=== PATIENT | female | born 1945 | race Caucasian/White ===

== ENCOUNTER 2016-07-03 17:02 | Observation (INO) | payer MEDICARE, BC ==
[~2016-07-03] VITALS: Ht 160 cm; Wt 56.2 kg
--- OUTSIDE RECORDS SUMMARY | 2016-07-03 17:08 | XMS REPORT | Summary of Care ---
Author Author Sherry Mckeon M.D. Unknown Address [address], [place] [id number] Phone Unavailable Care Team Providers Care Systems Trainer Name Role Phone Kadeem Jade M.D. Unavailable Unavailable Sherry Mckeon M.D. 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, K22.70) Status: Active Anemia (285.9, D64.9) Status: Active Chronic constipation (564.00, K59.09) Status: Active History of proctitis (V12.79, Z87.19) Status: Active Macrocytosis (289.89, D75.89) Status: Active Nicotine dependence (305.1, F17.200) Status: Active 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, 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) Status: Active Pseudophakia of left eye (V43.1, Z96.1) Status: Active Pseudophakia of right eye (V43.1, Z96.1) Status: Active WBC decreased (288.50, D72.819) Status: Active H/O endovascular stent graft for abdominal aortic aneurysm (V43.4, Z95.828) Status: Active Current every day smoker (305.1, F17.200) Status: Active Tobacco abuse counseling (V65.42, Z71.6) Status: Active Duodenal ulcer (532.90, K26.9) Status: Active Essential hypertension (401.9, I10) Status: Active Hypercholesterolemia (272.0, E78.0) Status: Active Osteoporosis (733.00, M81.0) Status: Active Malignant neoplasm of female breast (174.9, C50.919) Status: Active CAD S/P percutaneous coronary angioplasty (414.01, I25.10) Status: Active Actinic keratosis (702.0, L57.0) Status: Active History of squamous cell carcinoma of skin (V10.83, Z85.828) Status: Active Medications Name Dates Details Lisinopril 20 MG Oral Tablet take one tablet by mouth every day Quantity: 180 MckeonSherry M.D.* Started 29-Dec-2007 ActiveClaritin 10 MG Oral Capsule Take one tab daily as needed * Quantity: 30 Refills: 3 MckeonSherry M.D.* Started 11-Dec-2008 ActiveMetoprolol Tartrate 25 MG Oral Tablet TAKE ONE-HALF TABLET BY MOUTH TWO TIMES A DAY * Quantity: 90 Refills: 3 Kadeem Jade M.D.* Started 18-Nov-2012 ActiveAspirin EC 81 MG Oral Tablet Delayed Release TAKE 1 TABLET DAILY DIRECTED. * Quantity: 30 Refills: 0 MckeonSherry M.D.* Started 19-May-2013 ActiveBiotin 5000 MCG Oral Capsule TAKE 1 CAPSULE DAILY. * Refills: 0 MckeonSherry M.D.* Started 19-May-2013 ActiveVitamin D 1000 UNIT CAPS Take one tab daily. * Refills: 0 MckeonSherry M.D.* Started 19-May-2013 ActiveVitamin C 500 MG Oral Tablet TAKE 1 TABLET DAILY. * Refills: 0 MckeonSherry M.D.* Started 19-May-2013 ActiveDocusate Sodium 100 MG Oral Tablet TAKE 1 TABLET DAILY DIRECTED. * Refills: 0 MckeonSherry M.D.* Started 19-May-2013 ActiveAtorvastatin Calcium 20 MG Oral Tablet TAKE 1 TABLET DAILY. * Quantity: 180 Refills: 1 MckeonSherry M.D.* Started 09-Jan-2014 ActiveZoledronic Acid 5 MG/100ML Intravenous Solution INFUSE 5MG INTRAVENOUSLY OVER 15 MINUTES DIRECTED. * Quantity: 1 Refills: 0 MckeonSherry M.D.* Started 22-Jun-2014 ActivePepcid 20 MG Oral Tablet TAKE 1 TABLET DAILY DIRECTED. * Refills: 0 MckeonSherry M.D.* Started 09-Nov-2014 ActiveGuaiFENesin ER 600 MG Oral Tablet Extended Release 12 Hour TAKE 1 TABLET TWICE DAILY NEEDED. * Refills: 0 Sherry Mckeon M.D.* Started 18-May-2015 Active Allergies and Adverse Reactions Name Dates Details Morphine Derivatives Status: Active Penicillins Status: Active Past Medical History Name Dates Details History of Actinic keratosis (702.0, L57.0) Status: Resolved History of actinic keratosis (V13.3, Z87.2) Status: Resolved History of Basal Cell Carcinoma Of The Skin Of The Hand (173.61) Status: Resolved History of Combined form of senile cataract, left (366.19, H25.812) Status: Resolved History of diarrhea (V12.79, Z87.898) Status: Resolved History of diverticulitis of colon (V12.79, Z87.19) Status: Resolved History of Diverticulosis of colon (562.10, K57.30) Status: Resolved History of Encounter for screening colonoscopy (V76.51, Z12.11) Status: Resolved History of gastrointestinal hemorrhage (V12.79, Z87.19) Status: Resolved History of hyperopia (V12.49, Z86.69) Status: Resolved History of Microscopic hematuria (599.72, R31.2) Status: Resolved History of Multiparity (V61.5, Z64.1) Status: Resolved History of Postmenopausal status, age-related (V49.81, Z78.0) Status: Resolved History of Pre-operative exam (V72.84, Z01.818) Status: Resolved History of Proctitis (569.49, K62.89) Status: Resolved History of Rectal bleeding (569.3, K62.5) Status: Resolved History of Skin Cancer (V10.83) Status: Resolved History of Squamous Cell Carcinoma Of The Skin Of The Upper Extremities (173.6 ) Status: Resolved History of Visit for screening (V82.9, Z13.9) Status: Resolved Procedures Procedure Dates Details History of Total Knee Arthroplasty History of Tonsillectomy History of Breast Surgery Simple Mastectomy Completed:19-Oct-2012 History of Axillary Lymphadenectomy Completed:19-Oct-2012 History of Lymphatic Surgery Intraoperative Identification Of [place] Node Completed:19-Oct-2012 History of Deep Axillary Lymph Node Biopsy Completed:19-Oct-2012 History of Endovascular Repair Of Abdominal Aorta Aneurysm Completed: History of Endovasc Repair Aort Aneurysm Infrarenal Modul Bifurc Prosth Completed:04-Jan-2013 History of Placement Of Selective Arterial Catheter - Aortic Approach Completed:04-Jan-2013 History of Open Femoral Artery Expos For Deliv Aortic Endovasc Prosth Completed:04-Jan-2013 History of Central IV Line Child Age 5 Or Older Completed:04-Jan-2013 History of Diagnostic Esophagogastroduodenoscopy History of Upr GI Endoscopy With Control Of Bleeding History of Central IV Child Age 5 Or Older W/ Tunneling & Subcutan Port Completed:09-Feb-2013 History of Duodenoscopy With Biopsy History of Gastrotomy With Suture Of Bleeding Ulcer History of Vagotomy History of Cholecystectomy History of Tunneled Central IV Removal With Port Completed:07-Jun-2014 History of Extracaps Cataract Extract With Prosthesis Insert Right Eye History of Extracaps Cataract Extract With Prosthesis Insert Left Eye History of Cataract Extraction Procedures not documented Immunization Name Dates Details Diphtheria-Tetanus Toxoids 6.7-5 LFU/0.5ML Intramuscular Injectable Administered on:07-Jun-2006 Zoster (Zostavax) Administered on:04-Jun-2009 Fluzone Intramuscular Injectable Lot #: [id number] Administered on:01-Jan-2010 Influenza Administered on:08-Nov-2011 Pneumo (Pneumovax) Lot #: [id number] Administered on:05-Jan-2012 Influenza Lot #: [id number] Administered on:20-Dec-2012 Fluzone Intramuscular Injectable Lot #: [id number] Administered on:09-Jan-2014 Prevnar 13 Intramuscular Suspension Lot #: [id number] Administered on:22-Jun-2014 Family History natural daughter* Name Dates Details Family history of Adopted Status: Active natural son* Name Dates Details Family history of Adopted Status: Active Mother* Name Dates Details Family history of Acute Myocardial Infarction (V17.3) Status: Active Family history of Essential Hypertension Status: Active Family history of Skin Cancer (V16.8) Status: Active Family history of Mother At Age ____ Status: Active Father* Name Dates Details Family history of Heart Disease (V17.49) Status: Active Family history of CABG Status: Active Social History Name Dates Details Smoking Status* Current every day smoker Vital Signs Date Test Result Details 09:17 BP Systolic 140 mm[Hg] Status: BP Diastolic 70 mm[Hg] Status: Heart Rate 66 /min Status: Height 64.5 in Status: Weight 130 lb Status: Body Mass Index Calculated 21.97 kg/m2 Status: Body Surface Area Calculated 1.64 m2 Status: Results Date Description Value Details 08:10 CBC w/ Auto Diff 7150 Comments: Fastin hours WBC 4.6 K/uL (Better) Range: 4.5-11.0 RBC 4.19 mil/uL (Better) Range: 3.60-5.00 HGB 14.3 g/dL (Better) Range: 12.0-16.0 HCT 42.7 % (Better) Range: 36.0-48.0 MCV 101.9 fL (Above high threshold) Range: 80.0-99.0 MCH 34.1 pg (Above high threshold) Range: 27.3-32.5 MCHC 33.4 % (Better) Range: 32.0-36.0 RDW 13.8 % (Better) Range: 11.6-14.8 PLATELETS 197 K/uL (Better) Range: 150-400 MPV 7.7 fL (Better) Range: 6.0-11.0 %NEUTRO 68.8 % (Better) Range: 37.0-80.0 %LYMPHS 17.5 % (Better) Range: 13.0-50.0 %MONO 9.1 % (Better) Range: 0.0-12.0 %EOS 2.2 % (Better) Range: 0.0-7.0 %BASO 0.6 % (Better) Range: 0.0-2.5 %ANIBAL 1.8 % (Better) Range: 0.0-5.0 NEUTRO 3.2 K/uL (Better) Range: 2.0-6.9 LYMPHS 0.8 K/uL (Better) Range: 0.6-3.4 MONOS 0.4 K/uL (Better) Range: 0.0-0.9 EOS 0.1 K/uL (Better) Range: 0.0-0.7 BASO 0.0 K/uL (Better) Range: 0.0-0.2 08:22 Urinalysis, Reflex to Microscopic or Culture PRN 8005 Comments: Fastin hours pH 7.5 (Better) Range: 5.0-7.5 SP GRAVITY 1.010 (Better) Range: 1.010-1.030 APPEARANCE CLEAR (Better) Range: Clear COLOR YELLOW (Better) Range: Straw-Yellow PROTEIN NEGATIVE mg/dL (Better) Range: Negative-Trace GLUCOSE NEGATIVE mg/dL (Better) Range: Negative KETONE NEGATIVE mg/dL (Better) Range: Negative BILIRUB NEGATIVE (Better) Range: Negative BLOOD TRACE (Abnormal) Range: Negative UROBIL 1.0 EU/dL (Better) Range: 0.2-1.0 NITRITE NEGATIVE (Better) Range: Negative LEUK TRACE (Abnormal) Range: Negative 08:22 Urine Microscopic UMIC Comments: Fastin hours WBC 3-5 /HPF (Better) Range: 0-5 RBC 0-2 /HPF (Better) Range: 0-2 EPITH 0-2 /HPF (Better) Range: 0-10 08:57 LIPID PROFILE 1184 Comments: Fastin hours CHOLESTEROL 153 mg/dL (Better) Range: <200 TRIGLYCERIDES 40 mg/dL (Better) Range: 30-200 HDL Cholesterol 64 mg/dL (Better) Range: >39 NON HDL CHOLESTEROL 89 (Better) CARDIAC RSK FACTOR 2.4 units (Below low threshold) Range: 4.4-5.0 LDL - CALCULATED 81 mg/dL (Better) Range: 0-130 08:57 Comprehensive Metabolic Panel 1212 Comments: Fastin hours SODIUM 135 mmol/L (Better) Range: 133-144 POTASSIUM 4.2 mmol/L (Better) Range: 3.5-5.1 CHLORIDE 98 mmol/L (Better) Range: 98-110 CARBON DIOXIDE 25.4 mmol/L (Better) Range: 23.0-33.0 ANION GAP 12 mmol/L (Better) Range: 6-16 BUN 6 mg/dL (Below low threshold) Range: 7-18 CREATININE, SERUM 0.60 mg/dL (Better) Range: 0.55-1.02 Comments: Please note new reference ranges effective 2014.----- BUN:CREATININE RATIO 10 (Better) EST GFR, >60 ml/min (Better) Range: >60 EST GFR, NON-AFR TAJIK >60 ml/min (Better) Range: >60 Comments: EST GFR is reported in ml/min per 1.73 m2 of body surface area. For -Czech, please multiple result by 1.2.----- GLUCOSE 90 mg/dL (Better) Range: 70-100 ALK PHOSPHATASE 71 U/L (Better) Range: 46-116 TOTAL BILIRUBIN 0.50 mg/dL (Better) Range: 0.20-1.00 AST 20 U/L (Better) Range: 8-35 ALT 24 U/L (Better) Range: 14-59 Comments: Please note new reference ranges. Effective 05/18/2014.----- ALBUMIN 3.2 g/dL (Below low threshold) Range: 3.4-5.0 TOTAL PROTEIN 7.1 g/dL (Better) Range: 6.4-8.2 A/G RATIO 0.8 units (Below low threshold) Range: 1.0-1.8 CALCIUM 8.8 mg/dL (Better) Range: 8.5-10.1 09:24 THYROID STIM. HORMONE 3602 Comments: Fastin hours THYROID STIM. HORMONE 0.738 uIU/mL (Better) Range: 0.550-4.780 Comments: No established reference ranges for infants and children <2 years of age----- 14:17 CT CTA ABD WITH IV CONTRAST Comments: Exam Date: 08/20/2015 12: 59Dictation Date: 08/20/2015 14:17 XC CTA ABD (Better) Plan of Care Planned Observations* Name Dates Details Planned Goals not documented Goal Planned Encounters* Appointment; Provider: Jerod Paz On 02-Jul-2016 08:30 * Appointment; Provider: Sherry Mckeon On 02-Jan-2016 09:00 * Appointment; Provider: Kadeem Jade On 19-Dec-2015 09:30 * Appointment; Provider: Ja Palacios On 13:00 * Appointment; Provider: Schedule Radiology On 08-May-2015 08:30 * Appointment; Provider: Schedule Radiology On 09-Feb-2015 09:30 * Appointment; Provider: Tonya Dumont On 31-Jan-2015 11:45 * Appointment; Provider: Schedule Radiology On 06-Dec-2014 09:30 * Appointment; Provider: Schedule Radiology On 09:30 * Appointment; Provider: Schedule Radiology On 09:30 * Appointment; Provider: Tonya Dumont On 13:45 * Appointment; Provider: Schedule Radiology On 11:30 * Appointment; Provider: Schedule Radiology On 11:30 * Appointment; Provider: Schedule Radiology On 09:30 * Appointment; Provider: Schedule Radiology On 09:30 * Appointment; Provider: Daniele Gil On 08:00 * Appointment; Provider: Daniele Gil On 09-Jun-2013 10:00 * Appointment; Provider: Daniele Gil On 06-Apr-2013 14:00 * Appointment; Provider: Daniele Gil On 04-Jan-2013 07:30 * Appointment; Provider: Kadeem Jade On 30-Nov-2012 08:15 * Appointment; Provider: Daniele Gil On 19-Oct-2012 13:30 * Appointment; Provider: Sherry Mckeon On 04-Jul-2008 08:00 * Appointment; Provider: Sherry Mckeon On 08-Oct-2007 08:00 Instructions * Instructions not documented Encounters Appointment; Sherry Mckeon Encounter Diagnosis: Problem not documented On 09:30 Appointment; Jerod Paz Encounter Diagnosis: Problem not documented On 29-Jun-2015 08:30 Appointment; Sherry Mckeon Encounter Diagnosis: Problem not documented On 18-May-2015 13:45 Appointment; Sherry Mckeon Encounter Diagnosis: Problem not documented On 26-Jan-2015 14:00 Appointment; Kadeem Jade Encounter Diagnosis: Problem not documented On 13-Dec-2014 09:30 Appointment; Sherry Mckeon Encounter Diagnosis: Problem not documented On 09-Nov-2014 09:30 Appointment; Daniele Gil Encounter Diagnosis: Problem not documented On 13:00 Appointment; Ja Palacios Encounter Diagnosis: Problem not documented On 13:45 Appointment; Jerod Paz Encounter Diagnosis: Problem not documented On 18:15 Appointment; Jerod Paz Encounter Diagnosis: Problem not documented On 10:45 Appointment; Daniele Gil Encounter Diagnosis: Problem not documented On 14:00 Appointment; Ja Palacios Encounter Diagnosis: Problem not documented On 09:15 Appointment; Daniele Gil Encounter Diagnosis: Problem not documented On 10:30 Appointment; Ja Palacios Encounter Diagnosis: Problem not documented On 08:00 Appointment; Ja Palacios Encounter Diagnosis: Problem not documented On 09:00 Appointment; Ja Palacios Encounter Diagnosis: Problem not documented On 04-Aug-2014 10:45 Appointment; Ja Palacios Encounter Diagnosis: Problem not documented On 26-Jul-2014 08:30 Appointment; Ja Palacios Encounter Diagnosis: Problem not documented On 25-Jul-2014 12:00 Appointment; Ja Palacios Encounter Diagnosis: Problem not documented On 11-Jul-2014 09:00 Appointment; Ja Palacios Encounter Diagnosis: Problem not documented On 04-Jul-2014 15:00 Appointment; Jerod Paz Encounter Diagnosis: Problem not documented On 26-Jun-2014 18:00 Appointment; Marito Nickerson Encounter Diagnosis: Problem not documented On 23-Jun-2014 09:15 Appointment; Jerod Paz Encounter Diagnosis: Problem not documented On 23-Jun-2014 08:30 Appointment; Sherry Mckeon Encounter Diagnosis: Problem not documented On 22-Jun-2014 09:00 Appointment; Daniele Gil Encounter Diagnosis: Problem not documented On 21-Jun-2014 13:15 Appointment; Daniele Gil Encounter Diagnosis: Problem not documented On 07-Jun-2014 10:00 Appointment; Sherry Mckeon Encounter Diagnosis: Problem not documented On 09-Jan-2014 15:15 Appointment; Kadeem Jade Encounter Diagnosis: Problem not documented On 14-Dec-2013 09:30 Appointment; Bird Reyes Encounter Diagnosis: Problem not documented On 30-Nov-2013 09:30 Appointment; Indira Dumont Encounter Diagnosis: Problem not documented On 14:30 Appointment; Daniele Gil Encounter Diagnosis: Problem not documented On 10:00 Appointment; Sherry Mckeon Encounter Diagnosis: Problem not documented On 14:45 Appointment; Bird Reyes Encounter Diagnosis: Problem not documented On 11:30 Appointment; Daniele Gil Encounter Diagnosis: Problem not documented On 13:15
--- OUTSIDE RECORDS SUMMARY | 2016-07-03 17:08 | XMS REPORT ---
Author Author GENERATED, SYSTEM Organization Unknown Address Unknown Phone Unavailable Care Team Providers Care Senior Process Engineer Name Role Phone MD RUSSEL, GARRETT [phone] Reason For Visit Reason for Visit from 04/10/2015 10:20 AM:* Pt Stated Reason for Adm : Neupogen Injection Chief Complaint D70.1, Z92.21 Social History Functional Status Functional Status from 05/04/2015 10:25 AM:* LOC : Alert * Oriented To : Person,Place,Time Functional Status from 05/03/2015 10:18 AM:* LOC : Alert * Oriented To : Person,Place,Time,Event Functional Status from 05/02/2015 9:52 AM:* LOC : Alert * Oriented To : Person,Place,Time,Event Functional Status from 05/01/2015 9:22 AM:* LOC : Alert * Oriented To : Person,Place,Time,Event Functional Status from 04/27/2015 8:12 AM:* LOC : Alert * Oriented To : Person,Place,Time Functional Status from 04/26/2015 8:54 AM:* LOC : Alert * Oriented To : Person,Place,Time,Event Functional Status from 04/25/2015 9:30 AM:* LOC : Alert * Oriented To : Person,Place,Time Functional Status from 04/20/2015 10:25 AM:* LOC : Alert * Oriented To : Person,Place,Time Functional Status from 04/19/2015 9:37 AM:* LOC : Alert * Oriented To : Person,Place,Time Functional Status from 04/18/2015 9:54 AM:* LOC : Alert * Oriented To : Person,Place,Time Functional Status from 04/17/2015 11:03 AM:* LOC : Alert * Oriented To : Person,Place,Time,Event Functional Status from 04/13/2015 9:38 AM:* LOC : Alert * Oriented To : Person,Place,Time Functional Status from 04/12/2015 9:53 AM:* LOC : Alert * Oriented To : Person,Place,Time,Event Functional Status from 04/11/2015 10:54 AM:* LOC : Alert * Oriented To : Person,Place,Time Functional Status from 04/10/2015 10:20 AM:* LOC : Alert * Oriented To : Person,Place,Time,Event Vital Signs Hospital Vital Signs from 05/04/2015 10:25 AM:* Height : 5/4 ft,in * Temperature : 97.5 F * Pulse : 65 * Respirations : 18 * BP : 131/62 Hospital Vital Signs from 05/03/2015 10:18 AM:* Height : 5/4 ft,in * Temperature : 97.5 F * Pulse : 65 * Respirations : 18 * BP : 131/61 Hospital Vital Signs from 05/02/2015 9:42 AM:* Height : 5/4 ft,in * Temperature : 97.8 F * Pulse : 69 * Respirations : 20 * BP : 117/56 Hospital Vital Signs from 05/01/2015 9:23 AM:* Height : 5/4 ft,in * Temperature : 97.2 F * Pulse : 68 * BP : 162/88 Hospital Vital Signs from 04/27/2015 8:10 AM:* Height : 5/4 ft,in * Temperature : 96.5 F * Pulse : 73 * BP : 148/63 Hospital Vital Signs from 04/26/2015 8:54 AM:* Height : 5/4 ft,in * Temperature : 97.7 F * Pulse : 58 * Respirations : 18 * BP : 127/63 Hospital Vital Signs from 04/25/2015 10:04 AM:* Height : 5/4 ft,in * Temperature : 97.6 F * Pulse : 55 * Respirations : 18 * BP : 131/68 Hospital Vital Signs from 04/20/2015 10:05 AM:* Height : 5/4 ft,in * Temperature : 98.4 F * Pulse : 60 * Respirations : 18 * BP : 121/59 Hospital Vital Signs from 04/19/2015 9:35 AM:* Height : 5/4 ft,in * Temperature : 96.8 F * Pulse : 62 * Respirations : 18 * BP : 135/57 Hospital Vital Signs from 04/18/2015 9:54 AM:* Height : 5/4 ft,in * Temperature : 98.9 F * Pulse : 60 * Respirations : 18 * BP : 110/63 Hospital Vital Signs from 04/17/2015 10:45 AM:* Height : 5/4 ft,in * Temperature : 98.7 F * Pulse : 57 * Respirations : 18 * BP : 130/66 Hospital Vital Signs from 04/13/2015 9:55 AM:* Height : 5/4 ft,in * Temperature : 97.0 F * Pulse : 63 * Respirations : 18 * BP : 131/54 Hospital Vital Signs from 04/12/2015 9:52 AM:* Height : 5/4 ft,in * Temperature : 96.9 F * Pulse : 63 * Respirations : 16 * BP : 135/63 Hospital Vital Signs from 04/11/2015 10:56 AM:* Height : 5/4 ft,in * Temperature : 96.6 F * Pulse : 64 * Respirations : 18 * BP : 118/56 Hospital Vital Signs from 04/10/2015 10:20 AM:* Height : 5/4 ft,in * Temperature : 97.3 F * Pulse : 62 * Respirations : 18 * BP : 136/67 Results Problems Encounter Diagnosis No relevant problems exist. Additional Problems * Abdominal Aortic Aneurysm Comment:Problem resolved by [facility] upon Discharge, Status:Resolved. * Anemia Comment:Problem resolved by [facility] upon Discharge, Status: Resolved. * Coronary Arteriosclerosis Comment:Problem resolved by [facility] upon Discharge, Status:Resolved. * Excision of Breast Tissue Comment:Problem resolved by [facility] upon Discharge, Status:Resolved. * Repair of Aneurysm of Abdominal Aorta Comment:Problem resolved by [facility] upon Discharge, Status:Resolved. Encounters Encounter Diagnosis No relevant problems exist. Plan of Care Procedures * Completed Procedure Code: 00.00 Procedure Name: not valued, on 07/11/2014 12: 00 AM * Completed , on 04/06/2013 12:00 AM * Completed , on 04/06/2013 12:00 AM * Completed , on 04/06/2013 12:00 AM * Completed , on 04/06/2013 12:00 AM * Completed , on 04/06/2013 12:00 AM * Completed , on 04/06/2013 12:00 AM * Completed , on 04/04/2013 12:00 AM * Completed , on 01/04/2013 12:00 AM * Completed , on 01/04/2013 12:00 AM * Completed , on 01/04/2013 12:00 AM * Completed , on 11/30/2012 12:00 AM * Completed , on 11/30/2012 12:00 AM * Completed , on 11/30/2012 12:00 AM * Completed , on 11/30/2012 12:00 AM * Completed , on 11/30/2012 12:00 AM * Completed , on 11/30/2012 12:00 AM * Completed , on 11/30/2012 12:00 AM * Completed , on 11/30/2012 12:00 AM * Completed , on 11/30/2012 12:00 AM * Completed , on 10/19/2012 12:00 AM * Completed , on 10/19/2012 12:00 AM * Completed , on 10/19/2012 12:00 AM * Completed , on 10/19/2012 12:00 AM * Completed , on 10/19/2012 12:00 AM * Completed , on 10/19/2012 12:00 AM Immunizations No immunizations administered or ordered. Hospital Course Hospital Discharge Instructions Allergies, Adverse Reactions, Alerts * Penicillins causes "voice changed". * morphine causes Nausea. * No Latex Allergy. * No IV Contrast Allergy. * No Known Food Allergies. Medication Medication reconciliation has not been performed.
--- OUTSIDE RECORDS SUMMARY | 2016-07-03 17:08 | XMS REPORT ---
Author Author GENERATED, SYSTEM Organization Unknown Address Unknown Phone Unavailable Care Team Providers Care Adjunct English Instructor Name Role Phone MD RUSSEL, GARRETT [phone] Reason For Visit Reason for Visit from 01/09/2015 9:10 AM:* Pt Stated Reason for Adm : Neupogen Chief Complaint D70.1, Z92.21 Social History Functional Status Functional Status from 02/02/2015 11:22 AM:* LOC : Alert * Oriented To : Person,Place,Time,Event Functional Status from 02/01/2015 7:58 AM:* LOC : Alert * Oriented To : Person,Place,Time Functional Status from 01/31/2015 8:17 AM:* LOC : Alert * Oriented To : Person,Place,Time,Event Functional Status from 01/30/2015 10:37 AM:* LOC : Alert * Oriented To : Person,Place,Time,Event Functional Status from 01/26/2015 8:44 AM:* LOC : Alert * Oriented To : Person,Place,Time,Event Functional Status from 01/25/2015 7:44 AM:* LOC : Alert * Oriented To : Person,Place,Time,Event Functional Status from 01/24/2015 8:40 AM:* LOC : Alert * Oriented To : Person,Place,Time Functional Status from 01/23/2015 9:03 AM:* LOC : Alert * Oriented To : Person,Place,Time,Event Functional Status from 01/19/2015 9:14 AM:* LOC : Alert * Oriented To : Person,Place,Time,Event Functional Status from 01/18/2015 9:04 AM:* LOC : Alert * Oriented To : Person,Place,Time,Event Functional Status from 01/17/2015 8:23 AM:* LOC : Alert * Oriented To : Person,Place,Time Functional Status from 01/16/2015 7:26 AM:* LOC : Alert * Oriented To : Person,Place,Time,Event Functional Status from 01/12/2015 8:12 AM:* LOC : Alert * Oriented To : Person,Place,Time,Event Functional Status from 01/11/2015 8:04 AM:* LOC : Alert * Oriented To : Person,Place,Time,Event Functional Status from 01/10/2015 7:50 AM:* LOC : Alert * Oriented To : Person,Place,Time Functional Status from 01/09/2015 9:10 AM:* LOC : Alert * Oriented To : Person,Place,Time,Event Vital Signs Hospital Vital Signs from 02/02/2015 11:20 AM:* Height : 5/4 ft,in * Temperature : 98.0 F * Pulse : 69 * Respirations : 18 * BP : 125/64 Hospital Vital Signs from 02/01/2015 7:58 AM:* Height : 5/4 ft,in * Temperature : 97.7 F * Pulse : 68 * Respirations : 18 * BP : 122/61 Hospital Vital Signs from 01/31/2015 8:16 AM:* Height : 5/4 ft,in * Temperature : 97.0 F * Pulse : 65 * Respirations : 18 * BP : 130/65 Hospital Vital Signs from 01/30/2015 10:32 AM:* Height : 5/4 ft,in * Temperature : 98.2 F * Pulse : 61 * Respirations : 18 * BP : 130/75 Hospital Vital Signs from 01/26/2015 8:45 AM:* Height : 5/4 ft,in * Temperature : 97.6 F * Pulse : 62 * Respirations : 18 * BP : 128/66 Hospital Vital Signs from 01/25/2015 7:45 AM:* Height : 5/4 ft,in * Temperature : 98.1 F * Pulse : 62 * Respirations : 18 * BP : 126/59 Hospital Vital Signs from 01/24/2015 8:47 AM:* Height : 5/4 ft,in * Temperature : 98.6 F * Pulse : 64 * Respirations : 18 * BP : 121/54 Hospital Vital Signs from 01/23/2015 9:02 AM:* Height : 5/4 ft,in * Temperature : 98.7 F * Pulse : 69 * Respirations : 18 * BP : 150/69 Hospital Vital Signs from 01/19/2015 9:17 AM:* Height : 5/4 ft,in * Temperature : 96.8 F * Pulse : 63 * Respirations : 18 * BP : 133/63 Hospital Vital Signs from 01/18/2015 9:04 AM:* Height : 5/4 ft,in * Temperature : 97.1 F * Pulse : 66 * Respirations : 18 * BP : 134/60 Hospital Vital Signs from 01/17/2015 8:23 AM:* Height : 5/4 ft,in * Temperature : 98.2 F * Pulse : 60 * Respirations : 18 * BP : 132/57 Hospital Vital Signs from 01/16/2015 7:26 AM:* Height : 5/4 ft,in * Temperature : 98.0 F * Pulse : 67 * Respirations : 18 * BP : 139/71 Hospital Vital Signs from 01/12/2015 8:12 AM:* Height : 5/4 ft,in * Temperature : 98.3 F * Pulse : 66 * Respirations : 18 * BP : 133/68 Hospital Vital Signs from 01/11/2015 8:04 AM:* Height : 5/4 ft,in * Temperature : 97.0 F * Pulse : 61 * Respirations : 18 * BP : 134/66 Hospital Vital Signs from 01/10/2015 7:50 AM:* Height : 5/4 ft,in * Temperature : 98.0 F * Pulse : 68 * Respirations : 18 * BP : 139/66 Hospital Vital Signs from 01/09/2015 9:12 AM:* Height : 5/4 ft,in * Temperature : 98.7 F * Pulse : 69 * Respirations : 18 * BP : 154/76 Results Problems Encounter Diagnosis No relevant problems [...]
--- OUTSIDE RECORDS SUMMARY | 2016-07-03 17:08 | XMS REPORT | Summary of Care ---
Author Author Sherry Mckeon M.D. Unknown Address [address], [place] [id number] Phone Unavailable Care Team Providers Care Divinity Professor Name Role Phone Kadeem Jade M.D. Unavailable Unavailable Sherry Mckeon M.D. 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, K22.70) Status: Active Anemia (285.9, D64.9) Status: Active GI bleed (578.9, K92.2) Status: Active 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, 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 Postmenopausal status, age-related (V49.81, Z78.0) Status: Active Duodenal ulcer (532.90, K26.9) Status: Active Sinusitis (473.9, J32.9) Status: Active Encounter for screening colonoscopy (V76.51, Z12.11) Status: Active Rectal bleeding (569.3, K62.5) Status: Active Chronic constipation (564.00, K59.00) Status: Active Diverticulosis of colon (562.10, K57.30) Status: Active History of proctitis (V12.79, Z87.19) Status: Active Macrocytosis (289.89, D75.89) Status: Active Aneurysm of abdominal aorta (441.4, I71.4) Status: Active Nicotine dependence (305.1) Status: Active Tobacco abuse counseling (V65.42, Z71.6) Status: Active Hypertension (401.9, I10) Status: Active Hypercholesterolemia (272.0, E78.0) Status: Active CAD S/P percutaneous coronary angioplasty (414.01, I25.10) Status: Active Osteoporosis (733.00, M81.0) Status: Active Malignant neoplasm of female breast (174.9, C50.919) Status: Active Medications Name Dates Details Lisinopril 20 MG Oral Tablet take one tablet by mouth every day Quantity: 180 MckeonSherry M.D.* Started 29-Dec-2007 ActiveClaritin 10 MG Oral Capsule Take one tab daily as needed * Quantity: 30 Refills: 3 MckeonSherry M.D.* Started 11-Dec-2008 ActiveMetoprolol Tartrate 25 MG Oral Tablet TAKE ONE-HALF TABLET BY MOUTH TWO TIMES A DAY * Quantity: 90 Refills: 1 Kadeem Jade M.D.* Started 18-Nov-2012 ActiveAspirin EC 81 MG Oral Tablet Delayed Release TAKE 1 TABLET DAILY DIRECTED. * Quantity: 30 Refills: 0 MckeonSherry M.D.* Started 19-May-2013 ActiveLutein 20 MG Oral Capsule TAKE DIRECTED. * Refills: 0 MckeonSherry M.D.* Started 19-May-2013 ActiveBiotin 5000 MCG Oral Capsule TAKE 1 CAPSULE DAILY. * Refills: 0 MckeonSherry M.D.* Started 19-May-2013 ActiveVitamin D 1000 UNIT Oral Capsule Take one tab daily. * Refills: 0 MckeonSherry M.D.* Started 19-May-2013 ActiveVitamin C 500 MG Oral Tablet TAKE 1 TABLET DAILY. * Refills: 0 MckeonSherry M.D.* Started 19-May-2013 ActiveDocusate Sodium 100 MG Oral Tablet TAKE 1 TABLET DAILY DIRECTED. * Refills: 0 MckeonSherry M.D.* Started 19-May-2013 ActiveAtorvastatin Calcium 20 MG Oral Tablet TAKE 1 TABLET DAILY. * Quantity: 180 Refills: 0 MckeonSherry M.D.* Started 09-Jan-2014 ActiveClindamycin HCl - 150 MG Oral Capsule TAKE 4 CAPSULES BY MOUTH 1 HOUR PRIOR TO APPOINTMENT * Quantity: 12 Refills: 0 MckeonSherry M.D.* Started 09-Jan-2014 ActiveZoledronic Acid 5 MG/100ML Intravenous Solution INFUSE 5MG INTRAVENOUSLY OVER 15 MINUTES DIRECTED. * Quantity: 1 Refills: Sherry Sow M.D.* Started 22-Jun-2014 Active Allergies and Adverse Reactions Name Dates Details Morphine Derivatives Status: Active Penicillins Status: Active Past Medical History Name Dates Details History of Actinic keratosis (702.0, L57.0) Status: Resolved History of Basal Cell Carcinoma Of The Skin Of The Hand (173.61) Status: Resolved History of diverticulitis of colon (V12.79, Z87.19) Status: Resolved History of Microscopic hematuria (599.72, R31.2) Status: Resolved History of Multiparity (V61.5, Z64.1) Status: Resolved History of Proctitis (569.49, K62.89) Status: Resolved History of Skin Cancer (V10.83) [...] History of Lymphatic Surgery Intraoperative Identification Of [place] Node Completed:19-Oct-2012 History of Deep Axillary Lymph [...] Tunneled Central IV Removal With Port Completed:07-Jun-2014 CT CTA ABD WITH IV CONTRAST Ordered:21-Jun-2014 CT CTA PELVIS Ordered:21-Jun-2014 Immunization Name Dates Details Diphtheria-Tetanus Toxoids 6.7-5 LFU/0.5ML Intramuscular Injectable Administered on:07-Jun-2006 Zoster (Zostavax) Administered on:04-Jun-2009 Fluzone Intramuscular Injectable Lot #: [id number] Administered on:01-Jan-2010 Influenza Administered on:08-Nov-2011 Pneumo (Pneumovax) Lot #: [id number] Administered on:05-Jan-2012 Influenza Lot #: [id number] Administered on:20-Dec-2012 Fluzone Intramuscular Injectable Lot #: [id number] Administered on:09-Jan-2014 Prevnar 13 Intramuscular Suspension Lot #: [id number] Administered on:22-Jun-2014 Family History natural daughter* Name [...] Social History Name Dates Details Smoking Status* Smoker. current status unknown * Current every day smoker Vital Signs Date Test Result Details 22-Jun-2014 09:14 BP Systolic 150 mm[Hg] Status: BP Diastolic 80 mm[Hg] Status: Heart Rate 54 /min Status: Weight 143 lb Status: Body Mass Index Calculated 24.93 kg/m2 Status: Body Surface Area Calculated 1.69 m2 Status: Results Date Description Value Details 20-Jun-2014 08:09 CBC w/ Auto Diff 7150 Comments: 4-16 Fastin hours WBC 5.1 K/uL (Better) Range: 4.5-11.0 RBC 4.00 mil/uL (Better) Range: 3.60-5.00 HGB 13.5 g/dL (Better) Range: 12.0-16.0 HCT 39.3 % (Better) Range: 36.0-48.0 MCV 98.2 fL (Better) Range: 80.0-99.0 MCH 33.7 pg (Above high threshold) Range: 27.3-32.5 MCHC 34.3 % (Better) Range: 32.0-36.0 RDW 13.8 % (Better) Range: 11.6-14.8 PLATELETS 183 K/uL (Better) Range: 150-400 MPV 7.8 fL (Better) Range: 6.0-11.0 %NEUTRO 62.4 % (Better) Range: 37.0-80.0 %LYMPHS 25.2 % (Better) Range: 13.0-50.0 %MONO 7.9 % (Better) Range: 0.0-12.0 %EOS 2.4 % (Better) Range: 0.0-7.0 %BASO 0.6 % (Better) Range: 0.0-2.5 %ANIBAL 1.5 % (Better) Range: 0.0-5.0 NEUTRO 3.2 K/uL (Better) Range: 2.0-6.9 LYMPHS 1.3 K/uL (Better) Range: 0.6-3.4 MONOS 0.4 K/uL (Better) Range: 0.0-0.9 EOS 0.1 K/uL (Better) Range: 0.0-0.7 BASO 0.0 K/uL (Better) Range: 0.0-0.2 08:27 Urinalysis, Reflex to Microscopic or Culture PRN [id number] Comments: 4- 16 Fastin hours pH 6.5 (Better) Range: 5.0-7.5 SP GRAVITY 1.015 (Better) Range: 1.010-1.030 APPEARANCE CLEAR (Better) Range: Clear COLOR YELLOW (Better) Range: Straw-Yellow PROTEIN NEGATIVE mg/dL (Better) Range: Negative-Trace GLUCOSE NEGATIVE mg/dL (Better) Range: Negative KETONE NEGATIVE mg/dL (Better) Range: Negative BILIRUB NEGATIVE (Better) Range: Negative BLOOD SMALL (Abnormal) Range: Negative UROBIL 0.2 EU/dL (Better) Range: 0.2-1.0 NITRITE NEGATIVE (Better) Range: Negative LEUK NEGATIVE (Better) Range: Negative 08:26 Urine Microscopic UMIC Comments: Fastin hours RBC 3-5 /HPF (Abnormal) Range: 0-2 MUCUS 2+ /LPF (Better) Range: Negative-2+ BACTERIA Trace /HPF (Better) Range: Negative-Trace EPITH 0-2 /HPF (Better) Range: 0-10 08:37 Comprehensive Metabolic Panel 1212 Comments: Fastin hours SODIUM 135 mmol/L (Better) Range: 133-144 POTASSIUM 4.4 mmol/L (Better) Range: 3.5-5.1 CHLORIDE 101 mmol/L (Better) Range: 98-110 CARBON DIOXIDE 28.4 mmol/L (Better) Range: 23.0-33.0 ANION GAP 6 mmol/L (Better) Range: 6-16 BUN 9 mg/dL (Better) Range: 7-18 CREATININE, SERUM 0.70 mg/dL (Better) Range: 0.43-1.13 BUN:CREATININE RATIO 13 (Better) EST GFR, >60 ml/min (Better) Range: >60 EST GFR, NON-AFR LIBERIAN >60 ml/min (Better) Range: >60 Comments: EST GFR is reported in ml/min per 1.73 m2 of body surface area. For -Omani, please multiple result by 1.2.----- GLUCOSE 96 mg/dL (Better) Range: 70-100 ALK PHOSPHATASE 82 U/L (Better) Range: 46-116 TOTAL BILIRUBIN 0.40 mg/dL (Better) Range: 0.20-1.00 AST 18 U/L (Better) Range: 8-35 ALT 17 U/L (Better) Range: 14-59 Comments: Please note new reference ranges. Effective 05/18/2014.----- ALBUMIN 3.1 g/dL (Below low threshold) Range: 3.4-5.0 TOTAL PROTEIN 6.9 g/dL (Better) Range: 6.4-8.2 A/G RATIO 0.8 units (Below low threshold) Range: 1.0-1.8 CALCIUM 9.3 mg/dL (Better) Range: 8.5-10.1 08:36 LIPID PROFILE 1184 Comments: Fastin hours CHOLESTEROL 143 mg/dL (Better) Range: <200 TRIGLYCERIDES 53 mg/dL (Better) Range: 30-200 HDL Cholesterol 58 mg/dL (Better) Range: >39 NON HDL CHOLESTEROL 85 (Better) CARDIAC RSK FACTOR 2.5 units (Below low threshold) Range: 4.4-5.0 LDL - CALCULATED 74 mg/dL (Better) Range: 0-130 10:26 THYROID STIM. HORMONE 3602 Comments: Fastin hours THYROID STIM. HORMONE 1.718 uIU/mL (Better) Range: 0.550-4.780 Comments: \[id number]\No established reference ranges for infants and children < 2 years of ageNo established reference ranges for infants and children <2 years of age----- Plan of Care Planned Observations* Name Dates Details Planned Goals not documented Goal Planned Encounters* Appointment; Provider: Kadeem Jade On 13-Dec-2014 09:30 * Appointment; Provider: Sherry Mckeon On 09:00 * Appointment; Provider: Daniele Gil On 10:30 * Appointment; Provider: Marito Nickerson On 23-Jun-2014 09:15 * Appointment; Provider: Jerod Paz On 23-Jun-2014 08:30 * Appointment; Provider: Daniele Gil On 08:00 * Appointment; Provider: Daniele Gil On 09-Jun-2013 10:00 * Appointment; Provider: aDniele Gil On 06-Apr-2013 14:00 * Appointment; Provider: [...] Encounter Diagnosis: Problem not documented On 13:15 Appointment; Sherry Mckeon Encounter Diagnosis: Problem not documented On 03-Aug-2013 10:30 Appointment; Bird Reyes Encounter Diagnosis: Problem not documented On 01-Jul-2013 11:30 Appointment; Daniele Gil Encounter Diagnosis: Problem not documented On 24-Jun-2013 10:45 Appointment; Maritza Morris Encounter Diagnosis: Problem not documented On 22-Jun-2013 08:45 Appointment; Sherry Mckeon Encounter Diagnosis: Problem not documented On 21-Jun-2013 09:00 Appointment; Marito Nickerson Encounter Diagnosis: Problem not documented On 20-Jun-2013 08:45 Appointment; Sherry Mckeon Encounter Diagnosis: Problem not documented On 09-Jun-2013 14:45 Appointment; Indira Dumont Encounter Diagnosis: Problem not documented On 09-Jun-2013 13:00 Appointment; Daniele Gil Encounter Diagnosis: Problem not documented On 09-Jun-2013 09:00 Appointment; Bird Reyes Encounter Diagnosis: Problem not documented On 13-May-2013 14:15 Appointment; Daniele Gil Encounter Diagnosis: Problem not documented On 09-May-2013 14:45 Appointment; Mayco Galindo Encounter Diagnosis: Problem not documented On 27-Apr-2013 13:30 Appointment; Sherry Mckeon Encounter Diagnosis: Problem not documented On 20-Apr-2013 14:45 Appointment; Bird Reyes Encounter Diagnosis: Problem not documented On 20-Apr-2013 14:00 Appointment; Daniele Gil Encounter Diagnosis: Problem not documented On 18-Apr-2013 13:15 Appointment; TalonAugust Encounter Diagnosis: Problem not documented On 06-Apr-2013 10:00 Appointment; TalonAugust Encounter Diagnosis: Problem not documented On 04-Apr-2013 12:25 Appointment; Bird Reyes Encounter Diagnosis: Problem not documented On 01-Apr-2013 15:00 Appointment; Bird Reyes Encounter Diagnosis: Problem not documented On 10-Mar-2013 10:15 Appointment; Sherry Mckeon Encounter Diagnosis: Problem not documented On 21-Feb-2013 13:15 Appointment; Bird Reyes Encounter Diagnosis: Problem not documented On 18-Feb-2013 14:15 Appointment; Bird Reyes Encounter Diagnosis: Problem not documented On 09-Feb-2013 14:30 Appointment; Daniele Gil Encounter Diagnosis: Problem not documented On 09-Feb-2013 11:00 Appointment; Daniele Gil Encounter Diagnosis: Problem not documented On 07-Feb-2013 10:30 Appointment; Daniele Gil Encounter Diagnosis: Problem not documented On 19-Jan-2013 13:45 Appointment; Sherry Mckeon Encounter Diagnosis: Problem not documented On 11-Jan-2013 15:15 Appointment; Maritza Morris Encounter Diagnosis: Problem not documented On 22-Dec-2012 08:30 Appointment; Daniele Gil Encounter Diagnosis: Problem not documented On 20-Dec-2012 10:30 Appointment; Sherry Mckeon Encounter Diagnosis: Problem not documented On 20-Dec-2012 08:30 Appointment; Kadeem Jade Encounter Diagnosis: Problem not documented On 10-Dec-2012 10:00 Appointment; Daniele Gil Encounter Diagnosis: Problem not documented On 06-Dec-2012 11:15 Appointment; Daniele Gil Encounter Diagnosis: Problem not documented On 29-Nov-2012 14:00 Appointment; Kadeem Jade Encounter Diagnosis: Problem not documented On 24-Nov-2012 09:15 Appointment; Daniele Gil Encounter Diagnosis: Problem not documented On 19-Nov-2012 10:00 Appointment; Kadeem Jade Encounter Diagnosis: Problem not documented On 18-Nov-2012 09:30 Appointment; Daniele Gil Encounter Diagnosis: Problem not documented On 11-Nov-2012 13:15 Appointment; Sherry Mckeon Encounter Diagnosis: Problem not documented On 10-Nov-2012 09:00 Appointment; Daniele Gil Encounter Diagnosis: Problem not documented On 05-Nov-2012 10:00 Appointment; Bird Reyes Encounter Diagnosis: Problem not documented On 03-Nov-2012 13:30 Appointment; Paco Waller Encounter Diagnosis: Problem not documented On 28-Oct-2012 09:15 Appointment; Alon Cherry Encounter Diagnosis: Problem not documented On 11-Oct-2012 13:00 Appointment; Daniele Gil Encounter Diagnosis: Problem not documented On 08-Oct-2012 10:00 Appointment; Bird Reyes Encounter Diagnosis: Problem not documented On 10:30 Appointment; Daniele Gil Encounter Diagnosis: Problem not documented On 14:15 Appointment; Daniele Gil Encounter Diagnosis: Problem not documented On 11:00 Appointment; Sherry Mckeon Encounter Diagnosis: Problem not documented On 19-Jul-2012 11:30
--- OUTSIDE RECORDS SUMMARY | 2016-07-03 17:09 | XMS REPORT | Summary of Care ---
Author Author Mike Anderson, Sherry Shirley Unknown Address Unknown Phone Unavailable Care Team Providers Care Furniture Maker Name Role Phone Kadeem Jade M.D. Unavailable Unavailable Sherry Mckeon M.D. Unavailable Sherry Mckeon Unavailable Unavailable Unavailable Unavailable Functional Status Name Dates Details Functional status health issues are not documented Status: Name Dates Details Cognitive status health issues are not documented Status: Problems Name Dates Details Osteoarthritis (715.90, M19.90) Status: Active Vitamin D deficiency (268.9, E55.9) Status: Active Anemia (285.9, D64.9) Status: Active [...] Active WBC decreased (288.50, D72.819) Status: Active Duodenal ulcer (532.90, K26.9) Status: Active Actinic keratosis (702.0, L57.0) Status: Active History of squamous cell carcinoma of skin (V10.83, Z85.828) Status: Active H/O endovascular stent graft for abdominal aortic aneurysm (V43.4, Z95.828) Status: Active Acute frontal sinusitis (461.1, J01.10) Status: Active Vitreous floater, 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, 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) Status: Active Posterior capsular opacification, right eye (366.50, H26.491) Status: Active Tobacco abuse counseling (V65.42, Z71.6) Status: Active Flu vaccine need (V04.81, Z23) Status: Active Essential hypertension (401.9, I10) Status: Active Hypercholesterolemia (272.0, E78.00) Status: Active Osteoporosis (733.00, M81.0) Status: Active CAD S/P percutaneous coronary angioplasty (414.01, I25.10) Status: Active 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, K22.70) Status: Active Malignant neoplasm of female breast (174.9, C50.919) Status: Active Nausea (787.02, R11.0) Status: Active Medications Name Dates Details Lisinopril 20 MG Oral Tablet Take one tablet by mouth daily Quantity: 180 Mckeon M.D., Sherry * Start 13-Nov-2015 Active Claritin 10 MG Oral Capsule Take one tab daily as needed * Quantity: 30 Refills: 3 Mckeon M.D., Sherry * Start 11-Dec-2008 Active Metoprolol Tartrate 25 MG Oral Tablet TAKE ONE-HALF TABLET BY MOUTH TWO TIMES A DAY * Quantity: 90 Refills: 3 Jade M.D., T. K. * Start 18-Nov-2012 Active Aspirin EC 81 MG Oral Tablet Delayed Release TAKE 1 TABLET DAILY DIRECTED. * Quantity: 30 Refills: 0 Mckeon M.D., Sherry * Start 19-May-2013 Active Biotin 5000 MCG Oral Capsule TAKE 1 CAPSULE DAILY. * Refills: 0 Mckeon M.D., Sherry * Start 19-May-2013 Active Vitamin D 1000 UNIT CAPS Take one tab daily. * Refills: 0 Mckeon M.D., Sherry * Start 19-May-2013 Active Vitamin C 500 MG Oral Tablet TAKE 1 TABLET DAILY. * Refills: 0 Mckeon M.D., Sherry * Start 19-May-2013 Active Docusate Sodium 100 MG Oral Tablet TAKE 1 TABLET DAILY DIRECTED. * Refills: 0 Mckeon M.D., Sherry * Start 19-May-2013 Active Atorvastatin Calcium 20 MG Oral Tablet Take one tablet by mouth daily * Quantity: 180 Refills: 1 Mckeon M.D., Sherry * Start 13-Nov-2015 Active Zoledronic Acid 5 MG/100ML Intravenous Solution INFUSE 5MG INTRAVENOUSLY OVER 15 MINUTES DIRECTED. * Quantity: 1 Refills: 0 Mckeon M.D., Sherry * Start 22-Jun-2014 Active Pepcid 20 MG Oral Tablet TAKE 1 TABLET DAILY DIRECTED. * Refills: 0 Mckeon M.D., Sherry * Start 09-Nov-2014 Active GuaiFENesin ER 600 MG Oral Tablet Extended Release 12 Hour TAKE 1 TABLET TWICE DAILY NEEDED. * Refills: 0 Mckeon M.D., Sherry * Start 18-May-2015 Active Multi-Vitamin/Iron Oral Tablet * Refills: 0 Mckeon M.D., Sherry * Start 02-Jan-2016 Active Pantoprazole Sodium 40 MG Oral Tablet Delayed Release TAKE 1 TABLET DAILY. * Quantity: 30 Refills: 2 Mckeon M.D., Sherry * Start 01-May-2016 Active Allergies and Adverse Reactions Name Dates Details Morphine Derivatives (Allergy) Status: Active Penicillins (Allergy) Status: Active Past Medical History Name Dates Details History of Actinic keratosis (702.0, L57.0) Status: Resolved History of actinic keratosis (V13.3, Z87.2) Status: Resolved History of Basal Cell Carcinoma Of The Skin Of The Hand (173.61) Status: Resolved History of Combined form of senile cataract, left Status: Resolved History of diarrhea (V12.79, Z87.898) Status: Resolved History of diverticulitis of colon (V12.79, Z87.19) Status: Resolved History of Diverticulosis of colon (562.10, K57.30) Status: Resolved History of Encounter for screening colonoscopy (V76.51, Z12.11) Status: Resolved History of gastrointestinal hemorrhage (V12.79, Z87.19) Status: Resolved History of hyperopia (V12.49, Z86.69) Status: Resolved History of Microscopic hematuria (599.72, R31.29) Status: Resolved History of Multiparity (V61.5, Z64.1) [...] Tonsillectomy History of Breast Surgery Simple Mastectomy Completed: 19-Oct-2012 History of Axillary Lymphadenectomy Completed: 19-Oct-2012 History of Lymphatic Surgery Intraoperative Identification Of [place] Node Completed: 19-Oct-2012 History of Deep Axillary Lymph Node Biopsy Completed: 19-Oct-2012 History of Endovascular Repair Of Abdominal Aorta Aneurysm Completed: Dec-2012 History of Endovasc Repair Aort Aneurysm Infrarenal Modul Bifurc Prosth Completed: 04-Jan-2013 History of Placement Of Selective Arterial Catheter - Aortic Approach Completed: 04-Jan-2013 History of Open Femoral Artery Expos For Deliv Aortic Endovasc Prosth Completed: 04-Jan-2013 History of Central IV Line Child Age 5 Or Older Completed: 04-Jan-2013 History of Diagnostic Esophagogastroduodenoscopy History of Upr GI Endoscopy With Control Of Bleeding History of Central IV Child Age 5 Or Older W/ Tunneling & Subcutan Port Completed: 09-Feb-2013 History of Duodenoscopy With Biopsy History of Gastrotomy With Suture Of Bleeding Ulcer History of Vagotomy History of Cholecystectomy History of Tunneled Central IV Removal With Port Completed: 07-Jun-2014 History of Extracaps Cataract Extract With Prosthesis Insert Right Eye History of Extracaps Cataract Extract With Prosthesis Insert Left Eye History of Cataract Extraction CBC w/ Auto Diff 7150 Ordered: 01-May-2016 Comprehensive Metabolic Panel 1212 Ordered: 01-May-2016 THYROID STIM. HORMONE 3602 Ordered: 01-May-2016 Urinalysis, Reflex to Microscopic or Culture PRN 8005 Ordered: 01-May-2016 Immunization Name Dates Details Diphtheria-Tetanus Toxoids 6.7-5 LFU/0.5ML INJ on: 07-Jun-2006 Zoster (Zostavax) on: 04-Jun-2009 Fluzone INJ Lot #: [id number] on: 01-Jan-2010 Influenza on: 08-Nov-2011 Pneumo (Pneumovax) Lot #: [id number] on: 05-Jan-2012 Influenza Lot #: [id number] on: 20-Dec-2012 Fluzone INJ Lot #: [id number] on: 09-Jan-2014 Prevnar 13 Intramuscular Suspension Lot #: [id number] on: 22-Jun-2014 Fluzone Quadrivalent 0.5 ML Intramuscular Suspension Prefilled Syringe Lot #: [id number] on: 02-Jan-2016 Family History Name Dates Details Family history of Adopted Status: Active Name Dates Details Family history of Adopted Status: Active Name Dates Details Family history of Acute Myocardial Infarction (V17.3) Status: Active Family history of Essential Hypertension Status: Active Family history of Skin Cancer (V16.8) Status: Active Family history of Mother At Age ____ Status: Active Name Dates Details Family history of Heart Disease (V17.49) Status: Active Family history of CABG Status: Active Social History Name Dates Details - Status: Name Dates Details Current every day smoker Vital Signs Date Test Result Details 01-May-2016 10:33 BP Systolic 132 mm[Hg] Status: Comments: Location: ; Position: BP Diastolic 74 mm[Hg] Status: Comments: Location: ; Position: Heart Rate 57 /min Status: Comments: Location: ; Physical Findings 99 Status: Comments: O2 Saturation 01-May-2016 10:30 Temperature 97.7 f Status: Comments: Method: Weight 124 lb Status: Body Mass Index Calculated 20.96 kg/m2 Status: Body Surface Area Calculated 1.61 m2 Status: Results Date Description Value Details Results not documented Plan of Care Name Dates Details Planned Observations Planned Goals not documented Planned Encounters Appointment; Provider: Kadeem Jade M.D. On 20-Nov-2016 09:30 Appointment; Provider: Ja Palacios M.D. On 15-Oct-2016 09:00 Appointment; Provider: Jerod Paz M.D. On 02-Jul-2016 08:30 Appointment; Provider: Sherry Mckeon M.D. On 24-Jun-2016 08:30 Interventions Provided Medication Changes* Azithromycin 250 MG Oral Tablet - Completed * Pantoprazole Sodium 40 MG Oral Tablet Delayed Release - Start Labs/Procedures/Imaging* CBC w/ Auto Diff 7150; To be Done: 01 May 2016 * Comprehensive Metabolic Panel 1212; To be Done: 01 May 2016 * THYROID STIM. HORMONE 3602; To be Done: 01 May 2016 * Urinalysis, Reflex to Microscopic or Culture PRN [id number]; To be Done: 01 May 2016 Instructions Name Dates Details Instructions not documented Encounters Appointment; Sherry Mckeon M.D. Encounter Diagnosis: Problem not documented On 02-Jan-2016 09:00 Appointment; Kadeem Jade M.D. Encounter Diagnosis: Problem not documented On 19-Dec-2015 09:30 Appointment; Ja Palacios M.D. Encounter Diagnosis: Problem not documented On 13:00 Appointment; Sherry Mckeon M.D. Encounter Diagnosis: Problem not documented On 09:30 Appointment; Jerod Paz M.D. Encounter Diagnosis: Problem not documented On 29-Jun-2015 08:30 Appointment; Sherry Mckeon M.D. Encounter Diagnosis: Problem not documented On 18-May-2015 13:45 Appointment; Sherry Mckeon M.D. Encounter Diagnosis: Problem not documented On 26-Jan-2015 14:00 Appointment; Kadeem Jade M.D. Encounter Diagnosis: Problem not documented On 13-Dec-2014 09:30 Appointment; Sherry Mckeon M.D. Encounter Diagnosis: Problem not documented On 09-Nov-2014 09:30 Appointment; Daniele Gil M.D.|Manuela.Andrew.C.S.NICK Dominguez,JOHN, Encounter Diagnosis: Problem not documented On 13:00 Appointment; Ja Palacios M.D. Encounter Diagnosis: Problem not documented On 13:45 Appointment; Jerod Paz M.D. Encounter Diagnosis: Problem not documented On 18:15 Appointment; Jerod Paz M.D. Encounter Diagnosis: Problem not documented On 10:45 Appointment; Daniele Gil M.D.|F.Andrew.C.SKait|NICK Anderson,JOHN, Encounter Diagnosis: Problem not documented On 14:00 Appointment; Ja Palacios M.D. Encounter Diagnosis: Problem not documented On 09:15 Appointment; Daniele Gil M.D.|F.A.C.S.|NICK Anderson,JOHN, Encounter Diagnosis: Problem not documented On 10:30 Appointment; Ja Palacios M.D. Encounter Diagnosis: Problem not documented On 08:00 Appointment; Ja Palacios M.D. Encounter Diagnosis: Problem not documented On 09:00 Appointment; Ja Palacios M.D. Encounter Diagnosis: Problem not documented On 04-Aug-2014 10:45 Appointment; Ja Palacios M.D. Encounter Diagnosis: Problem not documented On 26-Jul-2014 08:30 Appointment; Ja Palacios M.D. Encounter Diagnosis: Problem not documented On 25-Jul-2014 12:00 Appointment; Ja Palacios M.D. Encounter Diagnosis: Problem not documented On 11-Jul-2014 09:00 Appointment; Ja Palacios M.D. Encounter Diagnosis: Problem not documented On 04-Jul-2014 15:00 Appointment; Jerod Paz M.D. Encounter Diagnosis: Problem not documented On 26-Jun-2014 18:00 Appointment; Marito Nickerson D.O. Encounter Diagnosis: Problem not documented On 23-Jun-2014 09:15 Appointment; Jerod Paz M.D. Encounter Diagnosis: Problem not documented On 23-Jun-2014 08:30 Appointment; Sherry Mckeon M.D. Encounter Diagnosis: Problem not documented On 22-Jun-2014 09:00 Appointment; Daniele Gil M.D.|GerryC.SKait|JOHN Anderson|Monica,JOHN, Encounter Diagnosis: Problem not documented On 21-Jun-2014 13:15 Appointment; Daniele Gil M.D.|FDedrick.C.S.|JOHN Anderson|Monica,JOHN, Encounter Diagnosis: Problem not documented On 07-Jun-2014 10:00"
--- OUTSIDE RECORDS SUMMARY | 2016-07-03 17:09 | XMS REPORT | Summary of Care ---
Author Author Mike Anderson, Sherry Shirley Unknown Address Unknown Phone Unavailable Care Team Providers Care Digital Printer Operator Name Role Phone Kadeem Jade M.D. 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) Status: Active Posterior capsular opacification, right eye (366.50, H26.491) Status: Active Flu vaccine need (V04.81, Z23) Status: Active Essential hypertension (401.9, I10) Status: Active Hypercholesterolemia (272.0, E78.00) Status: Active Osteoporosis (733.00, M81.0) Status: Active CAD S/P percutaneous coronary angioplasty (414.01, I25.10) Status: Active 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, K22.70) Status: Active Malignant neoplasm of female breast (174.9, C50.919) Status: Active Nausea (787.02, R11.0) Status: Active Duodenal ulcer (532.90, K26.9) Status: Active Fatigue (780.79, R53.83) Status: Active Tobacco abuse counseling (V65.42, Z71.6) Status: Active Hyponatremia (276.1, E87.1) Status: Active Medications Name Dates Details Lisinopril [...] DIRECTED. * Quantity: 30 Refills: 0 Mckeon M.D. Sherry * Start 19-May-2013 Active Biotin 5000 [...] Mckeon M.D., Sherry * Start 09-Nov-2014 Active Multi-Vitamin/Iron Oral Tablet * Refills: 0 Mckeon M.D., Sherry * Start 02-Jan-2016 Active Pantoprazole Sodium 40 MG Oral Tablet Delayed Release TAKE 1 TABLET DAILY. * Quantity: 30 Refills: 2 Mckeon M.D., Sherry * Start 01-May-2016 Active Lutein 20 MG Oral Capsule take 1 capsule daily * Refills: 0 * Start 23-Jun-2016 Active Fluticasone Propionate 50 MCG/ACT Nasal Suspension USE 1 TO 2 SPRAYS IN EACH NOSTRIL ONCE DAILY. * Quantity: 1 Refills: 1 Mckeon M.D., Sherry * Start 24-Jun-2016 Active 16 GM Bottle Clindamycin HCl - 150 MG Oral Capsule TAKE 4 CAPSULES BY MOUTH 1 HOUR PRIOR TO APPOINTMENT * Quantity: 4 Refills: 0 Mckeon M.D., Sherry * Start 24-Jun-2016 Active Allergies and Adverse Reactions Name Dates [...] History of Lymphatic Surgery Intraoperative Identification Of [place] Node Completed: 19-Oct-2012 History of Deep Axillary [...] Insert Left Eye History of Cataract Extraction CP Echo Ordered: 11-Jun-2016 DEXA Ordered: 24-Jun-2016 Immunization Name Dates Details Diphtheria-Tetanus Toxoids 6.7-5 LFU/0.5ML INJ on: 07-Jun-2006 Zoster (Zostavax) on: 04-Jun-2009 Fluzone INJ Lot #: [id number] on: 01-Jan-2010 Influenza on: 08-Nov-2011 Pneumo (Pneumovax) Lot #: [id number] on: 05-Jan-2012 Influenza Lot #: [id number] on: 20-Dec-2012 Fluzone INJ Lot #: [id number] on: 09-Jan-2014 Prevnar 13 Intramuscular Suspension Lot #: [id number] on: 22-Jun-2014 Fluzone Quadrivalent 0.5 ML Intramuscular Suspension Prefilled Syringe Lot #: [id number] on: 02-Jan-2016 Family History Name Dates Details [...] smoker Vital Signs Date Test Result Details 24-Jun-2016 09:06 Height 63.5 in Status: Body Mass Index Calculated 21.8 kg/m2 Status: Body Surface Area Calculated 1.59 m2 Status: 24-Jun-2016 08:57 BP Systolic 122 mm[Hg] Status: BP Diastolic 74 mm[Hg] Status: Heart Rate 62 /min Status: Physical Findings 20 Status: Comments: Respiration Weight 125 lb Status: Physical Findings 92 Status: Comments: O2 Saturation Body Mass Index Calculated 21.12 kg/m2 Status: Body Surface Area Calculated 1.61 m2 Status: Results Date Description Value Details 11-Jun-2016 17:50 CP Echo Y Linked PDF Report Available for Review by Clicking ImageLink Button 24-Jun-2016 08:53 Urinalysis, Reflex to Microscopic or Culture PRN [id number] Comments: Fastin hours pH 7.0 Range: 5.0-7.5 SP GRAVITY 1.015 Range: 1.010-1.030 APPEARANCE CLEAR Range: Clear COLOR DKYELLOW (Abnormal) Range: Straw-Yellow PROTEIN NEGATIVE mg/dL Range: Negative-Trace GLUCOSE NEGATIVE mg/dL Range: Negative KETONE NEGATIVE mg/dL Range: Negative BILIRUB NEGATIVE Range: Negative BLOOD TRACE (Abnormal) Range: Negative UROBIL 2.0 EU/dL (Abnormal) Range: 0.2-1.0 NITRITE NEGATIVE Range: Negative LEUK TRACE (Abnormal) Range: Negative 09:02 Urine Microscopic UMIC Comments: Fastin hours WBC 3-5 /HPF Range: 0-5 RBC 0-2 /HPF Range: 0-2 HYAL CAST 3-5 /LPF (Abnormal) Range: 0-2 MUCUS 2+ /LPF Range: Negative-2+ BACTERIA Trace /HPF Range: Negative-Trace EPITH 3-5 /HPF Range: 0-10 09:12 LIPID PROFILE 1184 Comments: Fastin hours CHOLESTEROL 126 mg/dL Range: <200 TRIGLYCERIDES 39 mg/dL Range: 30-200 HDL Cholesterol 52 mg/dL Range: >39 NON HDL CHOLESTEROL 74 CARDIAC RSK FACTOR 2.4 units (Below low threshold) Range: 4.4-5.0 LDL - CALCULATED 66 mg/dL Range: 0-130 09:23 THYROID STIM. HORMONE 3602 Comments: Fastin hours THYROID STIM. HORMONE 1.259 uIU/mL Range: 0.550-4.780 Comments: No established reference ranges for infants and children <2 years of age----- Plan of Care Name Dates Details Planned Observations DEXA On Intent Planned Goals not documented Planned Encounters Appointment; Provider: Kadeem Jade M.D. On 20-Nov-2016 09:30 Appointment; Provider: Ja Palacios M.D. On 15-Oct-2016 09:00 Appointment; Provider: Sherry Mckeon M.D. On 09:00 Appointment; Provider: Mayco Patel M.D. On 09:45 Appointment; Provider: Jerod Paz M.D. On 02-Jul-2016 08:30 Interventions Provided Medication Changes* Clindamycin HCl - 150 MG Oral Capsule - Start * Fluticasone Propionate 50 MCG/ACT Nasal Suspension - Start Instructions Name Dates Details Instructions not documented Encounters Appointment; Sherry Mckeon M.D. Encounter Diagnosis: Problem not documented On 01-May-2016 10:15 Appointment; Sherry Mckeon M.D. Encounter Diagnosis: Problem [...] documented On 09-Nov-2014 09:30 Appointment; Daniele Gil M.D.|F.Andrew.C.SKait|Monica,NICK,JOHN, Encounter Diagnosis: Problem not documented On 13:00 Appointment; Ja Palacios M.D. Encounter Diagnosis: Problem not documented On 13:45 Appointment; Jerod Paz M.D. Encounter Diagnosis: Problem not documented On 18:15 Appointment; Jerod Paz M.D. Encounter Diagnosis: Problem not documented On 10:45 Appointment; Daniele Gil M.D.|F.Andrew.C.SKait|JOHN Anderson|Monica,JOHN, Encounter Diagnosis: Problem not documented On 14:00 Appointment; Ja Palacios M.D. Encounter Diagnosis: Problem not documented On 09:15 Appointment; Daniele Gil M.D.|F.A.C.SKait|Monica,NICK,JOHN, Encounter Diagnosis: Problem not documented On 10:30 [...] Encounter Diagnosis: Problem not documented On 26-Jun-2014 18:00"
--- OUTSIDE RECORDS SUMMARY | 2016-07-03 17:09 | XMS REPORT | Continuity of care Document ---
Author Author GENERATED, SYSTEM Organization Unknown Address Unknown Phone Unavailable Purpose Hospital Course Allergies, Adverse Reactions, Alerts * Penicillins causes "voice changed". * morphine causes Nausea. * Latex Allergy has not been assessed. * IV Contrast Allergy has not been assessed. * No Known Food Allergies. Problems * Abdominal Aortic Aneurysm Status:Active. * Anemia Status:Active. * Coronary Arteriosclerosis Status:Active. * Excision of Breast Tissue Status:Active. * Repair of Aneurysm of Abdominal Aorta Status:Active. Procedures No relevant procedures performed. Medication Medication reconciliation has not been performed. Results
--- OUTSIDE RECORDS SUMMARY | 2016-07-03 17:09 | XMS REPORT | Summary of Care ---
Author Author Mike Anderson, Sherry Shirley Unknown Address Unknown Phone Unavailable Care Team Providers Care Automatic Teller Machine Servicer Name Role Phone Kadeem Jade M.D. Unavailable [...] Start 09-Nov-2014 Active GuaiFENesin ER 600 MG TB12 TAKE 1 TABLET TWICE DAILY NEEDED. * [...] * Refills: 0 * Start 23-Jun-2016 Active Allergies and Adverse Reactions Name Dates [...] History of Lymphatic Surgery Intraoperative Identification Of [place] Node Completed: 19-Oct-2012 History of Deep Axillary [...] of Cataract Extraction CP Echo Ordered: 11-Jun-2016 LIPID PROFILE 1184 Ordered: 29-May-2016 THYROID STIM. HORMONE 3602 Ordered: 29-May-2016 Urinalysis, Reflex to Microscopic or Culture PRN [id number] Ordered: 29-May-2016 Immunization Name Dates Details Diphtheria-Tetanus Toxoids 6.7-5 LFU/0.5ML INJ on: 07-Jun-2006 Zoster (Zostavax) on: 04-Jun-2009 Fluzone INJ Lot #: [id number] on: 01-Jan-2010 Influenza on: 08-Nov-2011 Pneumo (Pneumovax) Lot #: [id number] on: 05-Jan-2012 Influenza Lot #: [id number] on: 20-Dec-2012 Fluzone INJ Lot #: [id number] on: 09-Jan-2014 Prevnar 13 Intramuscular Suspension Lot #: [id number] on: 22-Jun-2014 Fluzone Quadrivalent 0.5 ML Intramuscular Suspension Prefilled Syringe Lot #: [id number] on: 02-Jan-2016 Family History Name Dates Details [...] smoker Vital Signs Date Test Result Details No Known Vitals to report Results Date Description Value Details 11-Jun-2016 17:50 CP Echo Y Linked PDF Report Available for Review by Clicking ImageLink Button Plan of Care Name Dates Details Planned Observations Planned Goals not documented Planned Encounters Appointment; Provider: Kadeem Jade M.D. On 20-Nov-2016 09:30 Appointment; Provider: Ja Palacios M.D. On 15-Oct-2016 09:00 Appointment; Provider: Jerod Paz M.D. On 02-Jul-2016 08:30 Appointment; Provider: Sherry Mckeon M.D. On 24-Jun-2016 08:30 Interventions Provided Labs/Procedures/Imaging* LIPID PROFILE 1184; To be Done: 24 Jun 2016 * THYROID STIM. HORMONE 3602; To be Done: 24 Jun 2016 * Urinalysis, Reflex to Microscopic or Culture PRN [id number]; To be Done: 24 Jun 2016 Instructions Name Dates Details Instructions not [...] documented On 09-Nov-2014 09:30 Appointment; Daniele Gil M.D.|F.Andrew.C.S.|Monica,NICK,JOHN, Encounter Diagnosis: Problem not documented On 13:00 Appointment; Ja Palacios M.D. Encounter Diagnosis: Problem not documented On 13:45 Appointment; Jerod Paz M.D. Encounter Diagnosis: Problem not documented On 18:15 Appointment; Jerod Paz M.D. Encounter Diagnosis: Problem not documented On 10:45 Appointment; Daniele Gil M.D.|F.Andrew.C.S.|Monica,JOHN|Monica,JOHN, Encounter Diagnosis: Problem not documented On 14:00 Appointment; Ja Palacios M.D. Encounter Diagnosis: Problem not documented On 09:15 Appointment; Daniele Gil M.D.|F.A.C.S.|Monica,JOHN|Monica,JOHN, Encounter Diagnosis: Problem not documented On 10:30 [...] Encounter Diagnosis: Problem not documented On 23-Jun-2014 08:30"
--- OUTSIDE RECORDS SUMMARY | 2016-07-03 17:09 | XMS REPORT | Summary of Care ---
Author Author Sherry Mckeon M.D. Unknown Address [address], [place] [id number] Phone Unavailable Care Team Providers Care Fuels Engineer Name Role Phone Kadeem Jade M.D. 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: Active Pre-operative exam (V72.84, Z01.818) Status: Active Cough (786.2, R05) Status: Active Aneurysm of abdominal aorta (441.4, I71.4) Status: Active Abnormal CT of the abdomen (793.6, R93.5) Status: Active Lymphadenopathy (785.6, R59.1) Status: Active Actinic keratosis (702.0, L57.0) Status: Active Pseudophakia of left eye (V43.1, Z96.1) Status: Active Pseudophakia of right eye (V43.1, Z96.1) Status: Active Hypertension (401.9, I10) Status: Active Hypercholesterolemia (272.0, E78.0) Status: Active CAD S/P percutaneous coronary angioplasty (414.01, I25.10) Status: Active Malignant neoplasm of female breast (174.9, C50.919) Status: Active Diarrhea (787.91, R19.7) Status: Active WBC decreased (288.50, D72.819) Status: Active Medications Name Dates Details Lisinopril [...] TAKE 1 TABLET DAILY. * Refills: 0 MckeonSherryD.* Started 19-May-2013 ActiveDocusate Sodium 100 MG Oral Tablet TAKE 1 TABLET DAILY DIRECTED. * Refills: 0 Sherry Mckeon M.D.* Started 19-May-2013 ActiveAtorvastatin Calcium 20 MG Oral Tablet TAKE 1 TABLET DAILY. * Quantity: 180 Refills: 1 Sherry Mckeon M.D.* Started 09-Jan-2014 ActiveZoledronic Acid 5 MG/100ML Intravenous Solution INFUSE 5MG INTRAVENOUSLY OVER 15 MINUTES DIRECTED. * Quantity: 1 Refills: 0 Sherry Mckeon M.D.* Started 22-Jun-2014 ActiveVigamox 0.5 % Ophthalmic Solution INSTILL 1 DROP INTO AFFECTED EYE(S) 3 TIMES DAILY. * Quantity: 1 Refills: 1 Ja Palacios M.D.* Started 11-Jul-2014 Active3 ML Bottle Cipro 500 MG Oral Tablet one tab bid * Quantity: 14 Refills: 0 Sherry Mckeon M.D.* Started 09-Nov-2014 ActiveCompazine 10 MG Oral Tablet TAKE 1 TABLET 3 TIMES DAILY. * Refills: 0 MckeonSherry M.D.* Started 09-Nov-2014 ActivePepcid 20 MG Oral Tablet TAKE 1 TABLET DAILY DIRECTED. * Refills: 0 Sherry Mckeon M.D.* Started 09-Nov-2014 ActiveChantix Starting Month Chito 0.5 MG X 11 & 1 MG X 42 Oral Tablet TAKE DIRECTED PER PACKAGE INSTRUCTIONS. * Quantity: 53 Refills: 0 MckeonSherry M.D.* Started 09-Nov-2014 Active Allergies and Adverse Reactions Name Dates Details Morphine Derivatives Status: Active Penicillins Status: Active Past Medical History Name Dates Details History of Actinic keratosis (702.0, L57.0) Status: Resolved History of Basal Cell Carcinoma Of The Skin Of The Hand (173.61) Status: Resolved History of Combined form of senile cataract, left (366.19, H25.812) Status: Resolved History of diverticulitis of colon [...] History of Lymphatic Surgery Intraoperative Identification Of [place] Node Completed:19-Oct-2012 History of Deep Axillary Lymph [...] Cataract Extract With Prosthesis Insert Left Eye CP Echo Ordered: CBC w/ Auto Diff 7150 Ordered:16-Nov-2014 Immunization Name Dates Details Diphtheria-Tetanus Toxoids 6.7-5 LFU/0.5ML Intramuscular Injectable Administered on:07-Jun-2006 Zoster (Zostavax) Administered on:04-Jun-2009 Fluzone Intramuscular Injectable Lot #: [id number] Administered on:01-Jan-2010 Influenza Administered on:08-Nov-2011 Pneumo (Pneumovax) Lot #: [id number] Administered on:05-Jan-2012 Influenza Lot #: [id number] Administered on:20-Dec-2012 Fluzone Intramuscular Injectable Lot #: [id number] Administered on:09-Jan-2014 Prevnar 13 Intramuscular Suspension Lot #: [id number] Administered on:22-Jun-2014 Family History natural daughter* Name [...] smoker Vital Signs Date Test Result Details 09-Nov-2014 09:44 BP Systolic 130 mm[Hg] Status: BP Diastolic 72 mm[Hg] Status: Heart Rate 77 /min Status: Weight 140 lb Status: O2 SAT 92 % Status: Body Mass Index Calculated 24.41 kg/m2 Status: Body Surface Area Calculated 1.67 m2 Status: Results Date Description Value Details Results not documented Plan of Care Planned Observations* Name Dates Details Planned Goals not documented Goal Planned Encounters* Appointment; Provider: Ja Palacios On 13:00 * Appointment; Provider: Jerod Paz On 29-Jun-2015 08:30 * Appointment; Provider: Kadeem Jade On 13-Dec-2014 09:30 * Appointment; Provider: Sherry Mckeon On 12-Dec-2014 09:00 * Appointment; Provider: Schedule Radiology On 09:30 [...] Problem not documented On 18-Apr-2013 13:15 Appointment; Talon, August Encounter Diagnosis: Problem not documented On 06-Apr-2013 10:00 Appointment; Talon, August Encounter Diagnosis: Problem not documented On 04-Apr-2013 [...]
--- OUTSIDE RECORDS SUMMARY | 2016-07-03 17:10 | XMS REPORT | Summary of Care ---
Author Author Kadeem Jade M.D. Organization Unknown Address [address] [place], [place] [id number] Phone Unavailable Care Team Providers Care Supervisor Payroll Name Role Phone Kadeem Jade M.D. Unavailable [...] percutaneous coronary angioplasty (414.01, I25.10) Status: Active Medications Name Dates Details Lisinopril [...] TABLET TWICE DAILY NEEDED. * Refills: 0 MckeonJeanaSherry M.D.* Started 18-May-2015 Active Allergies and Adverse [...] History of Lymphatic Surgery Intraoperative Identification Of [place] Node Completed:19-Oct-2012 History of Deep Axillary Lymph [...] Eye History of Cataract Extraction CP Echo Ordered:21-Jun-2015 CBC w/ Auto Diff 7150 Ordered:21-May-2015 Comprehensive Metabolic Panel 1212 Ordered:21-May-2015 LIPID PROFILE 1184 Ordered:21-May-2015 THYROID STIM. HORMONE 3602 Ordered:21-May-2015 Urinalysis, Reflex to Microscopic or Culture PRN 8005 Ordered:21-May-2015 Immunization Name Dates Details Diphtheria-Tetanus Toxoids 6.7-5 LFU/0.5ML Intramuscular Injectable Administered on:07-Jun-2006 Zoster (Zostavax) Administered on:04-Jun-2009 Fluzone Intramuscular Injectable Lot #: [id number] Administered on:01-Jan-2010 Influenza Administered on:08-Nov-2011 Pneumo (Pneumovax) Lot #: [id number] Administered on:05-Jan-2012 Influenza Lot #: [id number] Administered on:20-Dec-2012 Fluzone Intramuscular Injectable Lot #: [id number] Administered on:09-Jan-2014 Prevnar 13 Intramuscular Suspension Lot #: [id number] Administered on:22-Jun-2014 Family History natural daughter* Name [...] to report Results Date Description Value Details 29-May-2015 08:34 CBC w/ Auto Diff 7150 WBC 4.4 K/uL (Below low threshold) Range: 4.5-11.0 RBC 3.51 mil/uL (Below low threshold) Range: 3.60-5.00 HGB 12.2 g/dL (Better) Range: 12.0-16.0 HCT 37.9 % (Better) Range: 36.0-48.0 MCV 107.9 fL (Above high threshold) Range: 80.0-99.0 MCH 34.8 pg (Above high threshold) Range: 27.3-32.5 MCHC 32.3 % (Better) Range: 32.0-36.0 RDW 16.0 % (Above high threshold) Range: 11.6-14.8 PLATELETS 246 K/uL (Better) Range: 150-400 MPV 8.8 fL (Better) Range: 6.0-11.0 %NEUTRO 64.1 % (Better) Range: 37.0-80.0 %LYMPHS 18.1 % (Better) Range: 13.0-50.0 %MONO 10.1 % (Better) Range: 0.0-12.0 %EOS 4.5 % (Better) Range: 0.0-7.0 %BASO 1.2 % (Better) Range: 0.0-2.5 %ANIBAL 2.0 % (Better) Range: 0.0-5.0 NEUTRO 2.8 K/uL (Better) Range: 2.0-6.9 LYMPHS 0.8 K/uL (Better) Range: 0.6-3.4 MONOS 0.4 K/uL (Better) Range: 0.0-0.9 EOS 0.2 K/uL (Better) Range: 0.0-0.7 BASO 0.1 K/uL (Better) Range: 0.0-0.2 09:03 Comprehensive Metabolic Panel 1212 SODIUM 127 mmol/L (Below low threshold) Range: 133-144 POTASSIUM 4.2 mmol/L (Better) Range: 3.5-5.1 CHLORIDE 92 mmol/L (Below low threshold) Range: 98-110 CARBON DIOXIDE 27.7 mmol/L (Better) Range: 23.0-33.0 ANION GAP 7 mmol/L (Better) Range: 6-16 BUN 8 mg/dL (Better) Range: 7-18 CREATININE, SERUM 0.68 mg/dL (Better) Range: 0.55-1.02 Comments: Please note new reference ranges effective 2014.----- BUN:CREATININE RATIO 12 (Better) EST GFR, >60 ml/min (Better) Range: >60 EST GFR, NON-AFR ALGERIAN >60 ml/min (Better) Range: >60 Comments: EST GFR is reported in ml/min per 1.73 m2 of body surface area. For -Belizean, please multiple result by 1.2.----- GLUCOSE 92 mg/dL (Better) Range: 70-100 ALK PHOSPHATASE 93 U/L (Better) Range: 46-116 TOTAL BILIRUBIN 0.60 mg/dL (Better) Range: 0.20-1.00 AST 16 U/L (Better) Range: 8-35 ALT 17 U/L (Better) Range: 14-59 Comments: Please note new reference ranges. Effective 05/18/2014.----- ALBUMIN 3.0 g/dL (Below low threshold) Range: 3.4-5.0 TOTAL PROTEIN 6.6 g/dL (Better) Range: 6.4-8.2 A/G RATIO 0.8 units (Below low threshold) Range: 1.0-1.8 CALCIUM 8.8 mg/dL (Better) Range: 8.5-10.1 09:03 MAGNESIUM 1260 MAGNESIUM 1.7 mg/dL (Below low threshold) Range: 1.8-2.4 09:03 LDH 1140 LDH 111 U/L (Better) Range: 81-234 21-Jun-2015 12:29 CP Echo Y Linked PDF Report Available for Review by Clicking ImageLink Button ( Better) Plan of Care Planned Observations* Name Dates Details Planned Goals not documented Goal Planned Encounters* Appointment; Provider: Kadeem Jade On 19-Dec-2015 09:30 * Appointment; Provider: Ja Palacios On 13:00 * Appointment; Provider: Sherry Mckeon On 09:30 * Appointment; Provider: Jerod Paz On 29-Jun-2015 08:30 * Appointment; Provider: Schedule Radiology On 08-May-2015 [...]
--- OUTSIDE RECORDS SUMMARY | 2016-07-03 17:10 | XMS REPORT ---
Author Author GENERATED, SYSTEM Organization Unknown Address Unknown Phone Unavailable Care Team Providers Care Industrial Sales Representative Name Role Phone MD RUSSEL, GARRETT PP [phone] Reason For Visit Chief Complaint D70.1, Z92.21 Social History Functional Status Vital Signs Results Problems Encounter Diagnosis No relevant problems [...] been assessed. * No Known Food Allergies. Medication Medication reconciliation has not been performed.
--- OUTSIDE RECORDS SUMMARY | 2016-07-03 17:10 | XMS REPORT ---
Author Author GENERATED, SYSTEM Organization Unknown Address Unknown Phone Unavailable Care Team Providers Care Plasterer Stucco Name Role Phone MD RUSSEL, GARRETT PP [phone] Reason For Visit Reason for Visit from 07/11/2014 10:30 AM:* Pt Stated Reason for Adm : Reclast infusion Chief Complaint OSTEOPOROSIS 733.00 Social History Functional Status Functional Status from 07/11/2014 10:30 AM:* LOC : Alert * Oriented To : Person,Place,Time,Event Vital Signs Hospital Vital Signs from 07/11/2014 10:35 AM:* Height : 5/4 ft,in * Temperature : 98.1 F * Pulse : 51 * Respirations : 18 * BP : 150/66 Results Problems Encounter Diagnosis No relevant problems [...] exist. Plan of Care Procedures * Completed , on 04/06/2013 12:00 AM [...]
--- OUTSIDE RECORDS SUMMARY | 2016-07-03 17:10 | XMS REPORT | Summary of Care ---
Author Author Sherry Mckeon M.D. Unknown Address [address] [place], [place] [id number] Phone Unavailable Care Team Providers Care Cage Operator Name Role Phone Kadeem Jade M.D. [...] day Quantity: 180 MckeonSherry M.D.* Started 29-Dec-2007 ActiveMetoprolol Tartrate 25 MG Oral Tablet TAKE [...] * Refills: 0 MckeonSherry M.D.* Started 19-May-2013 ActiveAcidophilus Lactobacillus 10 BU/GM Powder USE DIRECTED. * Refills: 0 MckeonSherry M.D.* Started [...] 12 Refills: 0 MckeonSherry M.D.* Started 09-Jan-2014 ActiveClaritin 10 MG Oral Capsule Take one tab daily as needed * Quantity: 30 Refills: 3 Sherry Mckeon M.D.* Started 11-Dec-2008 Active Allergies and Adverse Reactions Name Dates [...] History of Lymphatic Surgery Intraoperative Identification Of [place] Node Completed:19-Oct-2012 History of Deep Axillary Lymph [...] Ulcer History of Vagotomy History of Cholecystectomy Comprehensive Metabolic Panel 1212 Ordered:29-May-2014 LIPID PROFILE 1184 Ordered:29-May-2014 CBC w/ Auto Diff 7150 Ordered:29-May-2014 Urinalysis, Reflex to Microscopic or Culture PRN 8005 Ordered:29-May-2014 THYROID STIM. HORMONE 3602 Ordered:29-May-2014 Immunization Name Dates Details Diphtheria-Tetanus Toxoids 6.7-5 LFU/0.5ML Intramuscular Injectable Administered on:07-Jun-2006 Zoster (Zostavax) Administered on:04-Jun-2009 Fluzone Intramuscular Injectable Lot #: [id number] Administered on:01-Jan-2010 Influenza Administered on:08-Nov-2011 Pneumo (Pneumovax) Lot #: [id number] Administered on:05-Jan-2012 Influenza Lot #: [id number] Administered on:20-Dec-2012 Fluzone Intramuscular Injectable Lot #: [id number] Administered on:09-Jan-2014 Family History natural daughter* Name Dates Details [...] to report Results Date Description Value Details Results not documented Plan of Care Planned Observations* Name Dates Details Planned Goals not documented Goal Planned Encounters* Appointment; Provider: Kadeem Jade On 13-Dec-2014 09:30 * Appointment; Provider: Marito Nickerson On 23-Jun-2014 09:15 * Appointment; Provider: Jerod Paz On 23-Jun-2014 08:30 * Appointment; Provider: Sherry Mckeon On 22-Jun-2014 09:00 * Appointment; Provider: Daniele Gil On 21-Jun-2014 13:15 * Appointment; Provider: Daniele Gil On 08:00 [...] Instructions * Instructions not documented Encounters Appointment; Daniele Gil Encounter Diagnosis: Problem not [...] not documented On 18-Apr-2013 13:15 Appointment; Talon, May Encounter Diagnosis: Problem not documented On 06-Apr-2013 [...]
--- OUTSIDE RECORDS SUMMARY | 2016-07-03 17:10 | XMS REPORT | Summary of Care ---
Author Author Kadeem Jade M.D. Organization Unknown Address [address] [place], [place] [id number] Phone Unavailable Care Team Providers Care Hat Mender Name Role Phone Kadeem Jade M.D. Unavailable Unavailable Sherry Mckeon M.D. 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, K22.70) Status: Active Anemia (285.9, D64.9) Status: Active Chronic constipation (564.00, K59.09) Status: Active History of proctitis (V12.79, Z87.19) Status: Active Macrocytosis (289.89, D75.89) Status: Active Nicotine dependence (305.1, F17.200) Status: Active 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, 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) Status: Active Pseudophakia of right eye (V43.1, Z96.1) Status: Active Pseudophakia of left eye (V43.1, Z96.1) Status: Active WBC decreased (288.50, D72.819) Status: Active Duodenal ulcer (532.90, K26.9) Status: Active Actinic keratosis (702.0, L57.0) Status: Active History of squamous cell carcinoma of skin (V10.83, Z85.828) Status: Active Osteoporosis (733.00, M81.0) Status: Active Malignant neoplasm of female breast (174.9, C50.919) Status: Active H/O endovascular stent graft for abdominal aortic aneurysm (V43.4, Z95.828) Status: Active Acute frontal sinusitis (461.1, J01.10) Status: Active Vitreous floater, 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, H43.393) Status: Active Posterior capsular opacification, right eye (366.50, H26.491) Status: Active CAD S/P percutaneous coronary angioplasty (414.01, I25.10) Status: Active Essential hypertension (401.9, I10) Status: Active Hypercholesterolemia (272.0, E78.00) Status: Active Tobacco abuse counseling (V65.42, Z71.6) Status: Active Medications Name Dates Details Lisinopril [...] Mckeon M.D., Sherry * Start 18-May-2015 Active Allergies and Adverse Reactions Name [...] History of Lymphatic Surgery Intraoperative Identification Of [place] Node Completed: 19-Oct-2012 History of Deep Axillary [...] History of Cataract Extraction CP Echo Ordered: 19-Dec-2015 Immunization Name Dates Details Diphtheria-Tetanus Toxoids 6.7-5 LFU/0.5ML INJ on: 07-Jun-2006 Zoster (Zostavax) on: 04-Jun-2009 Fluzone INJ Lot #: [id number] on: 01-Jan-2010 Influenza on: 08-Nov-2011 Pneumo (Pneumovax) Lot #: [id number] on: 05-Jan-2012 Influenza Lot #: [id number] on: 20-Dec-2012 Fluzone INJ Lot #: [id number] on: 09-Jan-2014 Prevnar 13 Intramuscular Suspension Lot #: [id number] on: 22-Jun-2014 Family History Name Dates Details Family history [...] smoker Vital Signs Date Test Result Details 19-Dec-2015 09:37 BP Systolic 130 mm[Hg] Status: Comments: Location: ; Position: BP Diastolic 72 mm[Hg] Status: Comments: Location: ; Position: 19-Dec-2015 09:16 BP Systolic 142 mm[Hg] Status: Comments: Location: LUE; Position: Sitting BP Diastolic 76 mm[Hg] Status: Comments: Location: LUE; Position: Sitting Heart Rate 55 /min Status: Weight 126 lb Status: Physical Findings 99 Status: Comments: O2 Saturation Body Mass Index Calculated 21.29 kg/m2 Status: Body Surface Area Calculated 1.62 m2 Status: Results Date Description Value Details 19-Dec-2015 09:08 ECG/ EKG (Specialists) Electro CardioGram 09:13 CP Echo Y Linked PDF Report Available for Review by Clicking ImageLink Button Plan of Care Name Dates Details Planned Observations Planned Goals not documented Planned Encounters Appointment; Provider: Kadeem Jade M.D. On 20-Nov-2016 09:30 Appointment; Provider: Ja Palacios M.D. On 15-Oct-2016 09:00 Appointment; Provider: Jerod Paz M.D. On 02-Jul-2016 08:30 Appointment; Provider: Sherry Mckeon M.D. On 02-Jan-2016 09:00 Appointment; Provider: Schedule Radiology On 28-Dec-2015 09:00 Interventions Provided Medication Changes* Azithromycin 250 MG Oral Tablet - Completed Labs/Procedures/Imaging* ECG/ EKG (Specialists); Done: Dec 19 2015 9:08AM Instructions Name Dates Details Instructions not documented Encounters Appointment; Ja Palacios M.D. Encounter Diagnosis: Problem [...] documented On 09-Nov-2014 09:30 Appointment; Daniele Gil M.D.|[facility].|Monica,JOHN|Monica,JOHN, Encounter Diagnosis: Problem not documented On 13:00 Appointment; Ja Palacios M.D. Encounter Diagnosis: Problem not documented On 13:45 Appointment; Jerod Paz M.D. Encounter Diagnosis: Problem not documented On 18:15 Appointment; Jerod Paz M.D. Encounter Diagnosis: Problem not documented On 10:45 Appointment; Daniele Gil M.D.|[facility].Andrew.[facility].SKait|Monica,JOHN|Monica,JOHN, Encounter Diagnosis: Problem not documented On 14:00 Appointment; Ja Palacios M.D. Encounter Diagnosis: Problem not documented On 09:15 Appointment; Daniele Gil M.D.|[facility].A.C.[facility].|Monica,JONH|Monica,JOHN, Encounter Diagnosis: Problem not documented On 10:30 [...] documented On 22-Jun-2014 09:00 Appointment; Daniele Gil M.D.|[facility].|Monica,JOHN|Monica,FACS, Encounter Diagnosis: Problem not documented On 21-Jun-2014 13:15 Appointment; Daniele Gil M.D.|F.Andrew.C.S.|JOHN Anderson|Monica,JOHN, Encounter Diagnosis: Problem not documented On 07-Jun-2014 10:00 Appointment; Sherry Mckeon M.D. Encounter Diagnosis: Problem not documented On 09-Jan-2014 15:15"
--- OUTSIDE RECORDS SUMMARY | 2016-07-03 17:10 | XMS REPORT | Summary of Care ---
Author Author Sherry Mckeon M.D. Unknown Address [address] [place], [place] [id number] Phone Unavailable Care Team Providers Care Show Worker Name Role Phone Kadeem Jade M.D. Unavailable [...] Refills: 3 Kadeem Jade M.D.* Started 18-Nov-2012 ActiveDocusate Sodium 100 MG Oral Tablet TAKE 1 TABLET DAILY DIRECTED. * Refills: 0 MckeonSherry M.D.* Started 19-May-2013 ActiveAtorvastatin Calcium 20 MG Oral Tablet TAKE 1 TABLET DAILY. * Quantity: 180 Refills: 1 MckeonSherry M.D.* Started 09-Jan-2014 ActiveZoledronic Acid 5 MG/100ML Intravenous Solution INFUSE 5MG INTRAVENOUSLY OVER 15 MINUTES DIRECTED. * Quantity: 1 Refills: 0 MckeonSherry M.D.* Started 22-Jun-2014 ActiveVitamin C 500 MG Oral Tablet TAKE 1 TABLET DAILY. * Refills: 0 MckeonSherry M.D.* Started 19-May-2013 ActiveVitamin D 1000 UNIT CAPS Take one tab daily. * Refills: 0 MckeonSherry M.D.* Started 19-May-2013 ActiveBiotin 5000 MCG Oral Capsule TAKE 1 CAPSULE DAILY. * Refills: 0 MckeonSherry M.D.* Started 19-May-2013 ActiveAspirin EC 81 MG Oral Tablet Delayed Release TAKE 1 TABLET DAILY DIRECTED. * Quantity: 30 Refills: 0 MckeonSherry M.D.* Started 19-May-2013 ActiveGuaiFENesin ER 600 MG Oral Tablet Extended Release 12 Hour TAKE 1 TABLET TWICE DAILY NEEDED. * Refills: 0 MckeonSherry M.D.* Started 18-May-2015 ActivePepcid 20 MG Oral Tablet TAKE 1 TABLET DAILY DIRECTED. * Refills: 0 MckeonSherry M.D.* Started 09-Nov-2014 Active [...] History of Lymphatic Surgery Intraoperative Identification Of [place] Node Completed:19-Oct-2012 History of Deep Axillary Lymph [...] History of Cataract Extraction CP Echo Ordered:21-Jun-2015 Immunization Name Dates Details Diphtheria-Tetanus Toxoids 6.7-5 LFU/0.5ML Intramuscular Injectable Administered on:07-Jun-2006 Zoster (Zostavax) Administered on:04-Jun-2009 Fluzone Intramuscular Injectable Lot #: [id number] Administered on:01-Jan-2010 Influenza Administered on:08-Nov-2011 Pneumo (Pneumovax) Lot #: [id number] Administered on:05-Jan-2012 Influenza Lot #: [id number] Administered on:20-Dec-2012 Fluzone Intramuscular Injectable Lot #: [id number] Administered on:09-Jan-2014 Prevnar 13 Intramuscular Suspension Lot #: [id number] Administered on:22-Jun-2014 Family History natural daughter* Name [...] Paz On 02-Jul-2016 08:30 * Appointment; Provider: Kadeem Jade On 19-Dec-2015 09:30 * Appointment; Provider: Ja Palacios On 13:00 * Appointment; Provider: Sherry Mckeon On 09:30 * Appointment; Provider: Schedule Radiology On 08-May-2015 [...] Instructions * Instructions not documented Encounters Appointment; Jerod Paz Encounter Diagnosis: Problem not documented On 29-Jun-2015 08:30 Appointment; Sherry Mckeon Encounter Diagnosis: Problem not documented On 18-May-2015 13:45 Appointment; Sherry Mckeon Encounter Diagnosis: Problem not documented On 26-Jan-2015 14:00 Appointment; Kadeem Jade Encounter Diagnosis: Problem not documented On 13-Dec-2014 09:30 Appointment; Sherry Mcekon Encounter Diagnosis: Problem not documented On 09-Nov-2014 [...]
--- OUTSIDE RECORDS SUMMARY | 2016-07-03 17:11 | XMS REPORT ---
Author Author GENERATED, SYSTEM Organization Unknown Address Unknown Phone Unavailable Care Team Providers Care Log Loader Name Role Phone MD RUSSEL, GARRETT [phone] Reason For Visit Reason for Visit from 03/09/2015 8:35 AM:* Pt Stated Reason for Adm : Granix injections Chief Complaint D70.1, Z92.21 Social History Functional Status Functional Status from 04/06/2015 8:11 AM:* LOC : Alert * Oriented To : Person,Place,Time Functional Status from 04/05/2015 10:07 AM:* LOC : Alert * Oriented To : Person,Place,Time,Event Functional Status from 04/04/2015 9:16 AM:* LOC : Alert * Oriented To : Person,Place,Time,Event Functional Status from 04/03/2015 9:55 AM:* LOC : Alert * Oriented To : Person,Place,Time Functional Status from 03/30/2015 10:48 AM:* LOC : Alert * Oriented To : Person,Place,Time Functional Status from 03/29/2015 2:25 PM:* LOC : Alert * Oriented To : Person,Place,Time Functional Status from 03/28/2015 9:15 AM:* LOC : Alert * Oriented To : Person,Place,Time,Event Functional Status from 03/27/2015 9:15 AM:* LOC : Alert * Oriented To : Person,Place,Time,Event Functional Status from 03/23/2015 9:58 AM:* LOC : Alert * Oriented To : Person,Place,Time Functional Status from 03/22/2015 10:18 AM:* LOC : Alert * Oriented To : Person,Place,Time Functional Status from 03/21/2015 10:12 AM:* LOC : Alert * Oriented To : Person,Place,Time,Event Functional Status from 03/20/2015 1:04 PM:* LOC : Alert * Oriented To : Person,Place,Time Functional Status from 03/16/2015 10:15 AM:* LOC : Alert * Oriented To : Person,Place,Time Functional Status from 03/15/2015 9:38 AM:* LOC : Alert * Oriented To : Person,Place,Time,Event Functional Status from 03/14/2015 10:30 AM:* LOC : Alert * Oriented To : Person,Place,Time Functional Status from 03/13/2015 9:13 AM:* LOC : Alert * Oriented To : Person,Place,Time Functional Status from 03/09/2015 8:35 AM:* LOC : Alert * Oriented To : Person,Place,Time,Event Vital Signs Hospital Vital Signs from 04/06/2015 8:11 AM:* Height : 5/4 ft,in * Temperature : 96.6 F * Pulse : 62 * Respirations : 18 * BP : 122/50 Hospital Vital Signs from 04/05/2015 10:13 AM:* Height : 5/4 ft,in * Temperature : 97.4 F * Pulse : 57 * Respirations : 18 * BP : 124/56 Hospital Vital Signs from 04/04/2015 9:17 AM:* Height : 5/4 ft,in * Temperature : 97.0 F * Pulse : 64 * Respirations : 18 * BP : 126/60 Hospital Vital Signs from 04/03/2015 9:54 AM:* Height : 5/4 ft,in * Temperature : 97.7 F * Pulse : 61 * Respirations : 18 * BP : 144/66 Hospital Vital Signs from 03/30/2015 10:48 AM:* Height : 5/4 ft,in * Temperature : 96.7 F * Pulse : 61 * Respirations : 18 * BP : 112/55 Hospital Vital Signs from 03/29/2015 2:27 PM:* Height : 5/4 ft,in * Temperature : 97.9 F * Pulse : 57 * Respirations : 18 * BP : 116/55 Hospital Vital Signs from 03/27/2015 9:18 AM:* Height : 5/4 ft,in * Temperature : 97.3 F * Pulse : 58 * Respirations : 20 * BP : 159/69 Hospital Vital Signs from 03/23/2015 10:00 AM:* Height : 5/4 ft,in * Temperature : 97.7 F * Pulse : 60 * Respirations : 18 * BP : 132/64 Hospital Vital Signs from 03/22/2015 10:17 AM:* Height : 5/4 ft,in * Temperature : 97.2 F * Pulse : 61 * Respirations : 18 * BP : 136/60 Hospital Vital Signs from 03/21/2015 10:14 AM:* Height : 5/4 ft,in * Temperature : 98.2 F * Pulse : 61 * Respirations : 18 * BP : 118/62 Hospital Vital Signs from 03/20/2015 1:09 PM:* Height : 5/4 ft,in * Temperature : 98.5 F * Pulse : 58 * Respirations : 18 * BP : 134/67 Hospital Vital Signs from 03/16/2015 10:18 AM:* Height : 5/4 ft,in * Temperature : 97.0 F * Pulse : 66 * Respirations : 18 * BP : 138/67 Hospital Vital Signs from 03/15/2015 9:38 AM:* Height : 5/4 ft,in * Temperature : 96.9 F * Pulse : 62 * Respirations : 18 * BP : 137/74 Hospital Vital Signs from 03/14/2015 10:34 AM:* Height : 5/4 ft,in * Temperature : 97.8 F * Pulse : 62 * Respirations : 18 * BP : 133/62 Hospital Vital Signs from 03/13/2015 9:18 AM:* Height : 5/4 ft,in * Temperature : 96.8 F * Pulse : 56 * Respirations : 18 * BP : 143/71 Hospital Vital Signs from 03/09/2015 8:35 AM:* Height : 5/4 ft,in * Temperature : 96.2 F * Pulse : 61 * Respirations : 18 * BP : 114/42 Results Problems Encounter Diagnosis No relevant problems [...]
--- OUTSIDE RECORDS SUMMARY | 2016-07-03 17:11 | XMS REPORT | Summary of Care ---
Author Author Sherry Mckeon M.D. Unknown Address [address], [place] [id number] Phone Unavailable Care Team Providers Care Roller Stitcher Name Role Phone Kadeem Jade M.D. 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 Combined form of senile cataract, left (366.19, H25.812) Status: Active Hyperopia (367.0, H52.00) Status: Active Hypertension (401.9, I10) Status: Active Hypercholesterolemia (272.0, E78.0) Status: Active CAD S/P percutaneous coronary angioplasty (414.01, I25.10) Status: Active Osteoporosis (733.00, M81.0) Status: Active Malignant neoplasm of female breast (174.9, C50.919) Status: Active Aneurysm of abdominal aorta (441.4, I71.4) Status: Active Medications Name Dates Details Lisinopril 20 MG Oral Tablet take one tablet by mouth every day Quantity: 180 MckeonSherry M.D.* Started 29-Dec-2007 ActiveClaritin 10 MG Oral Capsule Take one tab daily as needed * Quantity: 30 Refills: 3 MckeonhSerry M.D.* Started 11-Dec-2008 ActiveMetoprolol Tartrate 25 MG [...] 1 Refills: 0 MckeonSherry M.D.* Started 22-Jun-2014 Active Allergies and Adverse [...] History of Lymphatic Surgery Intraoperative Identification Of [place] Node Completed:19-Oct-2012 History of Deep Axillary Lymph [...] Administered on:04-Jun-2009 Fluzone Intramuscular Injectable Lot #: [id number] Administered on:01-Jan-2010 Influenza Administered on:08-Nov-2011 Pneumo (Pneumovax) Lot #: [id number] Administered on:05-Jan-2012 Influenza Lot #: [id number] Administered on:20-Dec-2012 Fluzone Intramuscular Injectable Lot #: [id number] Administered on:09-Jan-2014 Prevnar 13 Intramuscular Suspension Lot #: [id number] Administered on:22-Jun-2014 Family History natural daughter* Name [...] ml/min (Better) Range: >60 EST GFR, NON-AFR CITIZEN OF [place] >60 ml/min (Better) Range: >60 Comments: EST GFR is reported in ml/min per 1.73 m2 of body surface area. For -Bhutanese, please multiple result by 1.2.----- GLUCOSE 96 [...] Planned Encounters* Appointment; Provider: Jerod Paz On 29-Jun-2015 08:30 * Appointment; Provider: Kadeem Jade On 13-Dec-2014 09:30 * Appointment; Provider: Sherry Mckeon On 09:00 * Appointment; Provider: Daniele Gil On 10:30 * Appointment; Provider: Ja Palacios On 04-Jul-2014 15:00 * Appointment; Provider: Daniele Gil On 08:00 [...] Instructions * Instructions not documented Encounters Appointment; Marito Nickerson Encounter Diagnosis: Problem not [...]
--- OUTSIDE RECORDS SUMMARY | 2016-07-03 17:11 | XMS REPORT ---
Author Author GENERATED, SYSTEM Organization Unknown Address Unknown Phone Unavailable Care Team Providers Care Raise Driller Name Role Phone MD RUSSEL, GARRETT PP [phone] Reason For Visit Reason for Visit from 05/08/2015 8:40 AM:* Pt Stated Reason for Adm : neupogen Chief Complaint D70.1, Z92.21 Social History Functional Status Functional Status from 05/11/2015 10:32 AM:* LOC : Alert * Oriented To : Person,Place,Time,Event Functional Status from 05/10/2015 9:35 AM:* LOC : Alert * Oriented To : Person,Place,Time Functional Status from 05/09/2015 10:00 AM:* LOC : Alert * Oriented To : Person,Place,Time,Event Functional Status from 05/08/2015 8:40 AM:* LOC : Alert * Oriented To : Person Vital Signs Hospital Vital Signs from 05/11/2015 10:32 AM:* Height : 5/4 ft,in * Temperature : 98.0 F * Pulse : 64 * Respirations : 18 * BP : 119/58 Hospital Vital Signs from 05/10/2015 9:37 AM:* Height : 5/4 ft,in * Temperature : 96.7 F * Pulse : 64 * Respirations : 18 * BP : 124/54 Hospital Vital Signs from 05/09/2015 10:00 AM:* Height : 5/4 ft,in * Temperature : 97.2 F * Pulse : 55 * Respirations : 20 * BP : 121/34 Hospital Vital Signs from 05/08/2015 8:43 AM:* Weight : 89.2/ kg * Height : 5/4 ft,in * Temperature : 96.5 F * Pulse : 62 * Respirations : 18 * BP : 143/65 Hospital Vital Signs from 05/08/2015 8:40 AM:* Weight : 89.2/ kg * Height : 5/4 ft,in Results Problems Encounter Diagnosis No relevant problems [...]
--- OUTSIDE RECORDS SUMMARY | 2016-07-03 17:11 | XMS REPORT | Summary of Care ---
Author Author Sherry Mckeon M.D. Unknown Address [address], [place] [id number] Phone Unavailable Care Team Providers Care Air Vice Marshal Name Role Phone Kadeem Jade M.D. Unavailable [...] (285.9, D64.9) Status: Active Chronic constipation (564.00, K59.00) Status: Active History of proctitis (V12.79, Z87.19) [...] TABLET TWICE DAILY NEEDED. * Refills: 0 MckeonOha M.D.* Started 18-May-2015 Active Allergies and Adverse [...] History of Lymphatic Surgery Intraoperative Identification Of [place] Node Completed:19-Oct-2012 History of Deep Axillary Lymph [...] Eye History of Cataract Extraction CP Echo Ordered:27-Mar-2015 Immunization Name Dates Details Diphtheria-Tetanus Toxoids 6.7-5 LFU/0.5ML Intramuscular Injectable Administered on:07-Jun-2006 Zoster (Zostavax) Administered on:04-Jun-2009 Fluzone Intramuscular Injectable Lot #: [id number] Administered on:01-Jan-2010 Influenza Administered on:08-Nov-2011 Pneumo (Pneumovax) Lot #: [id number] Administered on:05-Jan-2012 Influenza Lot #: [id number] Administered on:20-Dec-2012 Fluzone Intramuscular Injectable Lot #: [id number] Administered on:09-Jan-2014 Prevnar 13 Intramuscular Suspension Lot #: [id number] Administered on:22-Jun-2014 Family History natural daughter* Name [...] smoker Vital Signs Date Test Result Details 18-May-2015 13:42 BP Systolic 146 mm[Hg] Status: BP Diastolic 84 mm[Hg] Status: Heart Rate 65 /min Status: Weight 141 lb Status: O2 SAT 98 % Status: Body Mass Index Calculated 24.59 kg/m2 Status: Body Surface Area Calculated 1.68 m2 Status: Results Date Description Value Details 08-May-2015 08:45 CT CHEST/AB/PEL WITH ORAL AND IV CONTRAST Comments: Exam Date: 05/08/2015 07:42Dictation Date: 05/08/2015 08:45 XC CHEST/AB/PEL 45 CT (Better) Plan of Care Planned Observations* Name [...]
--- OUTSIDE RECORDS SUMMARY | 2016-07-03 17:11 | XMS REPORT | Summary of Care ---
Author Author Mike Anderson, Sherry Shirley Unknown Address Unknown Phone Unavailable Care Team Providers Care Interactive Media Designer Name Role Phone Kadeem Jade M.D. Unavailable [...] Flu vaccine need (V04.81, Z23) Status: Active Medications Name Dates Details Lisinopril [...] Mckeon M.D., Sherry * Start 02-Jan-2016 Active Allergies and Adverse Reactions Name Dates [...] History of Lymphatic Surgery Intraoperative Identification Of [place] Node Completed: 19-Oct-2012 History of Deep Axillary [...] (Zostavax) on: 04-Jun-2009 Fluzone INJ Lot #: [id number] on: 01-Jan-2010 Influenza on: 08-Nov-2011 Pneumo (Pneumovax) Lot #: [id number] on: 05-Jan-2012 Influenza Lot #: [id number] on: 20-Dec-2012 Fluzone INJ Lot #: [id number] on: 09-Jan-2014 Prevnar 13 Intramuscular Suspension Lot #: [id number] on: 22-Jun-2014 Fluzone Quadrivalent 0.5 ML Intramuscular Suspension Prefilled Syringe Lot #: [id number] on: 02-Jan-2016 Family History Name Dates Details [...] smoker Vital Signs Date Test Result Details 02-Jan-2016 09:06 BP Systolic 146 mm[Hg] Status: Comments: Location: ; Position: BP Diastolic 80 mm[Hg] Status: Comments: Location: ; Position: Heart Rate 56 /min Status: Comments: Location: ; Weight 126 lb Status: Body Mass Index Calculated 21.29 kg/m2 Status: Body Surface Area Calculated 1.62 m2 Status: 19-Dec-2015 09:37 BP Systolic 130 mm[Hg] Status: Comments: Location: LUE; Position: Sitting BP Diastolic 72 mm[Hg] Status: Comments: Location: E; Position: Sitting 19-Dec-2015 09:16 BP Systolic 142 mm[Hg] Status: Comments: Location: ; Position: BP Diastolic 76 mm[Hg] Status: Comments: Location: ; Position: Heart Rate 55 /min Status: Comments: Location: ; Weight 126 lb Status: Physical Findings 99 Status: Comments: O2 Saturation Body Mass Index Calculated 21.29 kg/m2 Status: Body Surface Area Calculated 1.62 m2 Status: Results Date Description Value Details 19-Dec-2015 09:08 ECG/ EKG (Specialists) Electro CardioGram 09:13 CP Echo Y Linked PDF Report Available for Review by Clicking ImageLink Button 28-Dec-2015 09:21 CT CHEST/AB/PEL WITH ORAL AND IV CONTRAST Comments: Exam Date: 12/28/2015 08:05Dictation Date: 12/28/2015 09:21 XC CHEST/AB/PEL 45 [place] Plan of Care Name Dates Details Planned Observations Planned Goals not documented Planned Encounters Appointment; Provider: Kadeem Jade M.D. On 20-Nov-2016 09:30 Appointment; Provider: Ja Palacios M.D. On 15-Oct-2016 09:00 Appointment; Provider: Jerod Paz M.D. On 02-Jul-2016 08:30 Appointment; Provider: Sherry Mckeon M.D. On 24-Jun-2016 08:30 Interventions Provided Medications/Immunizations Administered* Fluzone Quadrivalent 0.5 ML Intramuscular Suspension Prefilled Syringe; Done: 02 Jan 2016 Instructions Name Dates Details Instructions not documented Encounters Appointment; Kadeem Jade M.D. Encounter Diagnosis: Problem [...] documented On 09-Nov-2014 09:30 Appointment; Daniele Gil M.D.|[facility].|Monica,NICK,JOHN, Encounter Diagnosis: Problem not documented On 13:00 Appointment; Ja Palacios M.D. Encounter Diagnosis: Problem not documented On 13:45 Appointment; Jerod Paz M.D. Encounter Diagnosis: Problem not documented On 18:15 Appointment; Jerod Paz M.D. Encounter Diagnosis: Problem not documented On 10:45 Appointment; Daniele Gil M.D.|[facility].|Monica,JOHN|Monica,JOHN, Encounter Diagnosis: Problem not documented On 14:00 [...] documented On 22-Jun-2014 09:00 Appointment; Daniele Gil M.D.|[facility].|MJacob,JOHN|Monica,JOHN, Encounter Diagnosis: Problem not documented On 21-Jun-2014 13:15 Appointment; Daniele Gil M.D.|[facility].|MJacob,JOHN|MJacob,JOHN, Encounter Diagnosis: Problem not documented On 07-Jun-2014 10:00 Appointment; Sherry Mckeon M.D. Encounter Diagnosis: Problem not documented On 09-Jan-2014 15:15"
--- OUTSIDE RECORDS SUMMARY | 2016-07-03 17:12 | XMS REPORT | Continuity of Care Document ---
Author Author [facility] Organization [facility] Address Unknown Phone Unavailable Allergies Medications Problems Procedures Results Test Result Range CBC WITH PLATELET AND DIFFERENTIAL - 06/20/16 08:02 SEGS 92.9 % NRG *BASOPHILS 0.0 % NRG *EOSINOPHILS 0.0 % NRG AUTOMATED DIFF PERFORMED NRG *LYMPHOCYTES 2.4 % NRG *MONOCYTES 4.7 % NRG *ABSOLUTE BASOPHILS 0.00 10*3/uL 0.00- 0.20 *ABSOLUTE EOSINOPHILS 0.00 10*3/uL 0.00- 0.50 *ABSOLUTE LYMPHOCYTES 0.20 10*3/uL 1.00- 3.00 *ABSOLUTE MONOCYTES 0.40 10*3/uL 0.30- 1.00 *ABSOLUTE NEUTROPHILS 7.30 10*3/uL 1.80- 7.80 MPV 7.6 fL 7.4-10.4 PLATELETS 243 10*3/uL 159-386 WBC 7.9 10*3/uL 3.6-11.2 RBC 3.59 3.63-4.92 HEMOGLOBIN 12.4 11.0-14.3 HEMATOCRIT 36.1 % 31.2-41.9 MCV 100.8 fL 79.0-98.0 MCH 34.6 pg 27.0-33.0 MCHC 34.3 32.0-36.0 RDW 13.7 % 12.3-17.0 RDWSD 48.1 37.1-47.8 COMPREHENSIVE METABOLIC PANEL - 06/20/16 08:02 BILIFUBIN TOTAL 0.60 0.20-1.00 TOTAL PROTEIN 7.1 6.4-8.2 ALBUMIN 3.1 3.4-5.0 *GLOBULIN 4.0 2.3-3.5 *A/G RATIO 0.8 1.5-2.2 ALK PHOS 69 U/L 46-116 ALT (SGPT) 18 U/L 16-63 AST (SGOT) 19 U/L 15-37 GFR ESTIMATION - 06/20/16 08:02 *GFR EST NON AFR DJIBOUTIAN 86 mL/min NRG *GRFA EST AFR AMER >90 mL/min NRG LIPASE - 06/20/16 08:02 LIPASE 117 U/L 73-393 TROPONIN-I - 06/20/16 08:02 TROPONIN-I <0.017 ng/mL 0.000-0.056 PROTHROMBIN TIME - 06/20/16 09:09 *INR 1.1 0.9-1.1 *PROTHROMBIN TIME 11.2 s 9.4-11.5 PARTIAL THROMBOPLASTIN TIME - 06/20/16 09:09 PARTIAL THROMBOPLASTIN TIME 27.1 s 23.0- 31.0 HEMOGLOBIN - 06/20/16 18:36 HEMOGLOBIN 10.7 11.0-14.3 BASIC METABOLIC PANEL - 06/20/16 18:36 SODIUM 130 mmol/L 136-145 POTASSIUM 3.7 mmol/L 3.5-5.1 CHLORIDE 98 mmol/L 98-107 TCO2 23.7 mmol/L 21.0-32.0 *ANION GAP 8.3 mmol/L 8.0-16.0 BUN 19 7-18 CREATININE 0.65 0.55-1.02 *BUN/CREATININE RATIO 29.2 9.1-17.0 GLUCOSE 137 65-99 CALCIUM 8.2 8.5-10.1 Encounters ACCT No. Visit Date/Time Discharge Status Pt. Type Provider Facility Loc./Unit Complaint [id number] 07/13/2015 08:56:00 2015 03:30:00 DIS Outpatient GARRETT GOODE [id number] 06/08/2015 00:01:00 2015 00:14:48 DIS Outpatient AMANUEL CARRANZA D70.1, Z92.21 [id number] 04/09/2015 00:01:00 2015 00:44:28 DIS Outpatient AMANUEL CARRANZA [id number] 03/09/2015 00:01:00 2015 00:44:06 DIS Outpatient AMANUEL CARRANZA [id number] 02/06/2015 00:01:00 2015 00:43:54 DIS Outpatient AMANUEL CARRANZA [id number] 01/09/2015 09:02:00 2014 00:42:27 DIS Outpatient AMANUEL CARRANZA [id number] 01/02/2015 11:08:00 2014 07:30:08 DIS Outpatient AMANUEL CARRANZA [id number] 06/20/2016 07:36:00 Document Registration [id number] 05/08/2015 00:01:00 ACT Outpatient AMANUEL CARRANZA
--- OUTSIDE RECORDS SUMMARY | 2016-07-03 17:12 | XMS REPORT | Summary of Care ---
Author Author Jerod Paz M.D. Unknown Address [address] [place], [place] [address] Phone Unavailable Care Team Providers Care Culinary Intern Name Role Phone Kadeem Jade M.D. Unavailable [...] of abdominal aorta (441.4, I71.4) Status: Active Tobacco abuse counseling (V65.42, Z71.6) Status: Active Nicotine dependence (305.1) Status: Active Hypertension (401.9, I10) Status: Active Hypercholesterolemia (272.0, E78.0) Status: Active CAD S/P percutaneous coronary angioplasty (414.01, I25.10) Status: Active Osteoporosis (733.00, M81.0) Status: Active Malignant neoplasm of female breast (174.9, C50.919) Status: Active Actinic keratosis (702.0, L57.0) Status: Active Medications Name Dates Details Lisinopril [...] Refills: 0 Sherry Mckeon M.D.* Started 22-Jun-2014 Active Allergies and Adverse [...] History of Lymphatic Surgery Intraoperative Identification Of [place] Node Completed:19-Oct-2012 History of Deep Axillary Lymph [...] Administered on:04-Jun-2009 Fluzone Intramuscular Injectable Lot #: [id number] Administered on:01-Jan-2010 Influenza Administered on:08-Nov-2011 Pneumo (Pneumovax) Lot #: [id number] Administered on:05-Jan-2012 Influenza Lot #: [id number] Administered on:20-Dec-2012 Fluzone Intramuscular Injectable Lot #: [id number] Administered on:09-Jan-2014 Prevnar 13 Intramuscular Suspension Lot #: [id number] Administered on:22-Jun-2014 Family History natural daughter* Name [...] ml/min (Better) Range: >60 EST GFR, NON-AFR [place] >60 ml/min (Better) Range: >60 Comments: EST GFR is reported in ml/min per 1.73 m2 of body surface area. For -Mexican, please multiple result by 1.2.----- GLUCOSE 96 [...] Daniele Gil On 10:30 * Appointment; Provider: Daniele Gil On 08:00 [...]
--- OUTSIDE RECORDS SUMMARY | 2016-07-03 17:12 | XMS REPORT | Summary of Care ---
Author Author Mike Anderson, Sherry Shirley Unknown Address Unknown Phone Unavailable Care Team Providers Care Web Production Artist Name Role Phone Kadeem Jade M.D. Unavailable [...] History of Lymphatic Surgery Intraoperative Identification Of [place] Node Completed: 19-Oct-2012 History of Deep Axillary [...] (Zostavax) on: 04-Jun-2009 Fluzone INJ Lot #: [id number] on: 01-Jan-2010 Influenza on: 08-Nov-2011 Pneumo (Pneumovax) Lot #: [id number] on: 05-Jan-2012 Influenza Lot #: [id number] on: 20-Dec-2012 Fluzone INJ Lot #: [id number] on: 09-Jan-2014 Prevnar 13 Intramuscular Suspension Lot #: [id number] on: 22-Jun-2014 Fluzone Quadrivalent 0.5 ML Intramuscular Suspension Prefilled Syringe Lot #: [id number] on: 02-Jan-2016 Family History Name Dates Details [...] 08:05Dictation Date: 12/28/2015 09:21 XC CHEST/AB/PEL 45 [place] Plan of Care Name Dates Details Planned [...] documented On 22-Jun-2014 09:00 Appointment; Daniele Gil M.D.|[facility].|Monica,JOHN|Monica,JOHN, Encounter Diagnosis: Problem not documented On 21-Jun-2014 13:15 Appointment; Daniele Gil M.D.|[facility].|Monica,JOHN|Monica,JOHN, Encounter Diagnosis: Problem not documented On 07-Jun-2014 10:00"
--- OUTSIDE RECORDS SUMMARY | 2016-07-03 17:12 | XMS REPORT ---
Author Author GENERATED, SYSTEM Organization Unknown Address Unknown Phone Unavailable Care Team Providers Care Epic [facility] Name Role Phone MD RUSSEL, GARRETT [phone] Reason For Visit Reason for Visit from 07/13/2015 9:05 AM:* Pt Stated Reason for Adm : Reclast Chief Complaint OSETOPORSIS Social History Functional Status Functional Status from 07/13/2015 9:05 AM:* LOC : Alert * Oriented To : Person,Place,Time Vital Signs Hospital Vital Signs from 07/13/2015 9:05 AM:* Weight : 140/ lbs,oz * Height : 5/4 ft,in * Height : 5/4 ft,in * Temperature : 98.1 F * Pulse : 61 * Respirations : 18 * BP : 163/67 Results Problems Encounter Diagnosis No relevant problems [...]
--- OUTSIDE RECORDS SUMMARY | 2016-07-03 17:12 | XMS REPORT | Summary of Care ---
Author Author Jeffery Anderson, FACS, ,, [facility] Organization Unknown Address [address], [place] [id number] Phone Unavailable Care Team Providers Care Engineering Faculty Member Name Role Phone Kadeem Jade M.D. 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 * Quantity: 180 Refills: 0 Sherry Mckeon M.D.* Started 09-Jan-2014 ActiveClindamycin HCl - 150 MG Oral Capsule TAKE 4 CAPSULES BY MOUTH 1 HOUR PRIOR TO APPOINTMENT * Quantity: 12 Refills: 0 Sherry Mckeon M.D.* Started 09-Jan-2014 ActiveZoledronic Acid 5 MG/100ML Intravenous Solution INFUSE 5MG INTRAVENOUSLY OVER 15 MINUTES DIRECTED. * Quantity: 1 Refills: 0 Sherry Mckeon M.D.* Started 22-Jun-2014 ActiveVigamox 0.5 % Ophthalmic Solution INSTILL 1 DROP INTO AFFECTED EYE(S) 3 TIMES DAILY. * Quantity: 1 Refills: 1 Ja Palacios M.D.* Started 11-Jul-2014 Active3 ML Bottle PrednisoLONE Acetate 1 % Ophthalmic Suspension Install 1 drop as directed 6 times daily (during waking hours) Starting after surgery. * Quantity: 10 Refills: 1 Ja Palacios M.D.* Started 11-Jul-2014 ActiveAzithromycin 250 MG Oral Tablet TAKE 2 TABLETS ON DAY 1 THEN TAKE 1 TABLET A DAY FOR 4 DAYS. * Quantity: 6 Refills: 0 Sherry Mckeon M.D.* Started 24-Jul-2014 Active Allergies and Adverse Reactions Name Dates [...] History of Lymphatic Surgery Intraoperative Identification Of [place] Node Completed:19-Oct-2012 History of Deep Axillary Lymph [...] Cataract Extract With Prosthesis Insert Left Eye BASIC METABOLIC PROFILE 1210 Ordered: CT CTA PELVIS Ordered:21-Jun-2014 Immunization Name Dates Details Diphtheria-Tetanus Toxoids 6.7-5 LFU/0.5ML Intramuscular Injectable Administered on:07-Jun-2006 Zoster (Zostavax) Administered on:04-Jun-2009 Fluzone Intramuscular Injectable Lot #: [id number] Administered on:01-Jan-2010 Influenza Administered on:08-Nov-2011 Pneumo (Pneumovax) Lot #: [id number] Administered on:05-Jan-2012 Influenza Lot #: [id number] Administered on:20-Dec-2012 Fluzone Intramuscular Injectable Lot #: [id number] Administered on:09-Jan-2014 Prevnar 13 Intramuscular Suspension Lot #: [id number] Administered on:22-Jun-2014 Family History natural daughter* Name [...] to report Results Date Description Value Details 12:22 CT CTA ABD WITH IV CONTRAST Comments: Exam Date: 08/07 09:16Dictation Date: 08/07/2014 12:22 XC CTA ABD (Better) Plan of Care Planned Observations* Name Dates Details Planned Goals not documented Goal Planned Encounters* Appointment; Provider: Jerod Paz On 29-Jun-2015 08:30 * Appointment; Provider: Kadeem Jade On 13-Dec-2014 09:30 * Appointment; Provider: Sherry Mckeon On 09:00 * Appointment; Provider: Jerod Paz On 10:45 * Appointment; Provider: Ja Palacios On 09:15 * Appointment; Provider: Daniele Gil On 10:30 * Appointment; Provider: Schedule Radiology On 09:30 [...] Instructions * Instructions not documented Encounters Appointment; Ja Palacios Encounter Diagnosis: Problem not [...] Problem not documented On 21-Jun-2014 13:15 Appointment; Dainele Gil Encounter Diagnosis: Problem not documented On [...] Problem not documented On 18-Apr-2013 13:15 Appointment; Talon May Encounter Diagnosis: Problem not documented On [...]
--- OUTSIDE RECORDS SUMMARY | 2016-07-03 17:12 | XMS REPORT | Summary of Care ---
Author Author Sherry Mckeon M.D. Unknown Address [address] [place], [place] [id number] Phone Unavailable Care Team Providers Care Baggage Checker Name Role Phone Kadeem Jade M.D. Unavailable [...] 1 TABLET DAILY DIRECTED. * Refills: 0 MkceonSherry M.D.* Started 19-May-2013 ActiveAtorvastatin Calcium 20 MG Oral Tablet TAKE 1 TABLET DAILY. * Quantity: 180 Refills: 0 MckeonSherry M.D.* Started 09-Jan-2014 ActiveClindamycin HCl - 150 MG Oral Capsule TAKE 4 CAPSULES BY MOUTH 1 HOUR PRIOR TO APPOINTMENT * Quantity: 12 Refills: 0 Sherry Mckeon M.D.* Started 09-Jan-2014 Active Allergies and Adverse Reactions Name Dates [...] History of Lymphatic Surgery Intraoperative Identification Of [place] Node Completed:19-Oct-2012 History of Deep Axillary Lymph [...] of Cholecystectomy Comprehensive Metabolic Panel 1212 Ordered:29-May-2014 CBC w/ Auto Diff 7150 Ordered:29-May-2014 Urinalysis, Reflex to Microscopic or Culture PRN 8005 Ordered:29-May-2014 LIPID PROFILE 1184 Ordered:29-May-2014 THYROID STIM. HORMONE 3602 Ordered:29-May-2014 Immunization Name Dates Details Diphtheria-Tetanus Toxoids 6.7-5 LFU/0.5ML Intramuscular Injectable Administered on:07-Jun-2006 Zoster (Zostavax) Administered on:04-Jun-2009 Fluzone Intramuscular Injectable Lot #: [id number] Administered on:01-Jan-2010 Influenza Administered on:08-Nov-2011 Pneumo (Pneumovax) Lot #: [id number] Administered on:05-Jan-2012 Influenza Lot #: [id number] Administered on:20-Dec-2012 Fluzone Intramuscular Injectable Lot #: [id number] Administered on:09-Jan-2014 Family History natural daughter* Name [...] Problem not documented On 14:45 Appointment; Bird Reyse Encounter Diagnosis: Problem not documented On 11:30 [...] Problem not documented On 06-Apr-2013 10:00 Appointment; Talno, August Encounter Diagnosis: Problem not documented On [...] not documented On 24-Nov-2012 09:15 Appointment; Daniele Gli Encounter Diagnosis: Problem not documented On 19-Nov-2012 10:00 Appointment; Kadeem Jade Encounter Diagnosis: Problem not documented On 18-Nov-2012 09:30 Appointment; Daniele Gil Encounter Diagnosis: Problem not documented On 11-Nov-2012 13:15 Appointment; Sherry Mckeon Encounter Diagnosis: Problem not documented On 10-Nov-2012 09:00 Appointment; Daniele Gil Encounter Diagnosis: Problem not documented On 05-Nov-2012 10:00 Appointment; Bird Reeys Encounter Diagnosis: Problem not documented On 03-Nov-2012 [...]
--- OUTSIDE RECORDS SUMMARY | 2016-07-03 17:13 | XMS REPORT | Summary of Care ---
Author Author Mike Anderson, Sherry Shirley Unknown Address Unknown Phone Unavailable Care Team Providers Care Bladder Trimmer Name Role Phone Kadeem Jade M.D. Unavailable [...] History of Lymphatic Surgery Intraoperative Identification Of [place] Node Completed: 19-Oct-2012 History of Deep Axillary [...] (Zostavax) on: 04-Jun-2009 Fluzone INJ Lot #: [id number] on: 01-Jan-2010 Influenza on: 08-Nov-2011 Pneumo (Pneumovax) Lot #: [id number] on: 05-Jan-2012 Influenza Lot #: [id number] on: 20-Dec-2012 Fluzone INJ Lot #: [id number] on: 09-Jan-2014 Prevnar 13 Intramuscular Suspension Lot #: [id number] on: 22-Jun-2014 Fluzone Quadrivalent 0.5 ML Intramuscular Suspension Prefilled Syringe Lot #: [id number] on: 02-Jan-2016 Family History Name Dates Details [...] m2 Status: Results Date Description Value Details 01-May-2016 11:16 CBC w/ Auto Diff 7150 Comments: Items were attached to this order: UA, Urinalysis LabelItems were attached to this order: TSHManual differential indicated. WBC 7.5 K/uL Range: 4.5-11.0 RBC 3.70 mil/uL Range: 3.60-5.00 HGB 13.2 g/dL Range: 12.0-16.0 HCT 39.2 % Range: 36.0-48.0 MCV 106.0 fL (Above high threshold) Range: 80.0-99.0 MCH 35.6 pg (Above high threshold) Range: 27.3-32.5 MCHC 33.6 % Range: 32.0-36.0 RDW 15.2 % (Above high threshold) Range: 11.6-14.8 PLATELETS 248 K/uL Range: 150-400 MPV 7.0 fL Range: 6.0-11.0 11:30 Urinalysis, Reflex to Microscopic or Culture PRN 8005 pH 6.5 Range: 5.0-7.5 SP GRAVITY 1.010 Range: 1.010-1.030 APPEARANCE CLEAR Range: Clear COLOR YELLOW Range: Straw-Yellow PROTEIN NEGATIVE mg/dL Range: Negative-Trace GLUCOSE NEGATIVE mg/dL Range: Negative KETONE NEGATIVE mg/dL Range: Negative BILIRUB NEGATIVE Range: Negative BLOOD MODERATE (Abnormal) Range: Negative UROBIL 1.0 EU/dL Range: 0.2-1.0 NITRITE NEGATIVE Range: Negative LEUK TRACE (Abnormal) Range: Negative 11:30 Comprehensive Metabolic Panel 1212 Comments: Items were attached to this order: UA, Urinalysis LabelItems were attached to this order: TSH SODIUM 128 mmol/L (Below low threshold) Range: 133-144 POTASSIUM 3.7 mmol/L Range: 3.5-5.1 CHLORIDE 92 mmol/L (Below low threshold) Range: 98-110 CARBON DIOXIDE 25.8 mmol/L Range: 23.0-33.0 ANION GAP 10 mmol/L Range: 6-16 BUN 8 mg/dL Range: 7-18 CREATININE, SERUM 0.68 mg/dL Range: 0.55-1.02 BUN:CREATININE RATIO 12 EST GFR, >60 ml/min Range: >60 EST GFR, NON-AFR IRAQI >60 ml/min Range: >60 Comments: EST GFR is reported in ml/min per 1.73 m2 of body surface area. ----- GLUCOSE 111 mg/dL (Above high threshold) Range: 70-100 ALK PHOSPHATASE 64 U/L Range: 46-116 TOTAL BILIRUBIN 0.50 mg/dL Range: 0.20-1.00 AST 15 U/L Range: 8-35 ALT 13 U/L (Below low threshold) Range: 14-59 ALBUMIN 2.9 g/dL (Below low threshold) Range: 3.4-5.0 TOTAL PROTEIN 7.0 g/dL Range: 6.4-8.2 A/G RATIO 0.7 units (Below low threshold) Range: 1.0-1.8 CALCIUM 8.8 mg/dL Range: 8.5-10.1 11:39 THYROID STIM. HORMONE 3602 Comments: Items were attached to this order : UA, Urinalysis LabelItems were attached to this order: TSH THYROID STIM. HORMONE 0.990 uIU/mL Range: 0.550-4.780 Comments: No established reference ranges for infants and children <2 years of age----- 11:40 Manual Differential 7400 Comments: Items were attached to this order: UA, Urinalysis LabelItems were attached to this order: TSH SEGS 82 % (Above high threshold) Range: 37-80 BANDS 0 % Range: 0-7 LYMPH 9 % (Below low threshold) Range: 13-50 MONO 9 % Range: 0-12 EOSIN 0 % Range: 0-7 BASO 0 % Range: 0-3 THOMAS LYMPH 0 % Range: 0-0 META 0 % Range: 0-0 MYELO 0 % Range: 0-0 PRO 0 % Range: 0-0 BLAST 0 % Range: 0-0 NUC RBC 0 /100 WBC Range: 0-0 SMUDGE 0 /100 WBC PLATELET Adequate Range: Adequate ANISO Slight MACROCYT Slight 11:55 Urine Microscopic UMIC WBC 3-5 /HPF Range: 0-5 RBC 6-10 /HPF (Abnormal) Range: 0-2 BACTERIA 1+ /HPF (Abnormal) Range: Negative-Trace EPITH 0-2 /HPF Range: 0-10 Plan of Care Name Dates Details Planned [...] Start Labs/Procedures/Imaging* CBC w/ Auto Diff 7150; Done: May 01 2016 11:01AM * Comprehensive Metabolic Panel 1212; Done: May 01 2016 11:01AM * THYROID STIM. HORMONE 3602; Done: May 01 2016 11:01AM * Urinalysis, Reflex to Microscopic or Culture PRN 8005; Done: May 01 2016 11: 01AM Instructions Name Dates Details Instructions not documented Encounters Appointment; Sherry Mckeon M.D. Encounter Diagnosis: Problem not documented On 02-Jan-2016 09:00 Appointment; Kadeem Jdae M.D. Encounter Diagnosis: Problem not documented On [...] documented On 09-Nov-2014 09:30 Appointment; Daniele Gil M.D.|FDedrick.C.SKait|Monica,NICK,JOHN, Encounter Diagnosis: Problem not documented On 13:00 Appointment; Ja Palacios M.D. Encounter Diagnosis: Problem not documented On 13:45 Appointment; Jerod Paz M.D. Encounter Diagnosis: Problem not documented On 18:15 Appointment; Jerod Paz M.D. Encounter Diagnosis: Problem not documented On 10:45 Appointment; Daniele Gil M.D.|FDedrick.C.SKait|JOHN Anderson|Monica,JOHN, Encounter Diagnosis: Problem not documented On [...] documented On 22-Jun-2014 09:00 Appointment; Daniele Gil M.D.|F.Andrew.C.SKait|NICK Anderson,JOHN, Encounter Diagnosis: Problem not documented On 21-Jun-2014 13:15 Appointment; Daniele Gil M.D.|F.A.C.S.|Monica,NICK,JOHN, Encounter Diagnosis: Problem not documented On 07-Jun-2014 10:00"
--- OUTSIDE RECORDS SUMMARY | 2016-07-03 17:13 | XMS REPORT | Summary of Care ---
Author Author Jeffery Anderson, FACS, ,, [facility] A Organization Unknown Address [address] [place], [place] [id number] Phone Unavailable Care Team Providers Care Credit Review Manager Name Role Phone Kadeem Jade M.D. Unavailable [...] of the abdomen (793.6, R93.5) Status: Active Medications Name Dates Details Lisinopril [...] 1 Refills: 0 MckeonSherry M.D.* Started 22-Jun-2014 ActiveVigamox 0.5 % Ophthalmic [...] History of Lymphatic Surgery Intraoperative Identification Of [place] Node Completed:19-Oct-2012 History of Deep Axillary Lymph [...] Cataract Extract With Prosthesis Insert Left Eye CBC w/ Auto Diff 7150 Ordered: Comprehensive Metabolic Panel 1212 Ordered: LDH 1140 Ordered: CEA 3502 Ordered: CA 27.29 [id number] Ordered: CT CTA PELVIS Ordered:21-Jun-2014 Immunization Name Dates Details Diphtheria-Tetanus Toxoids 6.7-5 LFU/0.5ML Intramuscular Injectable Administered on:07-Jun-2006 Zoster (Zostavax) Administered on:04-Jun-2009 Fluzone Intramuscular Injectable Lot #: [id number] Administered on:01-Jan-2010 Influenza Administered on:08-Nov-2011 Pneumo (Pneumovax) Lot #: [id number] Administered on:05-Jan-2012 Influenza Lot #: [id number] Administered on:20-Dec-2012 Fluzone Intramuscular Injectable Lot #: [id number] Administered on:09-Jan-2014 Prevnar 13 Intramuscular Suspension Lot #: [id number] Administered on:22-Jun-2014 Family History natural daughter* Name [...] smoker Vital Signs Date Test Result Details 11:07 BP Systolic 110 mm[Hg] Status: BP Diastolic 62 mm[Hg] Status: Results Date Description Value Details 12:22 CT CTA ABD WITH IV CONTRAST Comments: Exam Date: 08/07 09:16Dictation Date: 08/07/2014 12:22 XC CTA ABD (Better) 11:25 BASIC METABOLIC PROFILE 1210 SODIUM 129 mmol/L (Below low threshold) Range: 133-144 POTASSIUM 4.2 mmol/L (Better) Range: 3.5-5.1 CHLORIDE 93 mmol/L (Below low threshold) Range: 98-110 CARBON DIOXIDE 27.6 mmol/L (Better) Range: 23.0-33.0 ANION GAP 8 mmol/L (Better) Range: 6-16 BUN 9 mg/dL (Better) Range: 7-18 CREATININE, SERUM 0.70 mg/dL (Better) Range: 0.70-1.30 Comments: Please note new reference ranges effective 2014.----- EST GFR, >60 ml/min (Better) Range: >60 EST GFR, NON-AFR ETHIOPIAN >60 ml/min (Better) Range: >60 Comments: EST GFR is reported in ml/min per 1.73 m2 of body surface area. For -Citizen Of [place], please multiple result by 1.2.----- BUN:CREATININE RATIO 13 (Better) GLUCOSE 98 mg/dL (Better) Range: 70-100 CALCIUM 9.0 mg/dL (Better) Range: 8.5-10.1 Plan of Care Planned Observations* Name Dates Details Planned Goals not documented Goal Planned Encounters* Appointment; Provider: Jerod Paz On 29-Jun-2015 08:30 * Appointment; Provider: Kadeem Jade On 13-Dec-2014 09:30 * Appointment; Provider: Sherry Mckeon On 09:00 * Appointment; Provider: Jerod Paz On 10:45 * Appointment; Provider: Ja Palacios On 09:15 * Appointment; Provider: Schedule Radiology On 09:30 [...]
--- OUTSIDE RECORDS SUMMARY | 2016-07-03 17:13 | XMS REPORT | Continuity of care Document ---
Author Author GENERATED, SYSTEM Organization Unknown Address Unknown Phone Unavailable Purpose Hospital Course Allergies, Adverse Reactions, Alerts * Penicillins causes "voice changed". * morphine causes Nausea. * Latex Allergy has not been assessed. * IV Contrast Allergy has not been assessed. * No Known Food Allergies. Problems * Abdominal Aortic Aneurysm* Status:Active. * Anemia* Status:Active. * Coronary Arteriosclerosis* Status:Active. * Excision of Breast Tissue* Status:Active. * Repair of Aneurysm of Abdominal Aorta* Status:Active. Procedures No relevant procedures performed. Medication Medication reconciliation has not been performed. Results
--- OUTSIDE RECORDS SUMMARY | 2016-07-03 17:13 | XMS REPORT | Summary of Care ---
Author Author Mike Anderson, Sherry Shirley Unknown Address Unknown Phone Unavailable Care Team Providers Care Clinical Writer Name Role Phone Kadeem Jade M.D. 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 * Quantity: 30 Refills: 2 Mckeon M.D.Sherry * Start 01-May-2016 Active Lutein 20 MG Oral Capsule take 1 capsule daily * Refills: 0 * Start 23-Jun-2016 Active Fluticasone Propionate 50 MCG/ACT Nasal Suspension USE 1 TO 2 SPRAYS IN EACH NOSTRIL ONCE DAILY. * Quantity: 1 Refills: 1 Mckeon M.D.Sherry * Start 24-Jun-2016 Active 16 GM Bottle [...] History of Lymphatic Surgery Intraoperative Identification Of [place] Node Completed: 19-Oct-2012 History of Deep Axillary [...] (Zostavax) on: 04-Jun-2009 Fluzone INJ Lot #: [id number] on: 01-Jan-2010 Influenza on: 08-Nov-2011 Pneumo (Pneumovax) Lot #: [id number] on: 05-Jan-2012 Influenza Lot #: [id number] on: 20-Dec-2012 Fluzone INJ Lot #: [id number] on: 09-Jan-2014 Prevnar 13 Intramuscular Suspension Lot #: [id number] on: 22-Jun-2014 Fluzone Quadrivalent 0.5 ML Intramuscular Suspension Prefilled Syringe Lot #: [id number] on: 02-Jan-2016 Family History Name Dates Details [...] Urinalysis, Reflex to Microscopic or Culture PRN 8004 Comments: Fastin hours pH 7.0 Range: 5.0-7.5 [...] Sherry Mckeon M.D. On 09:00 Appointment; Provider: Schedule Radiology On 08:30 Appointment; Provider: Mayco Patel M.D. On 09:45 [...] not documented On 09:15 Appointment; Daniele Gil M.D.|F.A.C.S.|Monica,JHON|Monica,JOHN, Encounter Diagnosis: Problem not documented On 10:30 Appointment; Ja Palacios M.D. Encounter Diagnosis: Problem not documented On 08:00 Appointment; Ja Palacios M.D. Encounter Diagnosis: Problem not documented On 09:00 Appointment; Ja Palacios M.D. Encounter Diagnosis: Problem not documented On 04-Aug-2014 10:45 Appointment; Ja Palacios M.D. Encounter Diagnosis: Problem not documented On 26-Jul-2014 08:30 Appointment; Ja Palaicos M.D. Encounter Diagnosis: Problem not documented On 25-Jul-2014 12:00 Appointment; Ja Palacios M.D. Encounter Diagnosis: Problem not documented On 11-Jul-2014 09:00 Appointment; Ja Palacios M.D. Encounter Diagnosis: Problem not documented On 04-Jul-2014 15:00 Appointment; Jerod Paz M.D. Encounter Diagnosis: Problem not documented On 26-Jun-2014 18:00"
--- OUTSIDE RECORDS SUMMARY | 2016-07-03 17:14 | XMS REPORT | Summary of Care ---
Author Author Kadeem Jade M.D. Organization Unknown Address [address] [place], [place] [id number] Phone Unavailable Care Team Providers Care Civil Designer Name Role Phone Kadeem Jade M.D. 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, 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) Status: Active Cough (786.2, R05) Status: Active Abnormal CT of the abdomen (793.6, R93.5) Status: Active Lymphadenopathy (785.6, R59.1) Status: Active Actinic keratosis (702.0, L57.0) Status: Active Pseudophakia of left eye (V43.1, Z96.1) Status: Active Pseudophakia of right eye (V43.1, Z96.1) Status: Active Malignant neoplasm of female breast (174.9, C50.919) Status: Active WBC decreased (288.50, D72.819) Status: Active H/O endovascular stent graft for abdominal aortic aneurysm (V43.4, Z95.828) Status: Active CAD S/P percutaneous coronary angioplasty (414.01, I25.10) Status: Active Hypercholesterolemia (272.0, E78.0) Status: Active Essential hypertension (401.9, I10) Status: Active Current every day smoker (305.1, [...] colon (V12.79, Z87.19) Status: Resolved History of Encounter for screening colonoscopy (V76.51, Z12.11) Status: Resolved History of gastrointestinal hemorrhage (V12.79, Z87.19) Status: Resolved History of Microscopic hematuria (599.72, R31.2) Status: Resolved History of Multiparity (V61.5, Z64.1) Status: Resolved History of Pre-operative exam (V72.84, [...] History of Lymphatic Surgery Intraoperative Identification Of [place] Node Completed:19-Oct-2012 History of Deep Axillary Lymph [...] Administered on:04-Jun-2009 Fluzone Intramuscular Injectable Lot #: [id number] Administered on:01-Jan-2010 Influenza Administered on:08-Nov-2011 Pneumo (Pneumovax) Lot #: [id number] Administered on:05-Jan-2012 Influenza Lot #: [id number] Administered on:20-Dec-2012 Fluzone Intramuscular Injectable Lot #: [id number] Administered on:09-Jan-2014 Prevnar 13 Intramuscular Suspension Lot #: [id number] Administered on:22-Jun-2014 Family History natural daughter* Name [...] smoker Vital Signs Date Test Result Details 13-Dec-2014 09:47 BP Systolic 150 mm[Hg] Status: BP Diastolic 80 mm[Hg] Status: Heart Rate 60 /min Status: Respiration Rate 36 /min Status: Weight 146.4 lb Status: Body Mass Index Calculated 25.53 kg/m2 Status: Body Surface Area Calculated 1.7 m2 Status: Results Date Description Value Details 16-Nov-2014 10:02 CBC w/ Auto Diff 7150 Comments: send to Dr. Teague, he wanted lab done WBC 4.1 K/uL (Below low threshold) Range: 4.5-11.0 RBC 3.34 mil/uL (Below low threshold) Range: 3.60-5.00 HGB 11.6 g/dL (Below low threshold) Range: 12.0-16.0 HCT 34.1 % (Below low threshold) Range: 36.0-48.0 MCV 102.1 fL (Above high threshold) Range: 80.0-99.0 MCH 34.7 pg (Above high threshold) Range: 27.3-32.5 MCHC 34.0 % (Better) Range: 32.0-36.0 RDW 14.9 % (Above high threshold) Range: 11.6-14.8 PLATELETS 282 K/uL (Better) Range: 150-400 MPV 7.3 fL (Better) Range: 6.0-11.0 %NEUTRO 54.5 % (Better) Range: 37.0-80.0 %LYMPHS 34.2 % (Better) Range: 13.0-50.0 %MONO 8.4 % (Better) Range: 0.0-12.0 %EOS 0.7 % (Better) Range: 0.0-7.0 %BASO 0.5 % (Better) Range: 0.0-2.5 %ANIBAL 1.8 % (Better) Range: 0.0-5.0 NEUTRO 2.2 K/uL (Better) Range: 2.0-6.9 LYMPHS 1.4 K/uL (Better) Range: 0.6-3.4 MONOS 0.3 K/uL (Better) Range: 0.0-0.9 EOS 0.0 K/uL (Better) Range: 0.0-0.7 BASO 0.0 K/uL (Better) Range: 0.0-0.2 06-Dec-2014 10:05 CT CHEST/AB/PEL WITH ORAL AND IV CONTRAST Comments: Exam Date: 12/06/2014 08:37Dictation Date: 12/06/2014 10:05 XC CHEST/AB/PEL 45 MA (Better) 13-Dec-2014 09:37 ECG/ EKG (Specialists) Electro CardioGram (Better) Plan of Care Planned Observations* Name Dates Details Planned Goals not documented Goal Planned Encounters* Appointment; Provider: Kadeem Jade On 19-Dec-2015 09:30 * Appointment; Provider: Ja Palacios On 13:00 * Appointment; Provider: Jerod aPz On 29-Jun-2015 08:30 * Appointment; Provider: Sherry Mckeon On 26-Jan-2015 14:00 * Appointment; Provider: Schedule Radiology On 06-Dec-2014 [...] Instructions * Instructions not documented Encounters Appointment; Kadeem Jade Encounter Diagnosis: Problem not [...] not documented On 18-Apr-2013 13:15 Appointment; Talon August Encounter Diagnosis: Problem not documented On [...]
--- OUTSIDE RECORDS SUMMARY | 2016-07-03 17:14 | XMS REPORT | Summary of Care ---
Author Author Sherry Mckeon M.D. Unknown Address [address] [place], [place] [id number] Phone Unavailable Care Team Providers Care Wood Tile Installation Helper Name Role Phone Kadeem Jade M.D. 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) Status: Active Abnormal CT of the abdomen [...] Tobacco abuse counseling (V65.42, Z71.6) Status: Active Essential hypertension (401.9, I10) Status: Active Hypercholesterolemia (272.0, E78.0) Status: Active CAD S/P percutaneous coronary angioplasty (414.01, I25.10) Status: Active Duodenal ulcer (532.90, K26.9) Status: Active Malignant neoplasm of female breast (174.9, C50.919) Status: Active Medications Name Dates Details Lisinopril 20 MG Oral Tablet take one tablet by mouth every day Quantity: 180 MckeonSherry M.D.* Started 29-Dec-2007 ActiveClaritin 10 MG Oral Capsule Take one tab daily as needed * Quantity: 30 Refills: 3 MckeonSherry M.D.* Started 11-Dec-2008 ActiveAspirin EC 81 MG Oral Tablet Delayed [...] * Refills: 0 MckeonSherry M.D.* Started 19-May-2013 ActiveZoledronic Acid 5 MG/100ML Intravenous Solution INFUSE 5MG INTRAVENOUSLY OVER 15 MINUTES DIRECTED. * Quantity: 1 Refills: 0 MckeonSherry M.D.* Started 22-Jun-2014 ActivePepcid 20 MG Oral Tablet TAKE 1 TABLET DAILY DIRECTED. * Refills: 0 MckeonSherry M.D.* Started 09-Nov-2014 ActiveAtorvastatin Calcium 20 MG Oral Tablet TAKE 1 TABLET DAILY. * Quantity: 180 Refills: 1 Sherry Mckeon M.D.* Started 09-Jan-2014 ActiveMetoprolol Tartrate 25 MG Oral Tablet TAKE ONE-HALF TABLET BY MOUTH TWO TIMES A DAY * Quantity: 90 Refills: 3 Kadeem Jade M.D.* Started 18-Nov-2012 ActiveGuaiFENesin ER 600 MG Oral Tablet Extended [...] History of Lymphatic Surgery Intraoperative Identification Of [place] Node Completed:19-Oct-2012 History of Deep Axillary Lymph [...] Administered on:04-Jun-2009 Fluzone Intramuscular Injectable Lot #: [id number] Administered on:01-Jan-2010 Influenza Administered on:08-Nov-2011 Pneumo (Pneumovax) Lot #: [id number] Administered on:05-Jan-2012 Influenza Lot #: [id number] Administered on:20-Dec-2012 Fluzone Intramuscular Injectable Lot #: [id number] Administered on:09-Jan-2014 Prevnar 13 Intramuscular Suspension Lot #: [id number] Administered on:22-Jun-2014 Family History natural daughter* Name [...] 07:42Dictation Date: 05/08/2015 08:45 XC CHEST/AB/PEL 45 [place] (Better) Plan of Care Planned Observations* Name [...] Problem not documented On 25-Jul-2014 12:00 Appointment; aJ Palacios Encounter Diagnosis: Problem not documented On [...]
--- OUTSIDE RECORDS SUMMARY | 2016-07-03 17:14 | XMS REPORT | Summary of Care ---
Author Author Sherry Mckeon M.D. Unknown Address [address] [place], [place] [id number] Phone Unavailable Care Team Providers Care Supervisor Maintenance Name Role Phone Kadeem Jade M.D. Unavailable [...] Status: Active Macrocytosis (289.89, D75.89) Status: Active Tobacco abuse counseling (V65.42, Z71.6) Status: Active Nicotine dependence (305.1, F17.200) Status: [...] keratosis (702.0, L57.0) Status: Active Pseudophakia of right eye (V43.1, Z96.1) Status: Active Pseudophakia of left eye (V43.1, Z96.1) Status: Active Hypertension (401.9, I10) Status: Active Hypercholesterolemia (272.0, E78.0) Status: Active CAD S/P percutaneous coronary angioplasty (414.01, I25.10) Status: Active Malignant neoplasm of female breast (174.9, C50.919) Status: Active Diarrhea (787.91, R19.7) Status: Active Medications Name Dates Details Lisinopril [...] tab bid * Quantity: 14 Refills: 0 MckeonSherry M.D.* Started 09-Nov-2014 ActiveCompazine 10 MG Oral Tablet TAKE 1 TABLET 3 TIMES DAILY. * Refills: 0 MckeonSherry M.D.* Started 09-Nov-2014 ActivePepcid 20 MG Oral Tablet TAKE 1 TABLET DAILY DIRECTED. * Refills: 0 MckeonSherry M.D.* Started 09-Nov-2014 ActiveChantix Starting Month Chito [...] History of Lymphatic Surgery Intraoperative Identification Of [place] Node Completed:19-Oct-2012 History of Deep Axillary Lymph [...] Prosthesis Insert Left Eye CP Echo Ordered: Immunization Name Dates Details Diphtheria-Tetanus Toxoids 6.7-5 LFU/0.5ML Intramuscular Injectable Administered on:07-Jun-2006 Zoster (Zostavax) Administered on:04-Jun-2009 Fluzone Intramuscular Injectable Lot #: [id number] Administered on:01-Jan-2010 Influenza Administered on:08-Nov-2011 Pneumo (Pneumovax) Lot #: [id number] Administered on:05-Jan-2012 Influenza Lot #: [id number] Administered on:20-Dec-2012 Fluzone Intramuscular Injectable Lot #: [id number] Administered on:09-Jan-2014 Prevnar 13 Intramuscular Suspension Lot #: [id number] Administered on:22-Jun-2014 Family History natural daughter* Name [...]
--- OUTSIDE RECORDS SUMMARY | 2016-07-03 17:14 | XMS REPORT | Summary of Care ---
Author Author Angelina Tavarez APRN Unknown Address Unknown Phone Unavailable Care Team Providers Care Chief Load Dispatcher Name Role Phone Sherry Mckeon Unavailable Unavailable Unavailable Unavailable Functional Status Functional Status Health Issues* Name Dates Details No known functional status health issues Status: Cognitive Status Health Issues* Name Dates Details No known cognitive status health issues Status: Problems Name Dates Details Osteoarthritis (715.90, M19.90) Status: Active Nicotine dependence (305.1, F17.200) Status: Active Hypermetropia (367.0, H52.00) Status: Active Vitamin d deficiency (268.9, E55.9) Status: Active 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, K22.70) Status: Active Anemia (285.9, D64.9) Status: Active GI bleed (578.9, K92.2) Status: Active 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, 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 Postmenopausal status, age-related (V49.81, Z78.0) Status: Active Aneurysm of abdominal aorta (441.4, I71.4) Status: Active Duodenal ulcer (532.90, K26.9) Status: Active Sinusitis (473.9, J32.9) Status: Active Encounter for screening colonoscopy (V76.51, Z12.11) Status: Active Rectal bleeding (569.3, K62.5) Status: Active Chronic constipation (564.00, K59.00) Status: Active Diverticulosis of colon (562.10, K57.30) Status: Active History of proctitis (V12.79, Z87.19) Status: Active Hypertension (401.9, I10) Status: Active Hypercholesterolemia (272.0, E78.0) Status: Active Coronary artery disease (414.00, I25.10) Status: Active Osteoporosis (733.00, M81.0) Status: Active Malignant neoplasm of female breast (174.9, C50.919) Status: Active Macrocytosis (289.89, D75.89) Status: Active Medications Name Dates Details Simvastatin 20 MG Oral Tablet TAKE 1 TABLET DAILY. Quantity: 90 Tablet * Started 18-Oct-2007 ActiveLisinopril 20 MG Oral Tablet take one tablet by mouth every day * Quantity: 180 Tablet Refills: 2 * Started 29-Dec-2007 ActiveClaritin 10 MG Oral Capsule Take one tab daily as needed * Quantity: 30 Refills: 3 * Started 11-Dec-2008 ActiveMetoprolol Tartrate 25 MG Oral Tablet TAKE ONE-HALF TABLET BY MOUTH TWO TIMES A DAY * Quantity: 90 Tablet Refills: 1 * Started 18-Nov-2012 ActiveProtonix 40 MG Oral Tablet Delayed Release Take one tablet by mouth twice a day * Refills: 0 * Started 18-Apr-2013 ActiveAspirin EC 81 MG Oral Tablet Delayed Release TAKE 1 TABLET DAILY DIRECTED. * Quantity: 30 Tablet Delayed Release Refills: 0 * Started 19-May-2013 ActiveLutein 20 MG Oral Capsule TAKE DIRECTED. * Refills: 0 * Started 19-May-2013 ActiveBiotin 5000 MCG Oral Capsule TAKE 1 CAPSULE DAILY. * Refills: 0 * Started 19-May-2013 ActiveVitamin D 1000 UNIT Oral Capsule Take one tab daily. * Refills: 0 * Started 19-May-2013 ActiveVitamin C 500 MG Oral Tablet TAKE 1 TABLET DAILY. * Refills: 0 * Started 19-May-2013 ActiveAcidophilus Lactobacillus 10 BU/GM Powder USE DIRECTED. * Refills: 0 * Started 19-May-2013 ActiveCalcium [phone] Oral Tablet one daily * Refills: 0 * Started 19-May-2013 ActiveDocusate Sodium 100 MG Oral Tablet TAKE 1 TABLET DAILY DIRECTED. * Refills: 0 * Started 19-May-2013 Active Allergies and Adverse Reactions Name Dates Details Penicillins Status: Active Morphine Derivatives Status: Active Past Medical History Name Dates Details Skin Cancer (V10.83) Status: Resolved Squamous Cell Carcinoma Of The Skin Of The Upper Extremities (173.6) Status: Resolved Basal Cell Carcinoma Of The Skin Of The Hand (173.61) Status: Resolved Multiparity (V61.5, Z64.1) Status: Resolved History of diverticulitis of colon (V12.79, Z87.19) Status: Resolved Proctitis (569.49, K62.89) Status: Resolved Actinic keratosis (702.0, L57.0) Status: Resolved Visit for screening (V82.9, Z13.9) Status: Resolved Microscopic hematuria (599.72, R31.2) Status: Resolved Procedures Procedure Dates Details Total Knee Arthroplasty Tonsillectomy Breast Surgery Simple Mastectomy Completed:19-Oct-2012 Axillary Lymphadenectomy Completed:19-Oct-2012 Lymphatic Surgery Intraoperative Identification Of [place] Node Completed: 19-Oct-2012 Deep Axillary Lymph Node Biopsy Completed:19-Oct-2012 Endovascular Repair Of Abdominal Aorta Aneurysm Completed:04-Jan-2013 Endovasc Repair Aort Aneurysm Infrarenal Modul Bifurc Prosth Completed:Dec-2012 Placement Of Selective Arterial Catheter - Aortic Approach Completed: Open Femoral Artery Expos For Deliv Aortic Endovasc Prosth Completed: Central IV Line Type Central Line Child Age 5 Or Older Completed:2012 Esophagogastroduodenoscopy Upr GI Endoscopy With Control Of Bleeding Central IV Child Age 5 Or Older W/ Tunneling & Subcutan Port Completed:Feb-2013 Duodenoscopy With Biopsy Gastrotomy With Suture Of Bleeding Ulcer Vagotomy Cholecystectomy CP Echo Immunization Name Dates Details Diphtheria-Tetanus Toxoids 6.7-5 LFU/0.5ML Intramuscular Injectable Administered on:07-Jun-2006 Zoster (Zostavax) Administered on:04-Jun-2009 Fluzone Intramuscular Injectable Lot #: [id number] Administered on:01-Jan-2010 Influenza Comments: 11-08-2011 Pneumo (Pneumovax) Lot #: [id number] Administered on:05-Jan-2012 Influenza Lot #: [id number] Administered on:20-Dec-2012 Family History natural daughter* Name Dates Details Adopted Status: Active natural son* Name Dates Details Adopted Status: Active Mother* Name Dates Details Acute Myocardial Infarction (V17.3) Status: Active Essential Hypertension Status: Active Skin Cancer (V16.8) Status: Active Mother At Age ____ Status: Active Father* Name Dates Details Heart Disease (V17.49) Status: Active CABG (CABG) Status: Active Social History Name Dates Details Smoker, Current Status Unknown (305.1) Current every day smoker (305.1, F17.200) Smoking Status* Smoker. current status unknown * Current every day smoker Vital Signs Date Test Result Details 30-Nov-2013 09:42 BP Systolic 149 mm[Hg] Status: BP Diastolic 61 mm[Hg] Status: Heart Rate 53 /min Status: Temperature 97.9 f Status: Weight 151 lb Status: Body Mass Index Calculated 26.33 kg/m2 Status: Body Surface Area Calculated 1.73 Status: Results Date Description Value Details Resulted on: 14-Nov-2013 10:53 CBC w/ Auto Diff 7150 WBC 4.4 K/uL Range: 4.5-11.0=Below low threshold RBC 3.51 mil/uL Range: 3.60-5.00=Below low threshold HGB 12.5 g/dL Range: 12.0-16.0=Better HCT 38.1 % Range: 36.0-48.0=Better MCV 108.7 fL Range: 80.0-99.0=Above high threshold MCH 35.6 pg Range: 27.3-32.5=Above high threshold MCHC 32.7 % Range: 32.0-36.0=Better RDW 14.0 % Range: 11.6-14.8=Better PLATELETS 177 K/uL Range: 150-400=Better MPV 7.2 fL Range: 6.0-11.0=Better %NEUTRO 62.4 % Range: 37.0-80.0=Better %LYMPHS 28.0 % Range: 13.0-50.0=Better %MONO 6.3 % Range: 0.0-12.0=Better %EOS 1.2 % Range: 0.0-7.0=Better %BASO 0.5 % Range: 0.0-2.5=Better %ANIBAL 1.6 % Range: 0.0-5.0=Better NEUTRO 2.8 K/uL Range: 2.0-6.9=Better LYMPHS 1.2 K/uL Range: 0.6-3.4=Better MONOS 0.3 K/uL Range: 0.0-0.9=Better EOS 0.1 K/uL Range: 0.0-0.7=Better BASO 0.0 K/uL Range: 0.0-0.2=Better 11:10 Comprehensive Metabolic Panel 1212 SODIUM 130 mmol/L Range: 133-144=Below low threshold POTASSIUM 3.8 mmol/L Range: 3.5-5.1=Better CHLORIDE 96 mmol/L Range: 98-110=Below low threshold CARBON DIOXIDE 25.8 mmol/L Range: 23.0-33.0=Better ANION GAP 8 mmol/L Range: 6-16=Better BUN 8 mg/dL Range: 7-18=Better CREATININE, SERUM 0.60 mg/dL Range: 0.43-1.13=Better BUN:CREATININE RATIO 13 Better EST GFR, >60 ml/min Range: >60=Better EST GFR, NON-AFR TAIWANESE >60 ml/min Range: >60=Better Comments: EST GFR is reported in ml/min per 1.73 m2 of body surface area. For -Burmese, please multiple result by 1.2.----- GLUCOSE 125 mg/dL Range: 70-100=Above high threshold ALK PHOSPHATASE 82 U/L Range: 46-116=Better Comments: Please Note: New Reference Range effective 2013.----- TOTAL BILIRUBIN 0.80 mg/dL Range: 0.20-1.00=Better AST 18 U/L Range: 8-35=Better ALT 23 U/L Range: 12-78=Better ALBUMIN 3.1 g/dL Range: 3.4-5.0=Below low threshold TOTAL PROTEIN 6.8 g/dL Range: 6.4-8.2=Better A/G RATIO 0.8 units Range: 1.0-1.8=Below low threshold CALCIUM 9.0 mg/dL Range: 8.5-10.1=Better 11:10 MAGNESIUM 1260 MAGNESIUM 1.6 mg/dL Range: 1.8-2.4=Below low threshold 15-Nov-2013 12:35 CA 27.29 [id number] Comments: TESTING PERFORMED AT: [facility], [address] [place] [address], [place], [address], PHONE: , HOSE FINISHER: KALINA CYR MD CA 27.29 13.6 U/ML Range: 0.0-38.6=Better Comments: ANSELMO MOYA/ACS METHODOLOGY----- 30-Nov-2013 09:38 CP Echo Y Linked PDF Report Available for Review by Clicking ImageLink Button Better Plan of Care Instructions* Instructions not documented Planned Observations* Name Dates Details Planned Goals not documented Goal Planned Encounters* Appointment; Provider: Marito Nickerson On 23-Jun-2014 09:15 * Appointment; Provider: Jerod Paz On 23-Jun-2014 08:30 * Appointment; Provider: Sherry Mckeon On 09-Jan-2014 15:15 * Appointment; Provider: Kadeem Jade On 14-Dec-2013 09:30 * Appointment; Provider: Daniele Gil On [...] Sherry Mckeon On 08-Oct-2007 08:00 Instructions * No Known Instructions Encounters Appointment; Bird Reyes Encounter Diagnosis: Problem not [...] Reyes Encounter Diagnosis: Problem not documented On 03-Jun-2013 14:00 Appointment; Bird Reyes Encounter Diagnosis: Problem not [...] Problem not documented On 06-Apr-2013 10:00 Appointment; Talon May Encounter Diagnosis: Problem not documented On 04-Apr-2013 [...] Diagnosis: Problem not documented On 19-Jul-2012 11:30 Appointment; aMrito Nickerson Encounter Diagnosis: Problem not documented On 17-Jun-2012 08:45 Appointment; Maritza Morris Encounter Diagnosis: Problem not documented On 15-Jun-2012 08:30 Appointment; Maritza Morris Encounter Diagnosis: Problem not documented On 07-Jan-2012 09:00 Appointment; Sherry Mckeon Encounter Diagnosis: Problem not documented On 05-Jan-2012 10:30
--- OUTSIDE RECORDS SUMMARY | 2016-07-03 17:15 | XMS REPORT | Summary of Care ---
Author Author Sherry Mckeon M.D. Unknown Address [address] [place], [place] [id number] Phone Unavailable Care Team Providers Care Traffic Sign Erection Supervisor Name Role Phone Kadeem Jade M.D. Unavailable [...] Status: Active Lymphadenopathy (785.6, R59.1) Status: Active Malignant neoplasm of female breast (174.9, C50.919) Status: Active Actinic keratosis (702.0, L57.0) Status: Active Pseudophakia of right eye (V43.1, Z96.1) Status: Active Pseudophakia of left eye (V43.1, Z96.1) Status: Active Medications Name Dates Details Lisinopril [...] History of Lymphatic Surgery Intraoperative Identification Of [place] Node Completed:19-Oct-2012 History of Deep Axillary Lymph [...] Administered on:04-Jun-2009 Fluzone Intramuscular Injectable Lot #: [id number] Administered on:01-Jan-2010 Influenza Administered on:08-Nov-2011 Pneumo (Pneumovax) Lot #: [id number] Administered on:05-Jan-2012 Influenza Lot #: [id number] Administered on:20-Dec-2012 Fluzone Intramuscular Injectable Lot #: [id number] Administered on:09-Jan-2014 Prevnar 13 Intramuscular Suspension Lot #: [id number] Administered on:22-Jun-2014 Family History natural daughter* Name [...] Problem not documented On 18:15 Appointment; Jerod aPz Encounter Diagnosis: Problem not documented On 10:45 [...] Problem not documented On 18-Apr-2013 13:15 Appointment; August Encounter Diagnosis: Problem not documented On [...] not documented On 20-Dec-2012 10:30 Appointment; Sherry Mckoen Encounter Diagnosis: Problem not documented On 20-Dec-2012 [...] Problem not documented On 11-Nov-2012 13:15 Appointment; hSerry Mckeon Encounter Diagnosis: Problem not documented On 10-Nov-2012 09:00
--- OUTSIDE RECORDS SUMMARY | 2016-07-03 17:15 | XMS REPORT | Summary of Care ---
Author Author Sherry Mckeon M.D. Unknown Address [address] [place], [place] [id number] Phone Unavailable Care Team Providers Care Site Supervisor Name Role Phone Kadeem Jade M.D. [...] Postmenopausal status, age-related (V49.81, Z78.0) Status: Active Sinusitis (473.9, J32.9) Status: Active [...] TABLET DAILY. * Quantity: 180 Refills: 1 Mckeon, Sherry M.D.* Started 09-Jan-2014 ActiveZoledronic Acid 5 MG/100ML Intravenous Solution INFUSE 5MG INTRAVENOUSLY OVER 15 MINUTES DIRECTED. * Quantity: 1 Refills: 0 MckenoSherry M.D.* Started 22-Jun-2014 ActivePepcid 20 MG Oral [...] History of Lymphatic Surgery Intraoperative Identification Of [place] Node Completed:19-Oct-2012 History of Deep Axillary Lymph [...] Eye History of Cataract Extraction CP Echo Ordered:18-Jan-2015 Immunization Name Dates Details Diphtheria-Tetanus Toxoids 6.7-5 LFU/0.5ML Intramuscular Injectable Administered on:07-Jun-2006 Zoster (Zostavax) Administered on:04-Jun-2009 Fluzone Intramuscular Injectable Lot #: [id number] Administered on:01-Jan-2010 Influenza Administered on:08-Nov-2011 Pneumo (Pneumovax) Lot #: [id number] Administered on:05-Jan-2012 Influenza Lot #: [id number] Administered on:20-Dec-2012 Fluzone Intramuscular Injectable Lot #: [id number] Administered on:09-Jan-2014 Prevnar 13 Intramuscular Suspension Lot #: [id number] Administered on:22-Jun-2014 Family History natural daughter* Name [...] smoker Vital Signs Date Test Result Details 26-Jan-2015 14:18 BP Systolic 118 mm[Hg] Status: BP Diastolic 68 mm[Hg] Status: Heart Rate 69 /min Status: Weight 144 lb Status: O2 SAT 98 % Status: Body Mass Index Calculated 25.11 kg/m2 Status: Body Surface Area Calculated 1.69 m2 Status: Results Date Description Value Details 18-Jan-2015 12:24 CP Echo Y Linked PDF Report Available for Review by Clicking ImageLink Button ( Better) Plan of Care Planned Observations* Name Dates Details Planned Goals not documented Goal Planned Encounters* Appointment; Provider: Kadeem Jade On 19-Dec-2015 09:30 * Appointment; Provider: Ja Palacios On 13:00 * Appointment; Provider: Jerod Paz On 29-Jun-2015 08:30 * Appointment; Provider: Sherry Mckeon On 11-May-2015 09:00 * Appointment; Provider: Schedule Radiology On 06-Dec-2014 [...] Problem not documented On 26-Jun-2014 18:00 Appointment; Mariot Nickerson Encounter Diagnosis: Problem not documented On [...] Problem not documented On 18-Apr-2013 13:15 Appointment; May Hanley Encounter Diagnosis: Problem not documented On 06-Apr-2013 10:00 Appointment; May Hanley Encounter Diagnosis: Problem not documented On 04-Apr-2013 [...]
--- OUTSIDE RECORDS SUMMARY | 2016-07-03 17:15 | XMS REPORT | Summary of Care ---
Author Author Sherry Mckeon M.D. Unknown Address [address] [place], [place] [id number] Phone Unavailable Care Team Providers Care Marketing Analytics Specialist Name Role Phone Kadeem Jade M.D. Unavailable [...] History of Lymphatic Surgery Intraoperative Identification Of [place] Node Completed:19-Oct-2012 History of Deep Axillary Lymph [...] Administered on:04-Jun-2009 Fluzone Intramuscular Injectable Lot #: [id number] Administered on:01-Jan-2010 Influenza Administered on:08-Nov-2011 Pneumo (Pneumovax) Lot #: [id number] Administered on:05-Jan-2012 Influenza Lot #: [id number] Administered on:20-Dec-2012 Fluzone Intramuscular Injectable Lot #: [id number] Administered on:09-Jan-2014 Prevnar 13 Intramuscular Suspension Lot #: [id number] Administered on:22-Jun-2014 Family History natural daughter* Name [...] Problem not documented On 14:30 Appointment; Daniele Gli Encounter Diagnosis: Problem not documented On 10:00 [...]
--- OUTSIDE RECORDS SUMMARY | 2016-07-03 17:15 | XMS REPORT ---
Author Author GENERATED, SYSTEM Organization Unknown Address Unknown Phone Unavailable Care Team Providers Care Grout Worker Name Role Phone MD RUSSEL, GARRETT [phone] Reason For Visit Reason for Visit from 02/06/2015 1:41 PM:* Pt Stated Reason for Adm : Granix injection Chief Complaint D70.1, Z92.21 Social History Functional Status Functional Status from 03/08/2015 11:28 AM:* LOC : Alert * Oriented To : Person,Place,Time,Event Functional Status from 03/07/2015 10:30 AM:* LOC : Alert * Oriented To : Person,Place,Time Functional Status from 03/02/2015 9:24 AM:* LOC : Alert * Oriented To : Person,Place,Time Functional Status from 03/01/2015 9:10 AM:* LOC : Alert * Oriented To : Person,Place,Time Functional Status from 02/28/2015 9:34 AM:* LOC : Alert * Oriented To : Person,Place,Time,Event Functional Status from 02/27/2015 8:30 AM:* LOC : Alert * Oriented To : Person,Place,Time,Event Functional Status from 02/23/2015 10:16 AM:* LOC : Alert * Oriented To : Person,Place,Time,Event Functional Status from 02/22/2015 10:25 AM:* LOC : Alert * Oriented To : Person,Place,Time,Event Functional Status from 02/21/2015 2:28 PM:* LOC : Alert * Oriented To : Person,Place,Time,Event Functional Status from 02/16/2015 9:48 AM:* LOC : Alert * Oriented To : Person,Place,Time Functional Status from 02/15/2015 8:17 AM:* LOC : Alert * Oriented To : Person,Place,Time,Event Functional Status from 02/14/2015 9:05 AM:* LOC : Alert * Oriented To : Person,Place,Time,Event Functional Status from 02/13/2015 11:38 AM:* LOC : Alert * Oriented To : Person,Place,Time Functional Status from 02/09/2015 10:12 AM:* LOC : Alert * Oriented To : Person,Place,Time,Event Functional Status from 02/08/2015 8:33 AM:* LOC : Alert * Oriented To : Person,Place,Time,Event Functional Status from 02/06/2015 1:41 PM:* LOC : Alert * Oriented To : Person,Place,Time,Event Vital Signs Hospital Vital Signs from 03/08/2015 11:28 AM:* Height : 5/4 ft,in * Temperature : 96.5 F * Pulse : 62 * Respirations : 18 * BP : 147/60 Hospital Vital Signs from 03/07/2015 10:35 AM:* Height : 5/4 ft,in * Temperature : 97.4 F * Pulse : 61 * Respirations : 18 * BP : 143/65 Hospital Vital Signs from 03/02/2015 9:31 AM:* Height : 5/4 ft,in * Temperature : 97.8 F * Pulse : 65 * Respirations : 18 * BP : 136/68 Hospital Vital Signs from 03/01/2015 9:11 AM:* Height : 5/4 ft,in * Temperature : 97.8 F * Pulse : 62 * Respirations : 18 * BP : 122/57 Hospital Vital Signs from 02/28/2015 9:35 AM:* Height : 5/4 ft,in * Temperature : 97.8 F * Pulse : 67 * Respirations : 18 * BP : 135/64 Hospital Vital Signs from 02/27/2015 8:43 AM:* Height : 5/4 ft,in * Temperature : 97.2 F * Pulse : 56 * Respirations : 18 * BP : 133/69 Hospital Vital Signs from 02/23/2015 10:16 AM:* Height : 5/4 ft,in * Temperature : 96.1 F * Pulse : 64 * Respirations : 18 * BP : 136/66 Hospital Vital Signs from 02/22/2015 10:25 AM:* Height : 5/4 ft,in * Temperature : 98.9 F * Pulse : 64 * Respirations : 18 * BP : 115/65 Hospital Vital Signs from 02/16/2015 9:46 AM:* Height : 5/4 ft,in * Temperature : 98.2 F * Pulse : 70 * Respirations : 18 * BP : 112/59 Hospital Vital Signs from 02/15/2015 8:17 AM:* Height : 5/4 ft,in * Temperature : 97.5 F * Pulse : 62 * Respirations : 18 * BP : 124/60 Hospital Vital Signs from 02/13/2015 11:39 AM:* Height : 5/4 ft,in * Temperature : 98.9 F * Pulse : 59 * Respirations : 18 * BP : 152/68 Hospital Vital Signs from 02/09/2015 10:12 AM:* Height : 5/4 ft,in * Temperature : 97.8 F * Pulse : 66 * Respirations : 18 * BP : 110/66 Hospital Vital Signs from 02/08/2015 8:34 AM:* Height : 5/4 ft,in * Temperature : 97.3 F * Pulse : 69 * Respirations : 18 * BP : 113/57 Hospital Vital Signs from 02/07/2015 1:19 PM:* Height : 5/4 ft,in * Temperature : 97.1 F * Pulse : 82 * Respirations : 18 * BP : 119/53 Hospital Vital Signs from 02/06/2015 10:43 AM:* Height : 5/4 ft,in * Temperature : 96.9 F * Pulse : 63 * Respirations : 18 * BP : 135/71 Results Problems Encounter Diagnosis No relevant problems [...]
--- OUTSIDE RECORDS SUMMARY | 2016-07-03 17:15 | XMS REPORT | Summary of Care ---
Author Author Kadeem Jade M.D. Organization Unknown Address [address] [place], [place] [phone] Phone Unavailable Care Team Providers Care Service Support Representative Name Role Phone Kadeem Jade M.D. Unavailable [...] TAKE 1 TABLET DAILY. * Refills: 0 MckeonOha M.D.* Started 19-May-2013 ActiveDocusate Sodium 100 MG [...] Refills: 1 Ja Palacios M.D.* Started 11-Jul-2014 Active Allergies and Adverse Reactions Name Dates [...] History of Lymphatic Surgery Intraoperative Identification Of [place] Node Completed:19-Oct-2012 History of Deep Axillary Lymph [...] Administered on:04-Jun-2009 Fluzone Intramuscular Injectable Lot #: [id number] Administered on:01-Jan-2010 Influenza Administered on:08-Nov-2011 Pneumo (Pneumovax) Lot #: [id number] Administered on:05-Jan-2012 Influenza Lot #: [id number] Administered on:20-Dec-2012 Fluzone Intramuscular Injectable Lot #: [id number] Administered on:09-Jan-2014 Prevnar 13 Intramuscular Suspension Lot #: [id number] Administered on:22-Jun-2014 Family History natural daughter* Name [...] to report Results Date Description Value Details 12:13 Carbohydrate Antigen 19-9 [id number] Comments: Testing performed at: [facility], [address] [place] [address] [address], [place], [address], , Proposal Analyst: JAVON Brewer MD [place] 19-9 15 U/mL (Better) Range: 0-35 Comments: Micheal ECLIA methodology----- 17:37 CP Echo Y Linked PDF Report Available for Review by Clicking ImageLink Button ( Better) Plan of Care Planned Observations* Name Dates Details Planned Goals not documented Goal Planned Encounters* Appointment; Provider: Ja Palacios On 13:00 * Appointment; Provider: Jerod Paz On 29-Jun-2015 08:30 * Appointment; Provider: Kadeem Jade On 13-Dec-2014 09:30 * Appointment; Provider: Sherry Mckeon On 09-Nov-2014 09:30 * Appointment; Provider: Schedule Radiology On [...] Problem not documented On 19-Nov-2012 10:00 Appointment; Kademe Jade Encounter Diagnosis: Problem not documented On [...]
--- OUTSIDE RECORDS SUMMARY | 2016-07-03 17:15 | XMS REPORT ---
Author Author GENERATED, SYSTEM Organization Unknown Address Unknown Phone Unavailable Care Team Providers Care Supervisor Coffee Name Role Phone MD RUSSEL, GARRETT [phone] Reason For Visit Reason for Visit from 06/20/2016 1:14 PM:* Pt Stated Reason for Adm : Chemo induced nausea and vomiting Chief Complaint CHEMOTHERAPY INDUCED VOMITTING Social History Social History from 06/21/2016 10:03 AM:* Tobacco Use? : Current Everyday Smoker Social History from 06/20/2016 1:14 PM:* Tobacco Use? : Current Everyday Smoker Functional Status Functional Status from 06/21/2016 9:20 AM:* LOC : Alert * Oriented To : Person,Place,Time * Weight Bearing Status : Full * Assist Level : Partial * # Assists : 1 Functional Status from 06/21/2016 6:02 AM:* # Assists : 1 Functional Status from 06/21/2016 12:39 AM:* # Assists : 1 Functional Status from 06/20/2016 10:30 PM:* # Assists : 1 Functional Status from 06/20/2016 8:17 PM:* LOC : Alert * Oriented To : Person,Place,Time,Event * Weight Bearing Status : Full * Assist Level : Partial * # Assists : 1 Functional Status from 06/20/2016 1:14 PM:* LOC : Alert * Oriented To : Person,Place,Time,Event * Weight Bearing Status : Full * Assist Level : Partial * # Assists : 1 Vital Signs Hospital Vital Signs from 06/21/2016 7:08 AM:* Height : 5/4 ft,in * Pulse : 60 * Respirations : 18 * BP : 130/72 Hospital Vital Signs from 06/20/2016 9:38 PM:* Height : 5/4 ft,in * Temperature : 97.0 F * Pulse : 68 * Respirations : 20 * BP : 178/73 Hospital Vital Signs from 06/20/2016 3:17 PM:* Height : 5/4 ft,in * Temperature : 99.0 F * Pulse : 72 * Respirations : 18 * BP : 122/58 Hospital Vital Signs from 06/20/2016 2:46 PM:* Height : 5/4 ft,in * Temperature : 98.1 F * Pulse : 74 * Respirations : 18 * BP : 138/66 Hospital Vital Signs from 06/20/2016 1:14 PM:* Weight : 52/ kg * Height : 5/4 ft,in Hospital Vital Signs from 06/20/2016 1:06 PM:* Height : 5/4 ft,in * Temperature : 97.0 F * Pulse : 80 * Respirations : 18 * BP : 129/71 Results Chemistry from 06/20/2016 6:36 PMSODIUM 130 MMOL/L L (136-145 MMOL/L) POTASSIUM 3.7 MMOL/L (3.5-5.1 MMOL/L) CHLORIDE 98 MMOL/L (98-107 MMOL/L) TCO2 23.7 MMOL/L (21.0-32.0 MMOL/L) *ANION GAP 8.3 MMOL/L (8.0-16.0 MMOL/L) BUN 19 MG/DL H (7-18 MG/DL) CREATININE 0.65 MG/DL (0.55-1.02 MG/DL) *BUN/CREATININE RATIO 29.2 H (9.1-17.0 ) GLUCOSE 137 MG/DL H (65-99 MG/DL) CALCIUM 8.2 MG/DL L (8.5-10.1 MG/DL) Hematology from 06/20/2016 6:36 PMHEMOGLOBIN 10.7 G/DL L (11.0-14.3 G/DL) Problems Encounter Diagnosis * Nausea & Vomiting Status:Active. * Skin Integrity Impairment Risk Status:Active. Additional Problems * Abdominal Aortic Aneurysm Comment:Problem [...] Workflow upon Discharge, Status:Resolved. Encounters Encounter Diagnosis * Nausea & Vomiting Status:Active. * Skin Integrity Impairment Risk Status:Active. Plan of Care Treatment Plan from 06/21/2016 11:00 AM:* Care Management Note : BODY,TD,TH, BUTTON,INPUT,SELECT,TEXTAREA{FONT-SIZE: 10pt; FONT-FAMILY: Icard,Helvetica; COLOR: black;} P,DIV,UL,OL,BLOCKQUOTE{MARGIN-BOTTOM: 0px; MARGIN-TOP: 0px;} BODY {MARGIN: 5px;} Patient has improved and will discharge to home. SW notified of plan. Treatment Plan from 06/20/2016 4:33 PM:* Care Management Note : BODY,TD,TH,BUTTON ,INPUT,SELECT,TEXTAREA{FONT-SIZE: 10pt; FONT-FAMILY: Icard,Helvetica; COLOR: black;} P,DIV,UL,OL,BLOCKQUOTE{MARGIN-BOTTOM: 0px; MARGIN-TOP: 0px;} BODY{MARGIN : 5px;} Patient is Outpatient Observation status in a medical bed. Patient was seen in ER with complaints of chemo induced N/V. Patient's last chemo was 06/16. POC currently includes home medications PO, NS+20KCl@100, promethazine IV x1, PRN Zofran and reglan, and clear liquid diet- advanced to regular this AM. Abnormal labs are noted. VSS on RA at this time. Abdominal series shows moderate to marked fluid-filled distention of the stomach. SW notified of POC. Care Management will continue to follow. Patient remains Outpatient Observation status appropriate at this time. Procedures * Completed Procedure Code: 00.00 Procedure [...] or ordered. Hospital Course Hospital Discharge Instructions How to care for yourself at home from 06/21/2016 10:03 AM:* Discharge Activity : Activity as tolerated * Discharge Diet : Modification as given by physician * Discharge Diet: : low sodium * Call your doctor if: : Fever over 101 F or severe chills,Chest pain or other unexplained symptoms,Tingling or numbness develops,A sudden increase or decrease in weight,You have persistent or worsening symptoms * Specific Discharge Teaching Instructions provided: : No * Discharge on Warfarin : No Allergies, Adverse Reactions, Alerts This section is sales representative electric service of the current allergy information, at the time of the CCD generation. In the case of regeneration of the CCD, the allergy information may not reflect the state of known allergies at the time of the CCD' s subject visit. * NSAIDS (Non-Steroidal Anti-Inflammatory Drug) causes unspecified. * aspirin causes unspecified. * Penicillins causes "voice changed". * morphine causes Nausea. * No Latex Allergy. * No IV Contrast Allergy. * No Known Food Allergies. Medication It is the responsibility of the patient or patient sales representative electric service to confirm the list of medications with either the patient's personal care provider or the patient's follow-up care provider to ensure the patient has an appropriate list of medications to take at home. Discharge medications Continued medications* ascorbic acid (vitamin C) (Vitamin C) 500 mg Tablet, Ordered By: PARVEEN NORIEGA DO Directions: 1 tablet oral daily * docusate sodium 100 mg Capsule, Ordered By: PARVEEN NORIEGA DO Directions: 1 capsule oral daily * biotin 5 mg Tablet, Ordered By: PARVEEN NORIEGA DO Directions: 1 tablet oral daily * atorvastatin 20 mg Tablet, Ordered By: PARVEEN NORIEGA DO Directions: 1 tablet oral daily * lisinopril 20 mg Tablet, Ordered By: PARVEEN NORIEGA DO Directions: 1 tablet oral daily * metoprolol tartrate 25 mg Tablet, Ordered By: PARVEEN NORIEGA DO Directions: 0.5 tablet oral twice a day * vitamin D 1000 units oral tablet daily * lutein 20 mg Tablet, Ordered By: PARVEEN NORIEGA DO Directions: 1 tablet oral daily * loratadine (Claritin) 10 mg Tablet, Ordered By: PARVEEN NORIEGA DO Directions: 1 tablet oral daily PRN nasal congestion Changed medications* aspirin 81 mg tablet,chewable, Ordered By: PARVEEN NORIEGA DO Directions: 1 tablet oral daily every morning * pantoprazole 40 mg tablet,delayed release (/EC), Ordered By: PARVEEN NORIEGA DO Directions: 1 tablet oral daily before breakfast Stopped medications* None
--- OUTSIDE RECORDS SUMMARY | 2016-07-03 17:16 | XMS REPORT ---
Author Author GENERATED, SYSTEM Organization Unknown Address Unknown Phone Unavailable Care Team Providers Care Sandwich Wrapper Name Role Phone MD RUSSEL, GARRETT [phone] Reason For Visit Reason for Visit from 01/02/2015 11:20 AM:* Pt Stated Reason for Adm : Neupogen Chief Complaint C50.811 Social History Functional Status Functional Status from 01/04/2015 9:14 AM:* LOC : Alert * Oriented To : Person,Place,Time,Event Functional Status from 01/03/2015 9:43 AM:* LOC : Alert * Oriented To : Person,Place,Time Functional Status from 01/02/2015 11:20 AM:* LOC : Alert * Oriented To : Person,Place,Time,Event Vital Signs Hospital Vital Signs from 01/04/2015 9:14 AM:* Height : 5/4 ft,in * Temperature : 97.8 F * Pulse : 63 * Respirations : 18 * BP : 144/71 Hospital Vital Signs from 01/03/2015 9:45 AM:* Height : 5/4 ft,in * Temperature : 98.3 F * Pulse : 60 * Respirations : 18 * BP : 132/63 Hospital Vital Signs from 01/02/2015 11:19 AM:* Height : 5/4 ft,in * Temperature : 98.2 F * Pulse : 64 * Respirations : 18 * BP : 152/64 Results Problems Encounter Diagnosis No relevant problems [...]
--- OUTSIDE RECORDS SUMMARY | 2016-07-03 17:16 | XMS REPORT | Summary of Care ---
Author Author Sherry Mckeon M.D. Unknown Address [address], [place] [id number] Phone Unavailable Care Team Providers Care Atmospheric Physics Professor Name Role Phone Kadeem Jade M.D. [...] Active WBC decreased (288.50, D72.819) Status: Active Current every day smoker (305.1, F17.200) Status: Active Duodenal ulcer (532.90, K26.9) Status: Active Actinic keratosis (702.0, L57.0) Status: Active History of squamous cell carcinoma of skin (V10.83, Z85.828) Status: Active Essential hypertension (401.9, I10) Status: Active Hypercholesterolemia (272.0, E78.0) Status: Active CAD S/P percutaneous coronary angioplasty (414.01, I25.10) Status: Active Osteoporosis (733.00, M81.0) Status: Active Malignant neoplasm of female breast (174.9, C50.919) Status: Active H/O endovascular stent graft for abdominal aortic aneurysm (V43.4, Z95.828) Status: Active Tobacco abuse counseling (V65.42, Z71.6) [...] History of Lymphatic Surgery Intraoperative Identification Of [employer] Node Completed:19-Oct-2012 History of Deep Axillary Lymph [...] Administered on:04-Jun-2009 Fluzone Intramuscular Injectable Lot #: [id number] Administered on:01-Jan-2010 Influenza Administered on:08-Nov-2011 Pneumo (Pneumovax) Lot #: [id number] Administered on:05-Jan-2012 Influenza Lot #: [id number] Administered on:20-Dec-2012 Fluzone Intramuscular Injectable Lot #: [id number] Administered on:09-Jan-2014 Prevnar 13 Intramuscular Suspension Lot #: [id number] Administered on:22-Jun-2014 Family History natural daughter* Name [...] ml/min (Better) Range: >60 EST GFR, NON-AFR CYPRIOT >60 ml/min (Better) Range: >60 Comments: EST GFR is reported in ml/min per 1.73 m2 of body surface area. For -Filipino, please multiple result by 1.2.----- GLUCOSE 90 [...]
[2016-07-03 17:17] VITALS: Ht 160 cm; Wt 56.2 kg
[2016-07-03] MEDS: NORMAL SALINE 1,000 ML IV SCH (17:46)
[2016-07-03 18:02] LABS: BLOOD, URINE 2+ (NEGATIVE); COLOR,URINE YELLOW (YELLOW); LEUKOCYTE ESTERASE ,URINE 1+ (NEGATIVE); NITRITE,URINE NEGATIVE (NEGATIVE); UROBILINOGEN,URINE 0.2 EU/DL (NORMAL)
[2016-07-03 18:10] LABS: RBC,URINE 0-1 /HPF (0-3); SQUAMOUS EPITHELIAL CELL,UR NONE SEEN
[2016-07-03 18:11] LABS: BACTERIA,URINE NONE SEEN (NEGATIVE)
--- NOTE | 2016-07-03 18:31 | NUR ---
admit Pt to room at 1710 from [facility] via WC. PAC already accessed by [facility]. Flushed and new IVF started. Pt denies pain, ambulating well in room, denies dizziness. HX taken and made comfortable.
--- NOTE | 2016-07-03 18:48 | NUR ---
diet Verbal from dr Garza that pt can order dinner before kitchen closes and eat it after CT. Put reg diet order.
[2016-07-03] MEDS ORDERED: LORA10TA62 PO (18:57)
[2016-07-03] MEDS ORDERED: ATOR20TA PO (18:57)
[2016-07-03] MEDS ORDERED: METO25TA6 PO (18:57)
[2016-07-03] MEDS ORDERED: LISI-621 PO (18:57)
[2016-07-03] MEDS ORDERED: ASPI81TA2 PO (18:57)
--- NOTE | 2016-07-03 19:09 | HPPDOC ---
HPI - Adult Date DATE: 07/03/16 TIME: 19:03 General Chief Complaint: nausea/vomiting 2 weeks History of Present Illness Mrs. 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 She has been receiving chemotherapy with Herceptin and PERJETA since October 2014. She has tolerated therapy well but over the past 2 weeks she developed recurring episodes of nausea, vomiting, and dry heaves. She denies hematemesis or coffee-ground emesis. She has not had bilious emesis. Vomiting is been somewhat cyclic occur about every other day and she's generally been able to maintain good intake of liquids with small amounts of foods on alternate days. She was seen in the [place] emergency room about a week ago and kept overnight for IV fluids and subsequently saw her primary care physician earlier this week for a physical but no further interventions were felt necessary at that time. Patient reports that she consistently feels better after she vomits due to a sense of general unease and nausea which is relieved. She tried taking prescribed nausea medications on one occasion which relieved symptoms for about 4 hours but was then followed by vomiting and subsequently she has not continued to use it. She denies diarrhea, dizziness, fevers, or chills. Urine output has been good and she is not noted change in color or decreased frequency. She was seen by Dr. Teague the office today due to persistent GI symptoms or she was found to be orthostatic and hyponatremic. She is hospitalized now for continuation of fluids and further assessment. 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 Hyperlipidemia Hypertension Coronary artery disease with stent History peptic ulcer disease with major GI bleed requiring surgery Surgical History Patient's Surgical History: Laparotomy for GI bleed Bilateral mastectomies October 2012 Right TKA AAA stent graft Cataracts Current Medications Home Meds Reported Medications Zoledronic Acid/Mannitol&Water (Zoledronic Acid 5 mg/100 ml) 5 Mg/100 Ml Piggyback, 1 07/03/16 Zoledronic Acid (Zoledronic Acid) 4 Mg Vial, 1 IVP 07/03/16 Biotin (Biotin) 2,500 Mcg Capsule, 2 PO DAILY 07/03/16 Cholecalciferol (Vitamin D3) (Vitamin D-3) 2,000 Unit Capsule, 1 PO DAILY 07/03/16 Multivitamin (Multi Vitamin Daily) 1 Each Tablet, 1 PO DAILY 07/03/16 Ascorbic Acid (Vitamin C) 500 Mg Tablet, 1 TAB PO DAILY, TAB 07/03/16 Guaifenesin (Guaifenesin) 400 Mg Tablet, 400 MG PO BID 07/03/16 Docusate Sodium (Docusate Sodium) 250 Mg Capsule, 1 CAP PO BID Y for PRN ORDERS , CAP 07/03/16 Pantoprazole Sodium (Protonix) 40 Mg Tablet.dr, 40 MG PO ACB for ACID REFLUX, TAB Take 1 tablet, by mouth, one time a day before breakfast. 07/03/16 Atorvastatin Calcium (Lipitor) 20 Mg Tablet, 1 TAB PO HS, TAB 07/03/16 Lisinopril (Lisinopril) 20 Mg Tablet, 20 MG PO HS, TAB 07/03/16 Loratadine (Claritin) 10 Mg Tablet, 10 MG PO HS 07/03/16 Aspirin (Aspirin) 81 Mg Tab.chew, 1 TAB PO HS, #30 TAB 3 Refills 07/03/16 Metoprolol Tartrate (Metoprolol Tartrate) 25 Mg Tablet, 12.5 MG PO BIDWM, TAB Take 1 tab, by mouth, two time a day with meals. 07/03/16 Allergies: Coded Allergies: morphine (Verified Allergy, Intermediate, VOMITING, 07/03/16) Penicillins (Verified Allergy, Mild, 07/03/16) voice change Family History Family History: Maternal grandmother of pancreatic cancer Mother-CHF Father-CAD Social History Smoking Status: Current every day smoker (one half pack per day) Does patient use chewing tobac: No Substance Use Type: does not use Alcohol Intake: a few times a month Marital Status: Current Occupational Status: retired (x-ray tech/certified chief technology officer) Advance Directives: Yes DPOA for Healthcare Only (sister Staci Mcnair and daughter Yuliana Giang), Yes Full Code Social History Comments PCP-Sherry Mckeon Oncologist-Bernardino Teague Review of Systems All Other Systems Comments Comprehensive review of systems completed with patient describing congestion/ fullness in her ears which she is scheduled follow-up with ENT in the near future. She describes being more fatigued recently and having less get up and go. She bruises easily. Remainder of review is as noted in the history of present illness or negative. Physical Exam General Vital Signs Temperature 98.6, standing blood pressure 160/75 with pulse 73, standing blood pressure 114/71 with pulse 77 EXAM: General-NAD, alert, fluent speech, cooperative HEENT-PERRL, EOMI without nystagmus, conjugate gaze, facial structures symmetric , oropharynx clear, neck supple and without adenopathy anterior chain or supraclavicularly Lungs-respirations nonlabored, good airflow, breath sounds clear anteriorly and laterally Cardiac-regular rhythm, S1-S2, 2/6 systolic murmur right upper sternal border Abd-soft, nontender, without discrete palpable mass, bowel sounds present although diminished Ext-without edema Skin-without hyperpigmentation or generalized rash, small scattered bruises on the forearms Neuro-cranial nerves II through XII intact, motor tone and power within normal limits, no tremor, sensation intact to touch in the forearms and shins Psych-calm, pleasant, euthymic Height (Feet): 5 Height (Inches): 3.00 Neurologic RN Documented GCS Eye Opening: Verbal: Motor: Total: Laboratory Laboratory Tests Test 07/03/16 17:46 Urine Collection Type Cleancatch-midstream Urine Color Yellow Urine Turbidity Clear Urine pH 6.0 Urine Specific [place] 1.015 Urine Protein Negative Urine Glucose (UA) Negative Urine Ketones Negative Urine Blood 2+ Urine Nitrite Negative Urine Bilirubin Negative Urine Urobilinogen 0.2EU/DL Urine Leukocyte Esterase 1+ Urine RBC 0-1/HPF Urine WBC 1-3/HPF Urine Squamous Epithelial Cells None seen Urine Amorphous Urates Few Urine Bacteria None seen Urine Culture Indicated Cult not indicated Prior to admission data obtained in the office include white count 11.5, hemoglobin 11.0 and platelet count 269,000. Sodium 127 (down from 138 on 06/16), BUN 15, creatinine 0.5, liver enzymes unremarkable with LDH 259. Radiology CT abdomen/pelvis pending Assessment & Plan Assessment Intractable nausea/vomiting Orthostatic hypotension Dehydration Hyponatremia Metastatic breast cancer Hypertension Hyperlipidemia Normocytic anemia Mrs. Vidales presents with recurrent nausea/vomiting having required IV fluids overnight previously at the [facility]. She's developed hyponatremia in conjunction with GI symptoms although creatinine has remained relatively stable and urine is negative for ketones. She is significantly orthostatic. IV fluids will be continued for hydration. Case has been discussed with Dr. Teague. CT of the abdomen and pelvis has been scheduled with contrast to evaluate extent of adenopathy and determine if there is partial small bowel obstruction contributing to persistent symptoms. Limited home medications will be utilized and patient will be allowed to eat as tolerated. Antiemetics are available if needed. Plan/Intensity of Service Discussed with Dr. Teague, CT abdomen pelvis/ordered, outpatient labs earlier today reviewed. Office records reviewed. Code Status Full Code Hospital Course Summary Disclaimer The hospital course summary below is not to be considered part of the above Progress Note. Hospital Course Summary 07/03/16 Mrs. Vidales presents with recurrent nausea/vomiting having required IV fluids overnight previously at the [facility]. She's developed hyponatremia in conjunction with GI symptoms although creatinine has remained relatively stable and urine is negative for ketones. She is significantly orthostatic. IV fluids will be continued for hydration. Case has been discussed with Dr. Teague. CT of the abdomen and pelvis has been scheduled with contrast to evaluate extent of adenopathy and determine if there is partial small bowel obstruction contributing to persistent symptoms. Limited home medications will be utilized and patient will be allowed to eat as tolerated. Antiemetics are available if needed. BRADY RAMÍREZ MD Jul 03, 2016 19:07
[2016-07-03] MEDS ORDERED: PANT40TA PO (19:41)
[2016-07-03] MEDS ORDERED: GUAI400T65 PO (19:41)
[2016-07-03] MEDS ORDERED: DOCU250C77 PO (19:41)
[2016-07-03] MEDS ORDERED: CHOL200026 PO (19:47)
[2016-07-03] MEDS ORDERED: MULT-1198 PO (19:47)
[2016-07-03] MEDS ORDERED: ASCO500T9 PO (19:47)
[2016-07-03] MEDS ORDERED: BIOT25008 PO (19:55)
[2016-07-03] MEDS ORDERED: ZOLE4VIA IVP (19:55)
[2016-07-03] MEDS ORDERED: [UNRECOGNIZED DRUG - CODE] (19:55)
[2016-07-03] MEDS ORDERED: IOHEXOL 300 MG/ML 75ml INJECTION ONE (20:47)
[2016-07-03] MEDS ORDERED: NORMAL SALINE 100 ML ONE (20:47)
[2016-07-03] MEDS ORDERED: SALINE FLUSH 10ml SYRINGE ONE (20:47)
[2016-07-03] MEDS ORDERED: ONDANSETRON ODT 4 MG TAB PO PRN (22:00)
[2016-07-03] MEDS ORDERED: ASPIRIN 81 MG CHEWABLE TABLET PO SCH (22:00)
[2016-07-03] MEDS ORDERED: ONDANSETRON 4mg/2ml INJECTION IV PRN (22:00)
[2016-07-03] MEDS ORDERED: ATORVASTATIN 20 MG TABLET PO SCH (22:00)
[2016-07-03] MEDS ORDERED: METOCLOPRAMIDE 10mg/2ml INJECTION IV PRN (22:00)
[2016-07-03] MEDS ORDERED: LORATADINE 10 MG TABLET PO SCH (22:00)
[2016-07-04 00:03] VITALS: BP 140/67; PULSE 71
[2016-07-04 00:04] VITALS: BP_SYST 112; BP_SYST 131; BP_DIAS 60; BP_DIAS 66; PULSE 74; PULSE 75
[2016-07-04 00:05] VITALS: BP 140/67; PULSE 71; RESP 16; TEMP 96.7; O2SAT 91
[2016-07-04] MEDS: NORMAL SALINE 1,000 ML IV SCH ×2 (02:24→12:18)
--- NOTE | 2016-07-04 04:02 | NUR ---
SUMMARY PT IS ALERT AND ORIENTED. DENIES PAIN. HAS NOT HAD ANY NAUSEA OR VOMITING THIS SHIFT. PT IS STEADY ON FEET. PT DID NOT WANT TO TAKE HER MEDICATION LAST NIGHT, SHE STATED "I JUST WANT TO GO TO SLEEP". SHE DID FINALLY EAT HER DINNER AT 0300. GOOD OUT PUT THIS SHIFT.
[2016-07-04 05:22] LABS: BASOPHILS % (AUTO) 0.2 % (0-2); HCT - HEMATOCRIT 26.4 % (36-46); IMMATURE GRANULOCYTE # (AUTO) 0.01 T/MM3 (0.00-0.03); IMMATURE GRANULOCYTE % (AUTO) 0.2 % (0.0-0.5); LYMPHOCYTES # (AUTO) 0.8 T/MM3 (1-4.8); LYMPHOCYTES % (AUTO) 12.8 % (23-45); MEAN CORPUSCULAR HGB 33.3 UUG (26-34); MEAN CORPUSCULAR HGB CONC(MCHC 34.1 GM/DL (31-37); MEAN CORPUSCULAR VOLUME 97.8 UM3 (80-100); MEAN PLATELET VOLUME 9.3 UM3 (9.4-12.4); MONOCYTES # (AUTO) 0.7 T/MM3 (0-0.8); MONOCYTES % (AUTO) 11.6 % (0-9.0); NEUTROPHILS #(AUTO)-ABSOLUTE 4.8 T/MM3 (1.8-7.7); NEUTROPHILS % (AUTO) 75.2 % (33-66); WBC - WHITE BLOOD COUNT 6.3 T/MM3 (4.5-11.0)
[2016-07-04 05:42] LABS: ALBUMIN 2.5 G/DL (3.5-5.0); ANION GAP 7 MEQ/L (5-15); BUN/CREATININE RATIO 20 RATIO (6-26); CALCIUM 8.2 MG/DL (8.4-10.2); CHLORIDE 100 MEQ/L (98-107); CO2 - CARBON DIOXIDE 23 MEQ/L (22-30); CREATININE 0.5 MG/DL (0.7-1.2); GLOMERULAR FILTRATION RATE 121; GLUCOSE 108 MG/DL (65-110); MAGNESIUM 1.9 MG/DL (1.6-2.3); PHOSPHORUS 2.3 MG/DL (2.5-4.5); POTASSIUM 3.5 MEQ/L (3.6-5); SODIUM 130 MEQ/L (134-144)
[2016-07-04] MEDS ORDERED: PANTOPRAZOLE 40 MG TABLET PO SCH (06:30)
[2016-07-04 08:00] VITALS: BP 136/66; PULSE 65; RESP 16; TEMP 97.7; O2SAT 92
--- NOTE | 2016-07-04 09:05 | CONSPD ---
DERIC LEMUS SERVICE PLANNER 07/04/16 0853: Consultation Info Date DATE: 07/04/16 TIME: 08:49 Date of Consultation: Jul 04, 2016 Attending Physician: Dr. Zavaleta Reason for Consultation: metastatic breast cancer HPI - Adult Date DATE: 07/04/16 TIME: 08:49 General Chief Complaint: nausea/vomiting 2 weeks History of Present Illness Well-known patient of Dr. Teague'zohaib with history of metastatic breast cancer, ER/ [place] negative, HER- 2 positive, currently on chemotherapy with Perjeta and Herceptin, presented to our clinic yesterday with acute illness with nausea, vomiting/dry heaves, and weakness. Symptoms have occurred intermittently for the past 2 weeks. She had overnight admission to [facility] 06/20/2016. Received IV fluids/antiemetics and symptoms improved briefly. Had a physical exam with her PCP one week ago and was feeling okay then. States day after her physical, the nausea/vomiting recurred, intermittent with increased intensity yesterday. Has felt weak, sleeping often. Denies diarrhea, no abdominal pain. Denies headache, vision changes, no fever or chills. Was noted to be significantly orthostatic at her visit yesterday, IV fluids initiated with Zofran and hospitalist was called, patient admitted for further evaluation and symptom management. At time of intake, she is alone in the room, eating breakfast. Alert and oriented, pleasant affect and states feels 90% improved. No further nausea, emesis, dry heaves since yesterday afternoon. Minimal, small amounts soft stool , no overt diarrhea. No abdominal pain. No fever, chills, night sweats. She is anxious for results of CAT scan done yesterday PM; report pending at time of intake. 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 Hyperlipidemia Hypertension Coronary artery disease with stent History peptic ulcer disease with major GI bleed requiring surgery Surgical History Patient's Surgical History: Laparotomy for GI bleed Bilateral mastectomies October 2012 Right TKA AAA stent graft Cataracts Current Medications Home Meds Reported Medications Zoledronic Acid/Mannitol&Water (Zoledronic Acid 5 mg/100 ml) 5 Mg/100 Ml Piggyback, 1 07/03/16 Zoledronic Acid (Zoledronic Acid) 4 Mg Vial, 1 IVP 07/03/16 Biotin (Biotin) 2,500 Mcg Capsule, 2 PO DAILY 07/03/16 Cholecalciferol (Vitamin D3) (Vitamin D-3) 2,000 Unit Capsule, 1 PO DAILY 07/03/16 Multivitamin (Multi Vitamin Daily) 1 Each Tablet, 1 PO DAILY 07/03/16 Ascorbic Acid (Vitamin C) 500 Mg Tablet, 1 TAB PO DAILY, TAB 07/03/16 Guaifenesin (Guaifenesin) 400 Mg Tablet, 400 MG PO BID 07/03/16 Docusate Sodium (Docusate Sodium) 250 Mg Capsule, 1 CAP PO BID Y for PRN ORDERS , CAP 07/03/16 Pantoprazole Sodium (Protonix) 40 Mg Tablet.dr, 40 MG PO ACB for ACID REFLUX, TAB Take 1 tablet, by mouth, one time a day before breakfast. 07/03/16 Atorvastatin Calcium (Lipitor) 20 Mg Tablet, 1 TAB PO HS, TAB 07/03/16 Lisinopril (Lisinopril) 20 Mg Tablet, 20 MG PO HS, TAB 07/03/16 Loratadine (Claritin) 10 Mg Tablet, 10 MG PO HS 07/03/16 Aspirin (Aspirin) 81 Mg Tab.chew, 1 TAB PO HS, #30 TAB 3 Refills 07/03/16 Metoprolol Tartrate (Metoprolol Tartrate) 25 Mg Tablet, 12.5 MG PO BIDWM, TAB Take 1 tab, by mouth, two time a day with meals. 07/03/16 Allergies: Coded Allergies: morphine (Verified Allergy, Intermediate, VOMITING, 07/03/16) Penicillins (Verified Allergy, Mild, 07/03/16) voice change Family History Family History: Maternal grandmother of pancreatic cancer, one first cousin with sarcoma, age 83 at diagnosis, another cousin with bone cancer Mother-CHF Father-CAD Social History Smoking Status: Current every day smoker (one half pack per day) Does patient use chewing tobac: No Substance Use Type: does not use Alcohol Intake: a few times a month Marital Status: Current Occupational Status: retired (x-ray tech/certified automotive technician) Advance Directives: Yes DPOA for Healthcare Only (sister Stcai Mcnair and daughter Yuliana Giang), Yes Full Code Review of Systems Constitutional: REPORTS: appetite decrease, weakness, DENIES: chills, fever ENMT Ears: DENIES: pain Mouth/Throat: DENIES: sore throat Cardiovascular dyspnea on exertion (mild), DENIES: chest pain Pulmonary Respiratory: cough (frequent, nonproductive. Unchanged), DENIES: dyspnea GI Upper Abdomen: nausea, vomiting Lower Abdomen: DENIES: blood in stool, constipation, diarrhea General: DENIES: dysuria, frequency, hematuria, urgency Musculoskeletal General: weakness, DENIES: joint pain Integumentary Skin: DENIES: rash, sores Breasts: other (history bilateral mastectomy) Neurological General: DENIES: fainting, headache Psychiatric Psychiatric: anxiety (related to breast cancer, disease process.), DENIES: depression Endocrine DENIES: heat/cold intolerance Physical Exam General General Nourishment: well nourished, well developed Vital Signs Vital Signs Date Time Temp Pulse Resp B/P Pulse Ox O2 Delivery O2 Flow Rate FiO2 07/04/16 00:05 96.7 71 16 140/67 91 Room Air Height (Feet): 5 Height (Inches): 3.00 Eyes Brief: FOUND: EOMI, NOT FOUND: scleral icterus ENMT Brief: FOUND: mucosa moist, NOT FOUND: nasal exudate Neck Brief: NOT FOUND: adenopathy, tenderness Neck Neck: NOT FOUND: adenopathy Respiratory Brief: FOUND: equal bilaterally, other (diminished breath sounds bilateral posterior.), NOT FOUND: rales, wheezes Cardiovascular (brief) Cardiac Brief: FOUND: regular rate, regular rhythm, NOT FOUND: pedal edema Abdomen (brief) Abdominal Brief: FOUND: BS normo active x4, soft, NOT FOUND: hepatosplenomegaly , tender Musculoskeletal (brief) Musculoskeletal Brief: NOT FOUND: loss of motion, tenderness Integumentary (brief) Integumentary Brief: FOUND: dry, warm, NOT FOUND: rash Neurologic (brief) Neurological Brief: FOUND: cranial 2-12 intact, motor (no acute motor deficit) Neurologic RN Documented GCS Eye Opening: Verbal: Motor: Total: Psychiatric (brief) FOUND: alert, attentive, normal affect, oriented Laboratory Laboratory Tests Test 07/03/16 17:46 07/04/16 04:36 Urine Collection Type Cleancatch-midstream Urine Color Yellow Urine Turbidity Clear Urine pH 6.0 Urine Specific [place] 1.015 Urine Protein Negative Urine Glucose (UA) Negative Urine Ketones Negative Urine Blood 2+ Urine Nitrite Negative Urine Bilirubin Negative Urine Urobilinogen 0.2EU/DL Urine Leukocyte Esterase 1+ Urine RBC 0-1/HPF Urine WBC 1-3/HPF Urine Squamous Epithelial Cells None seen Urine Amorphous Urates Few Urine Bacteria None seen Urine Culture Indicated Cult not indicated White Blood Count 6.3T/MM3 Red Blood Count 2.70M/MM3 Hemoglobin 9.0GM/DL Hematocrit 26.4% Mean Corpuscular Volume 97.8UM3 Mean Corpuscular Hemoglobin 33.3UUG Mean Corpuscular Hemoglobin Concent 34.1GM/DL RDW Standard Deviation 43.8FL Platelet Count 234T/MM3 Mean Platelet Volume 9.3UM3 Immature Granulocyte % (Auto) 0.2% Neutrophils (%) (Auto) 75.2% Lymphocytes (%) (Auto) 12.8% Monocytes (%) (Auto) 11.6% Eosinophils (%) (Auto) 0.0% Basophils (%) (Auto) 0.2% Absolute Immature Granulocyte (auto 0.01T/MM3 Absolute Neutrophils (auto) 4.8T/MM3 Absolute Lymphocytes (auto) 0.8T/MM3 Absolute Monocytes (auto) 0.7T/MM3 Absolute Eosinophils (auto) 0.0T/MM3 Absolute Basophils (auto) 0.0T/MM3 Turbidity < 20 Sodium Level 130MEQ/L Potassium Level 3.5MEQ/L Chloride Level 100MEQ/L Carbon Dioxide Level 23MEQ/L Anion Gap 7MEQ/L Blood Urea Nitrogen 10.0MG/DL Creatinine 0.5MG/DL Glomerular Filtration Rate Calc 121 BUN/Creatinine Ratio 20RATIO Glucose Level 108MG/DL Calculated Osmolality 251MOSM/KG Calcium Level 8.2MG/DL Phosphorus Level 2.3MG/DL Magnesium Level 1.9MG/DL Icterus Index < 2 Albumin 2.5G/DL Chemistry Specimen Hemolysis < 15 Impression/Recommendation Impression 1. Metastatic breast cancer, current treatment Herceptin/Perjeta, last received 06/16/16. 2. Intractable nausea/vomiting, dehydration. Improved. 3. Orthostatic hypotension on admission. Symptoms persist, but mild. Last blood pressure 131/66 sitting, 112/60 standing. 4. Tobacco addiction Recommendation Continue supportive care, monitor counts. Await results of CT and will discuss with patient. Dr. Teague will see later today. Discussed stopping smoking; patient remains resistant to discussing. Has decreased intake, currently at less than 5 per day. Has previously used nicotine patch, feels the patch helps but previously continued to smoke with nicotine patch and I told patient should not smoke and use nicotine patches. Patient was going to keep a diary, but has been ill intermittently since last office visit. Continued to encourage abstinence. Consider using nicotine patch, but must limit smoking with patch. Okay if has one or 2 cigarettes, but no more than that with patch; would use lower dose patch. YOLANDA TEAGUE 07/04/16 6844: Past Medical History Current Medications Home Meds Reported Medications Zoledronic Acid/Mannitol&Water (Zoledronic Acid 5 mg/100 ml) 5 Mg/100 Ml Piggyback, 1 07/03/16 Zoledronic Acid (Zoledronic Acid) 4 Mg Vial, 1 IVP 07/03/16 Biotin (Biotin) 2,500 Mcg Capsule, 2 PO DAILY 07/03/16 Cholecalciferol (Vitamin D3) (Vitamin D-3) 2,000 Unit Capsule, 1 PO DAILY 07/03/16 Multivitamin (Multi Vitamin Daily) 1 Each Tablet, 1 PO DAILY 07/03/16 Ascorbic Acid (Vitamin C) 500 Mg Tablet, 1 TAB PO DAILY, TAB 07/03/16 Guaifenesin (Guaifenesin) 400 Mg Tablet, 400 MG PO BID 07/03/16 Docusate Sodium (Docusate Sodium) 250 Mg Capsule, 1 CAP PO BID Y for PRN ORDERS , CAP 07/03/16 Pantoprazole Sodium (Protonix) 40 Mg Tablet.dr, 40 MG PO ACB for ACID REFLUX, TAB Take 1 tablet, by mouth, one time a day before breakfast. 07/03/16 Atorvastatin Calcium (Lipitor) 20 Mg Tablet, 1 TAB PO HS, TAB 07/03/16 Lisinopril (Lisinopril) 20 Mg Tablet, 20 MG PO HS, TAB 07/03/16 Loratadine (Claritin) 10 Mg Tablet, 10 MG PO HS 07/03/16 Aspirin (Aspirin) 81 Mg Tab.chew, 1 TAB PO HS, #30 TAB 3 Refills 07/03/16 Metoprolol Tartrate (Metoprolol Tartrate) 25 Mg Tablet, 12.5 MG PO BIDWM, TAB Take 1 tab, by mouth, two time a day with meals. 07/03/16 Allergies: Coded Allergies: morphine (Verified Allergy, Intermediate, VOMITING, 07/03/16) Penicillins (Verified Allergy, Mild, 07/03/16) voice change Impression/Recommendation Impression Patient examined, chart reviewed, CT scan reviewed with Dr. Paula and compared to images from December 2015. She has mild distention of the stomach and there is some fibrotic area around the duodenum. She has a history of a GI bleed with surgery for the GI bleed with question of perforation. This is not significantly different than the CT scan from [facility] on 01/02/16 Dr. Paula and I compared with. She is feeling much better today and is ready to go home. Discussed with Dr. Garza. Will need upper endoscopy to evaluate the cause of the nausea and vomiting. This will be arranged with Dr. Antoni Murry in [place]. She will come in for her Herceptin and Perjeta on Thursday as scheduled. We'll see the patient back in 2-3 weeks to review findings of upper endoscopy. I participated in the development of the plan of care of this patient with Palma Lemus and agree with documentation of Palma Lemus. Discussed with Dr. Antoni Murry and will schedule appointment for follow-up. Recommendation Upper endoscopy with Dr. Antoni Murry and [place] Herceptin Perjeta on Thursday Follow-up in the office in 2-3 weeks. DERIC LEMUS APRN Jul 04, 2016 08:53 YOLANDA TEAGUE Jul 04, 2016 14:44
--- NOTE | 2016-07-04 09:09 | DI ---
Indication: ITS.REASON: metastatic breast Ca, intractable nausea and vomiting PROCEDURE: CT ABD/PELVIS W/CONTRAST ONLY: Encounter: Initial Comparison: None Technique: Axial CT images were performed through the abdomen and pelvis after the administration of intravenous contrast. Coronal and sagittal two-dimensional reformats. Automated Exposure Control and Iterative Reconstruction dose reducing techniques were utilized. Contrast: Omnipaque 300 67 mL Findings: Mild atelectasis in the lung bases. Surgical clips near the GE junction and lower esophageal segment. There is mild lower esophageal wall thickening which could be due to posttreatment changes or prior surgery. Mild esophagitis is not excluded. The liver appears normal without enhancing mass or bile duct dilatation. The gallbladder is surgically absent. The spleen is diminutive but otherwise unremarkable. The pancreas appears normal. The adrenal glands are normal. Small right renal cyst. Kidneys are otherwise normal. Previously repaired aortic aneurysm noted with an aortobiiliac endovascular graft. Stomach is mildly distended. There is some hazy soft tissue in the region of the tyra hepatis which is ill-defined but does appear to cause some narrowing of the first portion of the duodenum. The patient reportedly had known metastatic disease in this location previously. There is also some slight wall thickening of the antrum and pylorus of the stomach and first portion of the duodenum as well. No other areas of abdominal or pelvic adenopathy. Scattered atherosclerotic plaque in the abdominal aorta and its major branches. The bladder is unremarkable. Uterus is surgically absent. Moderate stool in the colon. Oral contrast is seen throughout the majority of the small bowel loops. Bone windows show degenerative changes and mild scoliosis in the spine. Impression: Ill-defined soft tissue in the region of the tyra hepatis causing some narrowing of the first portion of the duodenum. This could be causing a partial gastric outlet obstruction, however oral contrast is seen traversing through the majority of the small bowel. Mild mucosal thickening in the distal stomach and proximal duodenum as well could represent inflammation or ulcer disease. Upper endoscopy to exclude ulcer disease or nuclear medicine gastric emptying study could be performed for further evaluation as clinically indicated. There is a preliminary report by [employer]. .
[2016-07-04 10:40] VITALS: BP_SYST 106; BP_SYST 116; BP_SYST 96; BP_DIAS 49; BP_DIAS 52; BP_DIAS 63; PULSE 50
[2016-07-04] MEDS ORDERED: FLEET PHOSPHO-SODA 133 ML ENEMA RECTALLY PRN (10:45)
[2016-07-04] MEDS ORDERED: BISACODYL 10 MG SUPPOSITORY RECTALLY PRN (10:45)
--- NOTE | 2016-07-04 11:00 | NUR ---
BISMARK CM IN TO VISIT WITH PT. CM EXPLAINED ROLE AND PROVIDED CONTACT INFORMATION. PT DENIES HOME NEEDS.
[2016-07-04] MEDS ORDERED: PANT40TA PO (15:09)
--- NOTE | 2016-07-04 15:10 | NUR ---
Status Pt A/O x3, V/S stable on RA. Lg BM today after enema, urine output low. Pt eating and drinking well, off NPO and no N/V. Ambulating well up at julio in room, denies SOA or dizziness. Pt denies pain and no PRN meds given. PAC flushing and aspirating well. Addendum: 07/04/16 at 1638 by LISANDRO BRIDGES RN PAC DC'd, hep flushed locked. Lt FA IV site DC'd, cath tip intact.
--- NOTE | 2016-07-04 15:27 | DSPDOC ---
General Date Date DATE: 07/04/16 TIME: 15:17 Attending Physician Lou Garza MD Admitting Physician Lou Garza MD Consulting Physician Wolfgang Teague Admitting Diagnosis intractable nausea and vomiting, dehydration Discharge Diagnosis 1. Intractable nausea/vomiting 2. Duodenal inflammation/duodenitis 3. Orthostatic hypotension 4. Dehydration 5. Hyponatremia 6. Metastatic breast cancer Laboratory Laboratory Tests Test 07/03/16 17:46 07/04/16 04:36 Urine Collection Type Cleancatch-midstream Urine Color Yellow (YELLOW) Urine Turbidity Clear (CLEAR) Urine pH 6.0 (5.0-8.0) Urine Specific [place] 1.015 (1.015-1.025) Urine Protein Negative (NEGATIVE) Urine Glucose (UA) Negative (NEGATIVE) Urine Ketones Negative (NEGATIVE) Urine Blood 2+ (NEGATIVE) Urine Nitrite Negative (NEGATIVE) Urine Bilirubin Negative (NEGATIVE) Urine Urobilinogen 0.2EU/DL (NORMAL) Urine Leukocyte Esterase 1+ (NEGATIVE) Urine RBC 0-1/HPF (0-3) Urine WBC 1-3/HPF (0-5) Urine Squamous Epithelial Cells None seen Urine Amorphous Urates Few Urine Bacteria None seen (NEGATIVE) Urine Culture Indicated Cult not indicated White Blood Count 6.3T/MM3 (4.5-11.0) Red Blood Count 2.70M/MM3 (4.00-5.20) Hemoglobin 9.0GM/DL (12-16) Hematocrit 26.4% (36-46) Mean Corpuscular Volume 97.8UM3 (80-100) Mean Corpuscular Hemoglobin 33.3UUG (26-34) Mean Corpuscular Hemoglobin Concent 34.1GM/DL (31-37) RDW Standard Deviation 43.8FL (36.9-50.2) Platelet Count 234T/MM3 (130-400) Mean Platelet Volume 9.3UM3 (9.4-12.4) Immature Granulocyte % (Auto) 0.2% (0.0-0.5) Neutrophils (%) (Auto) 75.2% (33-66) Lymphocytes (%) (Auto) 12.8% (23-45) Monocytes (%) (Auto) 11.6% (0-9.0) Eosinophils (%) (Auto) 0.0% (0-4) Basophils (%) (Auto) 0.2% (0-2) Absolute Immature Granulocyte (auto 0.01T/MM3 (0.00-0.03) Absolute Neutrophils (auto) 4.8T/MM3 (1.8-7.7) Absolute Lymphocytes (auto) 0.8T/MM3 (1-4.8) Absolute Monocytes (auto) 0.7T/MM3 (0-0.8) Absolute Eosinophils (auto) 0.0T/MM3 (0-0.5) Absolute Basophils (auto) 0.0T/MM3 (0-0.2) Turbidity < 20 (0-20) Sodium Level 130MEQ/L (134-144) Potassium Level 3.5MEQ/L (3.6-5) Chloride Level 100MEQ/L (98-107) Carbon Dioxide Level 23MEQ/L (22-30) Anion Gap 7MEQ/L (5-15) Blood Urea Nitrogen 10.0MG/DL (7-17) Creatinine 0.5MG/DL (0.7-1.2) Glomerular Filtration Rate Calc 121 BUN/Creatinine Ratio 20RATIO (6-26) Glucose Level 108MG/DL (65-110) Calculated Osmolality 251MOSM/KG (261-280) Calcium Level 8.2MG/DL (8.4-10.2) Phosphorus Level 2.3MG/DL (2.5-4.5) Magnesium Level 1.9MG/DL (1.6-2.3) Icterus Index < 2 (0-7) Albumin 2.5G/DL (3.5-5.0) Chemistry Specimen Hemolysis < 15 (0-25) Radiology CT of abdomen/pelvis on date of admission revealed: Ill-defined soft tissue in the region of the tyra hepatis causing some narrowing of the first portion of the duodenum. This could be causing a partial gastric outlet obstruction, however oral contrast is seen traversing through the majority of the small bowel. Mild mucosal thickening in the distal stomach and proximal duodenum as well could represent inflammation or ulcer disease. Upper endoscopy to exclude ulcer disease or nuclear medicine gastric emptying study could be performed for further evaluation as clinically indicated. History of Present Illness Mrs. 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 She has been receiving chemotherapy with Herceptin and PERJETA since October 2014. She has tolerated therapy well but over the past 2 weeks she developed recurring episodes of nausea, vomiting, and dry heaves. She denies hematemesis or coffee-ground emesis. She has not had bilious emesis. Vomiting is been somewhat cyclic occur about every other day and she's generally been able to maintain good intake of liquids with small amounts of foods on alternate days. She was seen in the [place] emergency room about a week ago and kept overnight for IV fluids and subsequently saw her primary care physician earlier this week for a physical but no further interventions were felt necessary at that time. Patient reports that she consistently feels better after she vomits due to a sense of general unease and nausea which is relieved. She tried taking prescribed nausea medications on one occasion which relieved symptoms for about 4 hours but was then followed by vomiting and subsequently she has not continued to use it. She denies diarrhea, dizziness, fevers, or chills. Urine output has been good and she is not noted change in color or decreased frequency. She was seen by Dr. Teague the office today due to persistent GI symptoms or she was found to be orthostatic and hyponatremic. She is hospitalized now for continuation of fluids and further assessment. Hospital Course 07/03/16 Mrs. Vidales presents with recurrent nausea/vomiting having required IV fluids overnight previously at the [facility]. She's developed hyponatremia (127) in conjunction with GI symptoms although creatinine has remained relatively stable and urine is negative for ketones. She is significantly orthostatic. IV fluids will be continued for hydration. Case has been discussed with Dr. Teague. CT of the abdomen and pelvis has been scheduled with contrast to evaluate extent of adenopathy and determine if there is partial small bowel obstruction contributing to persistent symptoms. Limited home medications will be utilized and patient will be allowed to eat as tolerated. Antiemetics are available if needed. 07/04/16 Mrs. iVdales reported improvement in nausea and vomiting with tolerance of food following CT scan yesterday evening and continue tolerance of solid food this morning. There is minimal orthostatic change present although blood pressure does drop from 116/68 lying to 96/49 standing without development of symptoms. It should be noted that lisinopril remains on hold. Patient has been voiding without difficulty. CT of the abdomen and pelvis was obtained demonstrating an ill-defined soft tissue in the region of the tyra hepatis causing some narrowing of the first portion of the duodenum which may cause partial gastric oral obstruction although oral contrast passed through without difficulty. There is some thickening in the distal stomach and proximal jejunum suggestive of inflammatory change or peptic disease. Protonix was increased to 40 mg twice a day. EGD was recommended but could not be coordinated with surgical schedule at [facility] today and patient preferred to have follow- up testing done at [facility]. Dr. Teague is coordinating referral to gastroenterology or manager surgical in [place] to facilitate EGD in the near future. Additionally CT imaging suggested moderate left sided constipation for which fleets enema was administered with good results. Patient continued to do well through the early part of the afternoon and was felt stable for discharge at this time. Hyponatremia had improved. No further problems were identified during the hospital stay. Patient is to follow up with Dr. Teague as previously scheduled. She is asked to hold lisinopril and to monitor blood pressure intermittently and follow-up with her primary care physician for reassessment of blood pressure needs. Problems: Code Status Full Code Home Meds Active Scripts Pantoprazole Sodium (Protonix) 40 Mg Tablet.dr, 40 MG PO BID, #60 TAB Take 1 tablet, by mouth, one time a day before breakfast. Prov:LOU GARZA MD 07/04/16 Reported Medications Zoledronic Acid/Mannitol&Water (Zoledronic Acid 5 mg/100 ml) 5 Mg/100 Ml Piggyback, 1 07/03/16 Zoledronic Acid (Zoledronic Acid) 4 Mg Vial, 1 IVP 07/03/16 Biotin (Biotin) 2,500 Mcg Capsule, 2 PO DAILY 07/03/16 Cholecalciferol (Vitamin D3) (Vitamin D-3) 2,000 Unit Capsule, 1 PO DAILY 07/03/16 Multivitamin (Multi Vitamin Daily) 1 Each Tablet, 1 PO DAILY 07/03/16 Ascorbic Acid (Vitamin C) 500 Mg Tablet, 1 TAB PO DAILY, TAB 07/03/16 Guaifenesin (Guaifenesin) 400 Mg Tablet, 400 MG PO BID 07/03/16 Docusate Sodium (Docusate Sodium) 250 Mg Capsule, 1 CAP PO BID Y for PRN ORDERS , CAP 07/03/16 Atorvastatin Calcium (Lipitor) 20 Mg Tablet, 1 TAB PO HS, TAB 07/03/16 Loratadine (Claritin) 10 Mg Tablet, 10 MG PO HS 07/03/16 Aspirin (Aspirin) 81 Mg Tab.chew, 1 TAB PO HS, #30 TAB 3 Refills 07/03/16 Metoprolol Tartrate (Metoprolol Tartrate) 25 Mg Tablet, 12.5 MG PO BIDWM, TAB Take 1 tab, by mouth, two time a day with meals. 07/03/16 Discontinued Reported Medications Lisinopril (Lisinopril) 20 Mg Tablet, 20 MG PO HS, TAB 07/03/16 Face to Face Encounter I met with patient on the day of dismissal and discussed follow up appointments , medications, and safety plan. Discharge Disposition Home Copies To 1: WOLFGANG TEAGUE Documentation Requirements Anemia Anemia Acuity: Chronic LOU GARZA MD Jul 04, 2016 15:24
--- NOTE | 2016-07-04 16:36 | NUR ---
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 No new questions, denies pain. Taken to door at 1630 via WC.
== END 2016-07-04 16:30 | disposition home or self-care (01) ==
LOC: MED 17:02
PROVIDERS: ADMIT Internal Medicine; ATTEND Internal Medicine
DX: R11.2 Nausea with vomiting, unspecified (principal); K29.80 Duodenitis without bleeding; I95.1 Orthostatic hypotension; E86.0 Dehydration; E87.1 Hypo-osmolality and hyponatremia; J30.9 Allergic rhinitis, unspecified; G62.0 Drug-induced polyneuropathy; T45.1X5A Adverse effect of antineoplastic and immunosuppressive drugs, initial encounter; Y92.89 Other specified places as the place of occurrence of the external cause; E78.5 Hyperlipidemia, unspecified; I10 Essential (primary) hypertension; I25.10 Atherosclerotic heart disease of native coronary artery without angina pectoris; Z95.5 Presence of coronary angioplasty implant and graft; C50.811 Malignant neoplasm of overlapping sites of right female breast; C77.2 Secondary and unspecified malignant neoplasm of intra-abdominal lymph nodes; Z17.1 Estrogen receptor negative status [ER-]; F17.210 Nicotine dependence, cigarettes, uncomplicated; Z87.11 Personal history of peptic ulcer disease; Z79.82 Long term (current) use of aspirin; Z79.899 Other long term (current) drug therapy; Z90.13 Acquired absence of bilateral breasts and nipples
CPT/HCPCS: 74177; 80069; 81001; 83735; 85025; 96360; 96361; 99406; A9270; G0378; J1642; J7030; J7050; Q9967; 99218